=== PATIENT | male | born 1950 | race Caucasian/White ===

== ENCOUNTER 2017-09-24 17:31 | Emergency (ER) | payer OTHER, SELFPAY ==
[2017-09-24 17:36] VITALS: BP 108/68; PULSE 71; RESP 14; TEMP 36.7; O2SAT 93; BMI 30.1
--- NOTE | 2017-09-24 18:24 | PC.NURSE ---
Patient is being treated for multiple myeloma and had stem cell transplants done. He is c/o of headache since September 07. He has stiffness/pain in the neck that comes up the side of the head and around his left eye. There is redness, swelling, and drooping of the left eye.
[2017-09-24 18:30] VITALS: BP 106/68; PULSE 65; RESP 17; O2SAT 92
--- NOTE | 2017-09-24 19:04 | ED_ITS ---
HPI - Neuro Symptoms/Deficit General Chief Complaint: Neuro Symptoms/Deficit Stated Complaint: HEADACHE SINCE THE /DROOPY EYE Time Seen by Provider: 09/24/17 17:51 Source: patient, RN notes reviewed and old records reviewed Limitations: no limitations History of Present Illness HPI Narrative: Patient is a 67-year-old male with history of multiple myeloma presenting with ongoing left-sided headache and neck pain since 09/07/2017. He has been taking Tylenol and his pain medications of morphine and fentanyl patch without any relief. He has noticed his left eyelid is droopy but he has no vision problems. No worsening balance no numbness or tingling. He has not had any fever. He is also having bilateral rib pain he had x-ray somewhere thought to have new lesions. He denies any cough or shortness of breath. He had blood work as outpatient earlier today he is pancytopenic. Onset (ago): week(s) Relieving factors: none On Anticoagulants: Yes (aspirin 81 mg) Associated symptoms: denies other symptoms Related Data Home Medications Medication Instructions Recorded Confirmed aspirin 81 mg PO QDAY #0 10/18/16 09/24/17 sulfamethoxazole-trimethoprim 1 tab PO BID #0 08/03/17 09/24/17 cholecalciferol (vitamin D3) 400 unit PO DAILY 09/24/17 09/24/17 fludrocortisone 0 mg PO SEE INSTRUCTIONS 09/24/17 09/24/17 sennosides [senna] 0 mg PO HS 09/24/17 09/24/17 Previous Rx's Medication Instructions Recorded acyclovir 800 mg PO BID #180 tab 03/19/17 docusate sodium 200 mg PO BID #60 tab 03/19/17 potassium chloride [Klor-Con M20] 10 meq PO BID #60 tab 03/19/17 omeprazole 20 mg PO HS #90 cap 04/07/17 venlafaxine 150 mg PO QDAY #90 cap 04/07/17 hydrocortisone 5 mg PO Q DAY #90 tab 08/14/17 hydrocortisone [Cortef] 15 mg PO AMCC #90 tab 08/14/17 morphine 60 mg PO Q8H #90 tab 08/14/17 atorvastatin [Lipitor] 10 mg PO HS #90 tab 08/24/17 fentanyl 1 patch TOPICAL Q72H #10 patch 04/09/18 gabapentin [Neurontin] 800 mg PO TID #180 cap 08/31/17 Allergies Allergy/AdvReac Type Severity Reaction Status Date / Time aripiprazole [ARIPIPRAZOLE] Allergy Severe BLACKED Verified 09/24/17 19:03 OUT, FLAT, COULDN'T THINK paroxetine [PAROXETINE] Allergy Severe SUICIDE Verified 09/24/17 19:03 THOUGHTS, REVED UP buspirone [BUSPIRONE] Allergy Mild NO Verified 09/24/17 19:03 FEELINGS, BONE carbamazepine [CARBAMAZEPINE] Allergy Mild RASH Verified 09/24/17 19:03 Monoamine Oxidase Inhibitors Allergy Mild DEPRESSION Verified 09/24/17 19:03 [MONOAMINE OXIDASE INHIBITORS] acetaminophen [From TYLENOL] AdvReac Severe liver Verified 09/24/17 19:03 issues lorazepam [From ATIVAN] AdvReac Severe SHAKING, Verified 09/24/17 19:03 AGITATION, CONFUSED pregabalin [From LYRICA] AdvReac Unknown CONFUSION Verified 09/24/17 19:03 Review of Systems Constitutional Denies chills, Denies excessive sweating (sweats on the left side. hasn't noticed issues), Reports fatigue, Denies fever(s), Denies frequent falls, Reports headache(s), Denies lethargy and Denies weakness Eyes Reports as per HPI, Denies blurry vision, Denies exophthalmos, Denies change in vision, Denies diplopia, Denies dry eyes and Denies eye pain ENT Ears, Nose, Mouth, and Throat: Denies vertigo, Denies dizziness, Reports headache(s) and Reports neck pain Cardiovascular Denies chest pain, Denies irregular heart rhythm, Denies lightheadedness, Denies palpitations, Denies dyspnea, Denies dyspnea on exertion and Denies orthopnea Respiratory Denies cough, Denies dyspnea, Denies dyspnea on exertion and Denies wheezing Gastrointestinal Gastrointestinal: Denies abdominal pain, Denies change in bowel habits, Denies diarrhea, Denies nausea and Denies vomiting Genitourinary Denies hematuria, Denies flank pain, Denies urinary incontinence and Denies urinary urgency Musculoskeletal Denies joint swelling, Reports neck pain and Denies numbness Neurologic Denies confusion, Denies vertigo, Denies dizziness, Denies frequent falls, Reports headache(s), Denies memory loss, Denies numbness and Denies weakness Psychiatric Denies confusion and Denies memory loss Endocrine Denies excessive sweating (sweats on the left side. hasn't noticed issues), Reports fatigue and Denies palpitations Allergic/Immunologic Denies wheezing [facility] Social History Smoking Status: Never smoker Exam Const General: cooperative and ill appearing (Chronically ill) Nutritional Appearance: average body habitus Orientation: alert, awake and oriented x3 [facility] Head: normal to inspection, normocephalic and atraumatic Eyes Eyelids: eyelid abnormality left upper eyelid (Slight drooping) erythema (Very mild) and ptosis; without lacerations, without swelling, nontender and without xanthelasmas Conjunctivae: conjunctivae normal Pupils: PERRL (bilaterally. Red reflex present bilaterally) EOM: EOM intact bilaterally Neck Neck: normal visual inspection, full ROM, trachea midline, supple, No midline deformity, tender (Left side laterally no vertebral tenderness no step-offs) and No submandibular swelling Resp Effort & Inspection: normal respiratory effort, able to speak in complete sentences, no respiratory distress and no use of accessory muscles Auscultation: clear to auscultation bilaterally, no rales, no rhonchi and no wheezes Cardio Rate: regular rate Rhythm: regular rhythm Heart Sounds: no click, no gallops, no murmurs and no rubs Pulses: normal peripheral pulses GI Inspection: non-distended Palpation: soft, no hepatosplenomegaly, No guarding, No pulsatile mass and No tender Auscultation: normal bowel sounds Skin General: no rashes or lesions noted, No jaundice and No petechiae Neuro General: alert, oriented x3, gait normal and no focal motor deficits Cranial Nerves: CN's II-XI intact bilaterally Speech: speech normal Motor: strength 5/5 throughout Sensory Exam: no sensory deficits noted MDM - Neuro Symptoms/Deficit MDM Narrative Medical decision making narrative: Patient does have isolated the ptosis no myosis or anhidrosis He is having neck pain. Initial noncontrast head CT and neck are negative. However still having some all left-sided pain. CT angio to rule out any kind of dissection or mass. CT angio negative. Pain is much better. Patient's blood work from earlier today is reviewed he is pancytopenic but at baseline no fever no sign or symptoms of acute infection. This is been ongoing head and neck pain for a couple of weeks. They have an appointment with his oncologist in 5 days. NIH STROKE SCALE: Score=[0] 1a. LOC=0 1b. LOC questions= 0 -->What month is it? How old are you? 1c. LOC commands=0 -->Open and close your eyes. Squeezer Operator and release your hand 2. Best gaze=0 3. Visual Mccarthy=0 4. Facial Palsy=0 5. Motor Arm --Right=0 --Left=0 6. Motor Leg --Right=0 --Left=0 7. Limb Ataxia=0 8.Sensory=0 9. Best language=0 10. Dysarthria=0 11.Extinction and Inattention=0 Differential: Blepharitis, isolated ptosis, Eileen's, medication reaction, meningitis Lab Data Attestation: I reviewed the patient's lab results. Lab Results 09/24/17 09/24/17 Range/Units 19:18 19:18 Lactate 0.8 (0.7-2.1) mmol/L Procalcitonin < 0.05 (<0.5) ng/mL Imaging Data CT scan - head: Radiologist's impression: PROCEDURE: CT HEAD/BRAIN WO CON INDICATIONS: Persistent headache left eyelid droop TECHNIQUE: Noncontrast 4.5 mm thick angled axial sections acquired from the foramen magnum to the vertex, with coronal and sagittal reformats. For radiation dose reduction, the following was used: automated exposure control, adjustment of mA and/or kV according to patient size. COMPARISON: [facility], CT, HEAD WITHOUT CONTRAST, 02/08/2017, 13:50. FINDINGS: Image quality: Excellent. CSF spaces: Basal cisterns are patent. No extra-axial fluid collections. The ventricles are symmetric in size and shape. Brain: No intracranial bleeds or masses. There is cerebral volume loss for age , with resultant ventricular and sulcal prominence. There are periventricular and deep white matter chronic small vessel ischemic changes. There is intracranial internal carotid artery atherosclerosis. Skull and face: Calvarium and visualized facial bones appear intact, without suspicious lesions. Sinuses: Visualized sinuses and mastoids are clear. IMPRESSION: No acute intracranial disease process. CT spine: Radiologist's impression: PROCEDURE: CT CERVICAL SPINE WO CON INDICATIONS: Left-sided neck pain TECHNIQUE: Noncontrast 3 mm thick sections acquired from the skull base to the T4 level. Sagittal and coronal reformats were then constructed. For radiation dose reduction, the following was used: automated exposure control, adjustment of mA and/or kV according to patient size. COMPARISON: None. FINDINGS: Image quality: Excellent. Bones: No fractures or dislocations. Visualized superior ribs are intact. Spine degenerative disease and facet arthropathy noted. Soft tissues: Prevertebral soft tissues are normal in thickness. No paravertebral hematomas. No apical pneumothoraces. IMPRESSION: No fracture. No acute osseous lesion. If there are persistent symptoms or continued clinical suspicion for pathology, then MRI should be considered for further evaluation. Angio head and neck: Radiologist's impression: application services manager report: CT angio brain no acute findings, CT angio neck no acute findings Course Hospital Course: Patient's pain improved some after Toradol but still having. Given a dose of Dilaudid. Patient's pain improved more. Orders Ordered: ED Orders 09/24/17 19:18 Lactate (Lactic Acid) Urgent Procalcitonin Stat 09/24/17 19:19 XR chest 2V Stat 09/24/17 19:20 CT cervical spine wo con Stat CT head/brain wo con Stat 09/24/17 21:25 CT angio head and neck Stat Discontinued Medications Hydromorphone HCl (Dilaudid) 1 mg IV NOW ONE Stop: 09/24/17 20:25 Last Admin: 09/24/17 21:16 Dose: Hydromorphone HCl (Dilaudid) 1 mg IV NOW ONE Stop: 09/24/17 21:19 Last Admin: 09/24/17 21:20 Dose: 1 mg Sodium Chloride (Normal Saline 0.9%) 1,000 mls @ 1,000 mls/hr IV BOLUS ONE Stop: 09/24/17 20:17 Last Infusion: 09/24/17 21:42 Dose: 0 mls/hr Admin: 09/24/17 20:10 Dose: 1,000 mls/hr Ketorolac Tromethamine (Toradol) 30 mg IV NOW ONE Stop: 09/24/17 19:19 Last Admin: 09/24/17 20:10 Dose: 30 mg Last Vital Signs Temp 98.1 F 09/24/17 17:36 Pulse 67 09/24/17 22:36 Resp 12 09/24/17 22:36 BP 114/73 09/24/17 22:36 Pulse Ox 92 09/24/17 22:36 Discharge Plan Departure Patient Disposition: Home, Self-Care Clinical Impression: Ptosis of eyelid, left, Headache Discharge Date/Time: 09/24/17 23:10 Interventions: ED Discharge Assessment Last Done: 09/24/17 23:07 Instructions: DI for Headache Activity Restrictions/Additional Instructions: *You have been diagnosed with headache and left eyelid drooping *What to do: At this time eyelid does not look infected all CT scans were negative today. No other sign of infection at this time. *Take medications as directed *Follow up with your primary care provider in 2-3 days, follow up with Oncology as previously scheduled *Return to ER if you should have fever, weakness, increased pain, vision changes or any new, worsening or concerning symptoms Prescriptions: No Action aspirin 81 MG tablet,delayed release (DR/EC) 81 mg PO QDAY Qty: 0 RF: 0 potassium chloride [Klor-Con M20] 20 MEQ tablet,ER particles/crystals 10 meq PO BID Qty: 60 RF: 5 acyclovir 800 MG tablet 800 mg PO BID Qty: 180 RF: 3 docusate sodium 100 MG capsule 200 mg PO BID Qty: 60 RF: 11 venlafaxine 150 MG capsule,extended release 24hr 150 mg PO QDAY Qty: 90 RF: 3 omeprazole 20 MG capsule,delayed release(DR/EC) 20 mg PO HS Qty: 90 RF: 3 sulfamethoxazole-trimethoprim 800 MG/160 MG tablet 1 tab PO BID Qty: 0 RF: 0 hydrocortisone 5 MG tablet 5 mg PO Q DAY Qty: 90 RF: 0 hydrocortisone [Cortef] 10 MG tablet 15 mg PO AMCC Qty: 90 RF: 0 morphine 60 MG tablet extended release 60 mg PO Q8H Qty: 90 RF: 0 atorvastatin [Lipitor] 10 MG tablet 10 mg PO HS Qty: 90 RF: 3 fentanyl 50 MCG/HR patch 72 hour 1 patch Topical Q72H Qty: 10 RF: 0 gabapentin [Neurontin] 400 MG capsule 800 mg PO TID Qty: 180 RF: 3 sennosides [senna] 8.6 MG tablet PO HS RF: 0 fludrocortisone 0.1 MG tablet PO SEE INSTRUCTIONS RF: 0 cholecalciferol (vitamin D3) 400 unit Tablet 400 unit PO DAILY RF: 0 Referrals: Tulio Daigle MD [Primary Care Provider] -
--- NOTE | 2017-09-24 19:19 | DI.RAD.S_ITS ---
PROCEDURE: XR CHEST 2V INDICATIONS: bilateral rib pain hx of multiple myeloma and Pneumocystis TECHNIQUE: 2 views of the chest were acquired. COMPARISON: [facility], , CHEST 2 VIEW, 07/13/2017, 16:09. FINDINGS: Surgical changes and devices: Right chest wall Port-A-Cath is stable.. Lungs and pleura: No pleural effusions or pneumothorax. Lungs are clear. Mediastinum: Mediastinal contours are normal. Heart size is normal. Bones and chest wall: Multiple bilateral rib fractures are stable. Chronic T12 compression fracture is stable. No suspicious bony abnormalities. Soft tissues appear unremarkable. IMPRESSION: No acute cardiopulmonary disease process. Dictated by: Lida Simpson MD, PhD on 09/24/2017 at 19:55 Approved by: Lida Simpson MD, PhD on 09/24/2017 at 19:56
--- NOTE | 2017-09-24 19:20 | DI.CT.S_ITS ---
PROCEDURE: CT CERVICAL SPINE WO CON INDICATIONS: Left-sided neck pain TECHNIQUE: Noncontrast 3 mm thick sections acquired from the skull base to the T4 level. Sagittal and coronal reformats were then constructed. For radiation dose reduction, the following was used: automated exposure control, adjustment of mA and/or kV according to patient size. COMPARISON: None. FINDINGS: Image quality: Excellent. Bones: No fractures or dislocations. Visualized superior ribs are intact. Spine degenerative disease and facet arthropathy noted. Soft tissues: Prevertebral soft tissues are normal in thickness. No paravertebral hematomas. No apical pneumothoraces. IMPRESSION: No fracture. No acute osseous lesion. If there are persistent symptoms or continued clinical suspicion for pathology, then MRI should be considered for further evaluation. Dictated by: Lida Simpson MD, PhD on 09/24/2017 at 19:56 Approved by: Lida Simpson MD, PhD on 09/24/2017 at 20:00
--- NOTE | 2017-09-24 19:20 | DI.CT.S_ITS ---
PROCEDURE: CT HEAD/BRAIN WO CON INDICATIONS: Persistent headache left eyelid droop TECHNIQUE: Noncontrast 4.5 mm thick angled axial sections acquired from the foramen magnum to the vertex, with coronal and sagittal reformats. For radiation dose reduction, the following was used: automated exposure control, adjustment of mA and/or kV according to patient size. COMPARISON: [facility], CT, HEAD WITHOUT CONTRAST, 02/08/2017, 13:50. FINDINGS: Image quality: Excellent. CSF spaces: Basal cisterns are patent. No extra-axial fluid collections. The ventricles are symmetric in size and shape. Brain: No intracranial bleeds or masses. There is cerebral volume loss for age, with resultant ventricular and sulcal prominence. There are periventricular and deep white matter chronic small vessel ischemic changes. There is intracranial internal carotid artery atherosclerosis. Skull and face: Calvarium and visualized facial bones appear intact, without suspicious lesions. Sinuses: Visualized sinuses and mastoids are clear. IMPRESSION: No acute intracranial disease process. Dictated by: Lida Simpsno MD, PhD on 09/24/2017 at 20:00 Approved by: Lida Simpson MD, PhD on 09/24/2017 at 20:02
[2017-09-24 19:58] VITALS: BP 122/72; PULSE 68; RESP 15; O2SAT 93
[2017-09-24] MEDS: SODIUM CHLORIDE 0.9% 1,000 ML 1000 ML IV (20:10)
[2017-09-24] MEDS: KETOROLAC 60 MG/2 ML VIAL 30 MG IV (20:10)
[2017-09-24 20:18] LABS: Lactate (Lactic Acid) 0.8 mmol/L (0.7-2.1)
[2017-09-24 20:34] LABS: Procalcitonin < 0.05 ng/mL (<0.5)
[2017-09-24 21:05] VITALS: BP 118/66; PULSE 72; RESP 15; O2SAT 94
[2017-09-24] MEDS: HYDROMORPHONE 2 MG INJ 1 MG IV (21:20)
--- NOTE | 2017-09-24 21:25 | DI.CT.S_ITS ---
PROCEDURE: CT ANGIO HEAD AND NECK INDICATIONS: left ptosis with neck pain TECHNIQUE: Pre-contrast 4.5 mm thick sections acquired from the foramen magnum to the vertex. After the administration of intravenous contrast, 1 mm thick sections acquired from the aortic arch through the [place] of [place]. Post-contrast 4.5 mm thick sections then re-acquired from the foramen magnum to the vertex. 3-dimensional spbrwve-zdcgqjmvh-fzayszkuvy (MIP) and/or volume rendering reformats were acquired of the central intracranial vasculature and neck separately. COMPARISON: [facility], CT, SOFT TISSUE NECK W CONTRAST, 02/08/2017, 13:50. [facility], CR, XR CHEST 2V, 09/24/2017, 19:04. FINDINGS: Image quality: Excellent. BRAIN: CSF spaces: Ventricles are normal in size and shape. Basal cisterns are patent. No extra-axial fluid collections. Brain: No midline shift. No intracranial bleeds or masses. Osman-white matter interface appears intact. Skull and face: Calvarium and facial bones appear intact, without suspicious lesions. Orbits appear normal. Sinuses: Sinuses and mastoids are clear. HEAD CT ANGIOGRAPHY: Anterior circulation: Intracranial internal carotid arteries are normal in size and flow. The flow within the paired anterior cerebral arteries is normal and symmetric. The flow within the middle cerebral arteries is normal and symmetric. The anterior communicating artery is seen. No aneurysms are seen. Posterior circulation: Visualized portions of the vertebral arteries demonstrate normal caliber, and join to form a normal appearing basilar artery. Flow within the posterior cerebral arteries is normal and symmetric. No aneurysms are seen. NECK CT ANGIOGRAPHY: Carotid system: The great vessels demonstrate a bovine anatomy as they arise from the aortic arch. The origins of the common carotid arteries appear patent. The common carotid arteries demonstrate normal caliber and courses. The bifurcation regions are both widely patent. The internal carotid arteries demonstrate normal calibers and courses. Posterior circulation: The origins of the vertebral arteries both appear widely patent. The more superior extracranial portions of both vertebral arteries also demonstrate normal courses and calibers. They join to form a normal appearing basilar artery. Soft tissues: Visualized neck soft tissues demonstrate no suspicious abnormalities. Nonspecific scattered scarring/atelectasis in the lung apices Bones: No suspicious bony lesions. Straightening of the normal cervical lordosis and multilevel discogenic changes. Visualized cervical spine appears normally aligned. Chronic left rib fracture with callus formation. IMPRESSION: Normal CTA head. No evidence of focal stenosis or occlusion. Dominant left vertebral artery, and hypoplastic right vertebral artery. No ICA stenosis. Any quantitative measurements of stenosis were performed using NASCET criteria. Dictated by: Jaren Miranda M.D. on 09/25/2017 at 7:40 Approved by: Jaren Miranda M.D. on 09/25/2017 at 7:50
[2017-09-24 21:40] VITALS: BP 117/71; PULSE 68; O2SAT 94
[2017-09-24 22:36] VITALS: BP 114/73; PULSE 67; RESP 12; O2SAT 92
== END 2017-09-24 23:10 | disposition home or self-care (01) ==
PROVIDERS: Emergency Provider Emergency Medicine; Family Provider Internal Medicine; PCP Internal Medicine
DX: H02.402 Unspecified ptosis of left eyelid (principal); R51 Headache
CPT/HCPCS: 36415; 36591; 70450; 70496; 70498; 71046; 72125; 80053; 82784; 83605; 83883; 84145; 84155; 84165; 85025; 96374; 96375; 99283; 99284; 99291; J1170; J1885; Q9967

== ENCOUNTER → 2017-10-08 11:27 | Outpatient (CLI) | payer OTHER, SELFPAY ==
[2017-10-08 12:02] LABS: Add Manual Diff / Slide Review NO; Basophils Percent Auto 0.6 % (0-2); Hematocrit 31.1 % (41-53); Hemoglobin 10.6 g/dL (13.5-17.5); Lymphocytes Percent Auto 17.1 % (25-40); Mean Corpuscular HGB Conc 34.1 % (30-36); Mean Corpuscular Hemoglobin 31.8 PG (26-34); Mean Corpuscular Volume 93.2 fL (80-100); Monocytes Percent Auto 16.5 % (3-14); Neutrophils Absolute Auto 2100 /uL (3000-5900); Neutrophils Percent Auto 64.8 % (50-75); Platelet Count 37 X10^3/uL (150-400); Red Blood Cell Count 3.34 X10^6/uL (4.5-5.9); Red Cell Distribution Width 20.4 % (11.6-14.8); White Blood Cell Count 3.2 X10^3/uL (4.5-11.0)
[2017-10-08 12:17] LABS: Alanine Aminotransferase 64 IU/L (21-72); Albumin 4.3 g/dL (3.5-5.0); Albumin Globulin Ratio 1.8 (1.0-2.8); Alkaline Phosphatase 111 U/L (38-126); Aspartate Aminotransferase 61 IU/L (17-59); BUN Creatinine Ratio 22.7 (6-22); Bilirubin Total 0.4 mg/dL (0.2-1.3); Calcium 9.7 mg/dL (8.4-10.2); Estimated Glomerular Filt Rate > 60.0 mL/min (>60); Globulin 2.4 g/dL (1.7-4.1); Glucose 145 mg/dL (80-110); HEMOLYSIS < 15 (0-50); Potassium 4.4 mmol/L (3.4-5.1); Sodium 145 mmol/L (137-145); Total Protein 6.7 g/dL (6.3-8.2)
[2017-10-08 12:28] LABS: RBC Morphology Normal Morphology
--- NOTE | 2017-10-15 09:05 | ONC.NAV ---
Description: [facility] Appeal Activity: Faxed appeal to [facility] re: pt's ability to continue to receive care and treatment from Dr. Lancaster at . Sent pt copies of the appeal and letter for medical necessity.
== END ==
PROVIDERS: PCP Internal Medicine; Visit Provider Internal Medicine
DX: C90.00 Multiple myeloma not having achieved remission (principal)
CPT/HCPCS: 36415; 80053; 85025

== ENCOUNTER → 2017-10-23 15:20 | Outpatient (CLI) | payer OTHER, SELFPAY ==
[2017-10-23 16:09] LABS: Hematocrit 25.9 % (41-53); Hemoglobin 8.8 g/dL (13.5-17.5); Mean Corpuscular HGB Conc 33.8 % (30-36); Mean Corpuscular Hemoglobin 32.3 PG (26-34); Mean Corpuscular Volume 95.6 fL (80-100); Red Blood Cell Count 2.71 X10^6/uL (4.5-5.9); Red Cell Distribution Width 20.9 % (11.6-14.8)
[2017-10-23 16:13] LABS: Add Manual Diff / Slide Review YES; Alanine Aminotransferase 59 IU/L (21-72); Albumin 3.5 g/dL (3.5-5.0); Albumin Globulin Ratio 1.7 (1.0-2.8); Alkaline Phosphatase 116 U/L (38-126); Aspartate Aminotransferase 25 IU/L (17-59); BUN Creatinine Ratio 32.9 (6-22); Bilirubin Total 0.7 mg/dL (0.2-1.3); Blood Urea Nitrogen 23 mg/dL (9-20); Calcium 8.7 mg/dL (8.4-10.2); Carbon Dioxide 32 mmol/L (22-32); Chloride 100 mmol/L (98-107); Estimated Glomerular Filt Rate > 60.0 mL/min (>60); Globulin 2.1 g/dL (1.7-4.1); Glucose 103 mg/dL (80-110); HEMOLYSIS < 15 (0-50); Potassium 4.3 mmol/L (3.4-5.1); Sodium 139 mmol/L (137-145); Total Protein 5.6 g/dL (6.3-8.2)
[2017-10-23 16:57] LABS: Platelet Count 15 X10^3/uL (150-400); White Blood Cell Count 0.6 X10^3/uL (4.5-11.0)
[2017-10-23 16:58] LABS: Nucleated Red Blood Cells 6 #/Diff
[2017-10-23 16:59] LABS: Anisocytosis 3+; Macrocytosis 1+; Platelet Estimate Decreased on smear; Polychromasia 1+; Tear Drop Cells 1+
[2017-10-23 17:00] LABS: Rouleaux 1+
[2017-10-23 17:06] LABS: Neutrophils Absolute Manual 240 /uL (3000-5900); Total Cells Counted 100
== END ==
PROVIDERS: Family Provider Internal Medicine; PCP Internal Medicine; Referring Provider Internal Medicine Hematology & Oncology; Visit Provider Internal Medicine
DX: C90.02 Multiple myeloma in relapse (principal)
CPT/HCPCS: 36415; 80053; 85025

== ENCOUNTER → 2017-11-05 16:55 | Outpatient (CLI) | payer OTHER, SELFPAY ==
[2017-11-05 17:47] LABS: Hematocrit 22.4 % (41-53); Hemoglobin 7.6 g/dL (13.5-17.5); Mean Corpuscular HGB Conc 34.1 % (30-36); Mean Corpuscular Hemoglobin 33.1 PG (26-34)
[2017-11-05 17:56] LABS: Add Manual Diff / Slide Review YES; White Blood Cell Count 1.8 X10^3/uL (4.5-11.0)
[2017-11-05 18:04] LABS: Alanine Aminotransferase 40 IU/L (21-72); Albumin 3.4 g/dL (3.5-5.0); Albumin Globulin Ratio 1.8 (1.0-2.8); Alkaline Phosphatase 119 U/L (38-126); Aspartate Aminotransferase 23 IU/L (17-59); Bilirubin Total 0.5 mg/dL (0.2-1.3); Blood Urea Nitrogen 28 mg/dL (9-20); Calcium 8.5 mg/dL (8.4-10.2); Carbon Dioxide 30 mmol/L (22-32); Chloride 103 mmol/L (98-107); Estimated Glomerular Filt Rate > 60.0 mL/min (>60); Globulin 1.9 g/dL (1.7-4.1); Glucose 99 mg/dL (80-110); HEMOLYSIS < 15 (0-50); Potassium 4.1 mmol/L (3.4-5.1); Sodium 141 mmol/L (137-145); Total Protein 5.3 g/dL (6.3-8.2)
[2017-11-05 18:14] LABS: Anisocytosis 2+; Macrocytosis 2+; Neutrophils Absolute Manual 1134 /uL (3000-5900); Nucleated Red Blood Cells 5 #/Diff; Total Cells Counted 100
[2017-11-05 18:15] LABS: Platelet Estimate Decreased on smear
[2017-11-09 06:32] LABS: Platelet Count 32 X10^3/uL (150-400)
== END ==
PROVIDERS: Family Provider Internal Medicine; PCP Internal Medicine; Visit Provider Internal Medicine
DX: C90.02 Multiple myeloma in relapse (principal)
CPT/HCPCS: 36415; 80053; 85025

== ENCOUNTER 2017-11-20 20:21 | Observation (INO) | payer OTHER, SELFPAY ==
[2017-11-20 20:26] VITALS: BP 131/75; PULSE 85; RESP 24; TEMP 37.5; O2SAT 91; BMI 28.7
--- NOTE | 2017-11-20 21:10 | DI.RAD.S_ITS ---
PROCEDURE: XR CHEST 1V INDICATIONS: dizziness TECHNIQUE: One view of the chest was acquired. COMPARISON: [facility], CT, PE STUDY (CTA CHEST), 12/29/2016, 13:39. [facility], CR, CHEST 1 VIEW, 12/29/2016, 11:24. [facility], CR, CHEST 2 VIEW, 08/13/2016, 12:42. [facility], CR, XR CHEST 2V, 09/24/2017, 19:04. FINDINGS: Surgical changes and devices: Right chest port with the tip projecting in the upper SVC.. Lungs and pleura: No pleural effusions or pneumothorax. Lungs are clear. Right midlung nodular density projects over the right rib which is unchanged and presumably rib callus Mediastinum: Mediastinal contours appear normal. Heart size is normal. Bones and chest wall: No suspicious bony lesions. Bilateral chronic rib fractures with callus formation. Overlying soft tissues appear unremarkable. IMPRESSION: No acute disease. Dictated by: Jaren Miranda M.D. on 11/20/2017 at 21:42 Approved by: Jaren Miranda M.D. on 11/20/2017 at 21:46
--- NOTE | 2017-11-20 21:19 | PC.NURSE ---
pt states he feels dizzy sudden onset, no pain at this time. denies CP. Pt appears in no acute distress at this time.
[2017-11-20 21:22] LABS: Hematocrit 25.4 % (41-53); Hemoglobin 8.6 g/dL (13.5-17.5); Mean Corpuscular HGB Conc 33.8 % (30-36); Mean Corpuscular Hemoglobin 33.8 PG (26-34); Mean Corpuscular Volume 99.8 fL (80-100); Red Blood Cell Count 2.54 X10^6/uL (4.5-5.9)
[2017-11-20 21:24] LABS: Add Manual Diff / Slide Review YES
[2017-11-20 21:26] LABS: Lactate (Lactic Acid) 1.6 mmol/L (0.7-2.1); Platelet Count 36 X10^3/uL (150-400); White Blood Cell Count 1.4 X10^3/uL (4.5-11.0)
--- NOTE | 2017-11-20 21:39 | ED.FEVER ---
HPI - Fever General Chief Complaint: Fever Stated Complaint: FEVER CANCER PATIENT SOB Time Seen by Provider: 11/20/17 21:04 Source: patient Limitations: no limitations History of Present Illness HPI Narrative: The patient has multiple myeloma. He felt a stem-cell transplant March 2017. He is currently on chemotherapy. He was having a good day, he was outside doing [employer] work. This evening about 8:00 p.m. he came in, he was not feeling well. He lay down for a nap, then awoke with a fever of 102.7. He has no sinus pressure or sore throat. He denies headache or neck pain. He has no cough or chest pain. He denies abdominal pain, nausea or vomiting. He has no urinary complaints. He has no rash. He has been previously instructed by his oncology team to follow-up as soon as possible if he develops a fever. Related Data Home Medications Medication Instructions Recorded Confirmed sulfamethoxazole-trimethoprim 1 tab PO BID #0 08/03/17 11/21/17 cholecalciferol (vitamin D3) 400 unit PO DAILY 09/24/17 11/21/17 sennosides [senna] 0 mg PO HS 09/24/17 11/21/17 pomalidomide 4 mg PO DAILY 10/20/17 11/21/17 fluconazole 200 mg PO DAILY 11/06/17 11/21/17 levofloxacin [Levaquin] 750 mg PO Q24H 11/06/17 11/21/17 aspirin 325 mg tablet,delayed 325 mg PO DAILY 11/12/17 11/21/17 release calcium citrate 500 mg PO BID 11/12/17 11/21/17 daratumumab 20 mg/mL intravenous IV ml 11/12/17 11/12/17 solution dexamethasone 4 mg tablet 4 mg PO WEEKLY 11/12/17 11/21/17 docusate sodium 100 mg capsule 100 mg PO BID tab 11/12/17 11/21/17 fludrocortisone 0.1 mg tablet 0.3 mg PO ONCE tab 11/12/17 11/21/17 hydrocortisone 10 mg tablet 15 mg PO [facility] tab 11/12/17 11/21/17 magnesium L-lactate ER 84 mg 84 mg PO BID tab 11/12/17 11/21/17 tablet,extended release Previous Rx's Medication Instructions Recorded acyclovir 800 mg PO BID #180 tab 03/19/17 potassium chloride [Klor-Con M20] 10 meq PO BID #60 tab 03/19/17 omeprazole 20 mg PO HS #90 cap 04/07/17 venlafaxine 150 mg PO QDAY #90 cap 04/07/17 atorvastatin [Lipitor] 10 mg PO HS #90 tab 08/24/17 gabapentin [Neurontin] 800 mg PO TID #180 cap 08/31/17 fentanyl 1 patch TOPICAL Q72H #10 patch 11/06/17 morphine 60 mg PO Q8H #90 tab 11/06/17 Allergies Allergy/AdvReac Type Severity Reaction Status Date / Time aripiprazole [ARIPIPRAZOLE] Allergy Severe BLACKED Verified 11/12/17 15:16 OUT, FLAT, COULDN'T THINK paroxetine [PAROXETINE] Allergy Severe SUICIDE Verified 11/12/17 15:16 THOUGHTS, REVED UP buspirone [BUSPIRONE] Allergy Mild NO Verified 11/12/17 15:16 FEELINGS, BONE carbamazepine [CARBAMAZEPINE] Allergy Mild RASH Verified 11/12/17 15:16 Monoamine Oxidase Inhibitors Allergy Mild DEPRESSION Verified 11/12/17 15:16 [MONOAMINE OXIDASE INHIBITORS] lorazepam [From ATIVAN] AdvReac Severe SHAKING, Verified 11/12/17 15:16 AGITATION, CONFUSED pregabalin [From LYRICA] AdvReac Unknown CONFUSION Verified 11/12/17 15:16 Review of Systems Review of Systems All systems reviewed & are unremarkable except as noted in HPI and below Constitutional Reports chills, Reports fever(s), Denies headache(s), Reports lethargy and Reports weakness Eyes Denies change in vision, Denies eye discharge and Denies irritation ENT Ears, Nose, Mouth, and Throat: Denies change in voice, Denies dizziness, Denies facial pain, Denies headache(s), Denies nasal congestion, Denies neck pain and Denies sore throat Cardiovascular Denies chest pain, Denies irregular heart rhythm, Denies lightheadedness, Denies palpitations, Denies dyspnea, Denies dyspnea on exertion and Denies orthopnea Respiratory Denies cough, Denies dyspnea, Denies dyspnea on exertion and Denies wheezing Gastrointestinal Gastrointestinal: Denies abdominal pain, Denies change in bowel habits, Denies diarrhea, Denies nausea and Denies vomiting Musculoskeletal Reports back pain, Reports myalgias, Denies neck pain and Denies numbness Integumentary/Breasts Denies erythema, Denies rash and Denies wounds Neurologic Denies dizziness, Denies headache(s), Denies numbness and Reports weakness Endocrine Denies palpitations Allergic/Immunologic Denies wheezing [facility] Medical History IgG multiple myeloma (Chronic) Postherpetic neuralgia at T3-T5 level (Chronic 06/18/15) Adrenal insufficiency (Chronic) Chronic pain syndrome (Chronic 06/18/15) Anxiety (Chronic ~2005) Depression (Chronic) Multiple myeloma not having achieved remission (Chronic 11/10/16) 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) Other and unspecified hyperlipidemia (Chronic) Lumbar back pain with radiculopathy affecting right lower extremity (Chronic) Malignant neoplasm of lumbar vertebra (Inactive) GERD (gastroesophageal reflux disease) (Chronic 12/23/10) 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) Sleep apnea, unspecified (Chronic 12/23/10) Obesity with body mass index (BMI) of 30.0 to 39.9 (Chronic 06/18/15) Uncomplicated opioid dependence (Chronic 06/18/15) Herpes (Resolved ~09/2010) Measles (Resolved ~1954) Mumps (Resolved ~1954) Surgical History Status post spinal surgery (Inactive ~04/2015) S/P excision of lipoma (Inactive ~2001) Anesthesia (Resolved) Family History Father Heart disease Mother Cancer Social History household members: spouse Smoking Status: Never smoker alcohol intake: never Exam Initial Vital Signs Initial Vital Signs: Vital Signs Temperature 99.5 F 11/20/17 20:26 Pulse Rate 85 11/20/17 20:26 Respiratory Rate 24 11/20/17 20:26 Blood Pressure 131/75 H 11/20/17 20:26 Pulse Oximetry 91 11/20/17 20:26 Const General: cooperative, well developed, well groomed, ill appearing and well hydrated Nutritional Appearance: well nourished HENNH Head: normal to inspection, normocephalic and atraumatic Ears: external ears normal and TM's normal bilaterally Nose: external nose normal and No nasal discharge Face and sinus: sinuses nontender, face symmetric, no sinus tenderness and No dry mucous membranes Mouth: oral mucosae normal and moist mucous membranes Teeth and gingiva: dentition normal Throat: tonsils normal and uvula midline Eyes Conjunctivae: conjunctivae normal Cornea: corneas normal Pupils: PERRL EOM: EOM intact bilaterally Neck Neck: normal visual inspection, No lymphadenopathy, No positive Brudzinski's sign, No positive Kernig's sign and No JVD Chest Chest: normal inspection of the chest and normal palpation of entire chest wall Resp Effort & Inspection: normal respiratory effort, able to speak in complete sentences, no respiratory distress and no use of accessory muscles Auscultation: clear to auscultation bilaterally, no rales, no rhonchi and no wheezes Cardio Rate: regular rate Rhythm: regular rhythm Heart Sounds: no click, no gallops, no murmurs and no rubs Pulses: normal peripheral pulses GI Inspection: non-distended Palpation: soft, no hepatosplenomegaly, No guarding, No pulsatile mass and No tender Auscultation: normal bowel sounds Back/Spine/Pelvis Back: No CVA tenderness Cervical Spine: cervical ROM normal and No pain with cervical ROM Thoracic/Lumbar Spine: thoracic and lumbar spine normal to inspection Skin General: no rashes or lesions noted and No petechiae Neuro General: alert, oriented x3, gait normal and no focal motor deficits Speech: speech normal Extrem General: full ROM, no clubbing, cyanosis or edema, no pedal edema and no calf tenderness Psych Mental Status: mental status grossly normal Speech and Movement: speech and movement normal Affect: normal affect Attitude: cooperative Thought Process: normal Course Orders Ordered: ED Orders 11/20/17 20:52 Basic Metabolic Panel Stat Bilirubin Total Stat Complete Blood Count AUTO DIFF Stat Hepatic (Liver) Panel Stat Lactate (Lactic Acid) Stat Partial Thromboplastin Time Stat Procalcitonin Stat Prothrombin Time INR Stat 11/20/17 21:10 XR chest 1V Stat 11/20/17 21:11 EKG-12 Lead Stat 11/20/17 21:38 Blood Culture Stat Acetaminophen (Tylenol) 650 mg PO Q4HR PRN PRN Reason: As Needed for Fever/Mild Pain Last Admin: 11/20/17 21:44 Dose: 650 mg Sodium Chloride (Normal Saline 0.9%) 1,000 mls @ 150 mls/hr IV CONT LESLEE Last Infusion: 11/21/17 00:31 Dose: 0 mls/hr Admin: 11/20/17 22:56 Dose: 150 mls/hr Discontinued Medications Sodium Chloride (Normal Saline 0.9%) 1,000 mls @ 250 mls/hr IV CONT LESLEE Sodium Chloride (Normal Saline 0.9%) 1,000 mls @ 1,000 mls/hr IV BOLUS ONE Stop: 11/20/17 22:37 Last Infusion: 11/20/17 22:53 Dose: 0 mls/hr Admin: 11/20/17 21:45 Dose: 1,000 mls/hr Piperacillin/Tazobactam/Dextrose (Zosyn) 3.375 gm in 50 mls @ 100 mls/hr IV NOW ONE Stop: 11/20/17 23:23 Last Infusion: 11/21/17 00:01 Dose: 0 mls/hr Admin: 11/20/17 23:32 Dose: 100 mls/hr Oxymetazoline HCl (Afrin) 2 sprays NASAL NOW ONE Stop: 11/21/17 00:08 Last Admin: 11/21/17 00:13 Dose: 2 sprays Vital Signs - 8 hr 11/20/17 20:26 11/20/17 22:31 11/20/17 22:33 Temperature 99.5 F 102.9 F H 102.9 F H Pulse Rate 85 86 Respiratory Rate 24 22 Blood Pressure 131/75 H Blood Pressure [Left Arm] 148/72 H Pulse Oximetry 91 99 11/20/17 23:30 11/21/17 00:25 Temperature Pulse Rate 86 87 Respiratory Rate 22 22 Blood Pressure Blood Pressure [Left Arm] 140/72 H 142/76 H Pulse Oximetry 92 89 L MDM - Fever Lab Data Result diagrams: 11/20/17 20:52 11/20/17 20:52 Lab Results 11/20/17 11/20/17 11/20/17 Range/Units 20:52 20:52 20:52 WBC 1.4 L* (4.5-11.0) X10^3/uL RBC 2.54 L (4.5-5.9) X10^6/uL Hgb 8.6 L (13.5-17.5) g/dL Hct 25.4 L (41-53) % MCV 99.8 (80-100) fL MCH 33.8 (26-34) PG MCHC 33.8 (30-36) % RDW 26.0 H (11.6-14.8) % Plt Count 36 L* (150-400) X10^3/uL Neut % (Auto) Not Reportable Lymph % (Auto) Not Reportable [place] % (Auto) Not Reportable Eos % (Auto) Not Reportable Baso % (Auto) Not Reportable Total Counted 100 Seg Neutrophils % 57.0 (38-70) % Lymphocytes % (Manual) 16.0 L (25-45) % Monocytes % (Manual) 26.0 H (2-11) % Eosinophils % (Manual) 1.0 L (2-4) % Neutrophils # (Manual) 798 L (5027-9086) /uL RBC Morphology Not Reportable Anisocytosis 2+ H PT (10.1-12.7) SECONDS INR (0.9-1.3) APTT (26.4-36.2) SECONDS Sodium 136 L (137-145) mmol/L Potassium 4.0 (3.4-5.1) mmol/L Chloride 98 (98-107) mmol/L Carbon Dioxide 29 (22-32) mmol/L BUN 23 H (9-20) mg/dL Creatinine 0.80 (0.66-1.25) mg/dL Estimated GFR > 60.0 (>60) mL/min BUN/Creatinine Ratio 28.8 H (6-22) Glucose 104 (80-110) mg/dL Lactate (0.7-2.1) mmol/L Calcium 8.7 (8.4-10.2) mg/dL Total Bilirubin 0.5 (0.2-1.3) mg/dL Conjugated Bilirubin (0.0-0.3) md/dL Unconjugated Bilirubin (0.0-1.1) mg/dL AST (17-59) IU/L ALT (21-72) IU/L Alkaline Phosphatase (38-126) U/L Total Protein (6.3-8.2) g/dL Albumin (3.5-5.0) g/dL Globulin (1.7-4.1) g/dL Albumin/Globulin Ratio (1.0-2.8) Procalcitonin 0.05 (<0.5) ng/mL 11/20/17 11/20/17 11/20/17 Range/Units 20:52 20:52 20:52 WBC (4.5-11.0) X10^3/uL RBC (4.5-5.9) X10^6/uL Hgb (13.5-17.5) g/dL Hct (41-53) % MCV (80-100) fL MCH (26-34) PG MCHC (30-36) % RDW (11.6-14.8) % Plt Count (150-400) X10^3/uL Neut % (Auto) Lymph % (Auto) [place] % (Auto) Eos % (Auto) Baso % (Auto) Total Counted Seg Neutrophils % (38-70) % Lymphocytes % (Manual) (25-45) % Monocytes % (Manual) (2-11) % Eosinophils % (Manual) (2-4) % Neutrophils # (Manual) (3117-5246) /uL RBC Morphology Anisocytosis PT 11.5 (10.1-12.7) SECONDS INR 1.1 (0.9-1.3) APTT 27 (26.4-36.2) SECONDS Sodium (137-145) mmol/L Potassium (3.4-5.1) mmol/L Chloride (98-107) mmol/L Carbon Dioxide (22-32) mmol/L BUN (9-20) mg/dL Creatinine (0.66-1.25) mg/dL Estimated GFR (>60) mL/min BUN/Creatinine Ratio (6-22) Glucose (80-110) mg/dL Lactate 1.6 (0.7-2.1) mmol/L Calcium (8.4-10.2) mg/dL Total Bilirubin 0.5 (0.2-1.3) mg/dL Conjugated Bilirubin 0.0 (0.0-0.3) md/dL Unconjugated Bilirubin 0.3 (0.0-1.1) mg/dL AST 24 (17-59) IU/L ALT 35 (21-72) IU/L Alkaline Phosphatase 122 (38-126) U/L Total Protein 5.3 L (6.3-8.2) g/dL Albumin 3.4 L (3.5-5.0) g/dL Globulin 1.9 (1.7-4.1) g/dL Albumin/Globulin Ratio 1.8 (1.0-2.8) Procalcitonin (<0.5) ng/mL Imaging Data Chest x-ray: Radiologist's impression: No acute findings MDM Narrative Medical decision making narrative: I discussed the case with Dr.Kris Dickson with the patient's oncology group. He concurred with admission and following of the blood cultures. He concurred with initial doses of antibiotics until blood culture data is available. Dr. Daigle is his clinic doctor but also attractions associate. He has agreed to admission. Discharge Plan Departure Patient Disposition: Admitted as Observation Clinical Impression: Fever, Neutropenia, Multiple myeloma Discharge Date/Time: 11/21/17 01:03 Interventions: ED Discharge Assessment Last Done: 11/21/17 00:31 Admit Date/Time: 11/20/17 23:58 Admit Provider: Tulio Daigle
[2017-11-20 21:44] LABS: BUN Creatinine Ratio 28.8 (6-22); Bilirubin Total 0.5 mg/dL (0.2-1.3); Blood Urea Nitrogen 23 mg/dL (9-20); Calcium 8.7 mg/dL (8.4-10.2); Carbon Dioxide 29 mmol/L (22-32); Chloride 98 mmol/L (98-107); Estimated Glomerular Filt Rate > 60.0 mL/min (>60); Glucose 104 mg/dL (80-110); HEMOLYSIS < 15 (0-50); Sodium 136 mmol/L (137-145)
[2017-11-20] MEDS: ACETAMINOPHEN 325 MG TABLET 650 MG PO (21:44)
[2017-11-20] MEDS: SODIUM CHLORIDE 0.9% 1,000 ML 1000 ML IV (21:45)
[2017-11-20 21:47] LABS: INR 1.1 (0.9-1.3); Prothrombin Time 11.5 SECONDS (10.1-12.7)
[2017-11-20 21:49] LABS: PTT Partial Thromboplastin Tim 27 SECONDS (26.4-36.2)
[2017-11-20 21:53] LABS: Alanine Aminotransferase 35 IU/L (21-72); Albumin 3.4 g/dL (3.5-5.0); Albumin Globulin Ratio 1.8 (1.0-2.8); Alkaline Phosphatase 122 U/L (38-126); Aspartate Aminotransferase 24 IU/L (17-59); Bilirubin Total 0.5 mg/dL (0.2-1.3); Bilirubin Unconjugated 0.3 mg/dL (0.0-1.1); Globulin 1.9 g/dL (1.7-4.1); HEMOLYSIS < 15 (0-50); Total Protein 5.3 g/dL (6.3-8.2)
[2017-11-20 21:58] LABS: Procalcitonin 0.05 ng/mL (<0.5)
[2017-11-20 22:02] LABS: Neutrophils Absolute Manual 798 /uL (3000-5900); Total Cells Counted 100
[2017-11-20 22:05] LABS: Anisocytosis 2+
[2017-11-20 22:31] VITALS: BP 148/72; PULSE 86; RESP 22; TEMP 39.4; O2SAT 99
[2017-11-20 22:33] VITALS: TEMP 39.4
[2017-11-20] MEDS: SODIUM CHLORIDE 0.9% 1,000 ML 150 ML IV (22:56)
[2017-11-20 23:30] VITALS: BP 140/72; PULSE 86; RESP 22; O2SAT 92
[2017-11-20] MEDS: PIPERACILLIN-TAZO 3.375 GM/50 ML FROZ.PIGGY IV (23:32)
[2017-11-21] VITALS (10 sets, daily range): BP systolic 127–147; BP diastolic 70–82; PULSE 65–87; RESP 18–22; TEMP 36.2–38.7; O2SAT 89–99; BMI 28.7
[2017-11-21] MEDS: OXYMETAZOLINE NASAL SPRAY 15 ML 2 SPRAYS NASAL (00:13)
--- NOTE | 2017-11-21 00:14 | PC.NURSE ---
per dr kelley, pt can take all night medications prior to admission. primary RN Felisha Stokes made aware
--- NOTE | 2017-11-21 00:26 | PC.NURSE ---
Attempted to call report, receiving RN unable to take report at this time.
[2017-11-21] MEDS: ACETAMINOPHEN 325 MG TABLET 650 MG PO ×5 (06:25→22:14)
[2017-11-21] MEDS: PIPERACILLIN-TAZO 3.375 GM/50 ML FROZ.PIGGY IV ×3 (06:26→22:15)
[2017-11-21] MEDS: SODIUM CHLORIDE 0.9% 1,000 ML 100 ML IV ×3 (06:28→17:55)
[2017-11-21] MEDS: POTASSIUM CHLORIDE 10 MEQ TAB PO ×2 (08:12→17:53)
[2017-11-21] MEDS: HYDROCORTISONE 10 MG TABLET 15 MG PO (08:12)
[2017-11-21] MEDS: FLUCONAZOLE 100 MG TABLET 200 MG PO (08:22)
[2017-11-21] MEDS: VENLAFAXINE ER 75 MG CAP 150 MG PO (08:22)
[2017-11-21] MEDS: GABAPENTIN 400 MG CAPSULE 800 MG PO ×3 (08:23→20:22)
[2017-11-21] MEDS: DOCUSATE 100 MG CAPSULE PO ×2 (08:23→20:22)
[2017-11-21] MEDS: ASPIRIN EC 325 MG TABLET PO (08:23)
[2017-11-21] MEDS: FLUDROCORTISONE 0.1 MG TABLET 0.3 MG PO (08:24)
[2017-11-21] MEDS: ACYCLOVIR 400 MG TABLET 800 MG PO ×2 (09:08→20:21)
--- NOTE | 2017-11-21 09:38 | PM.HP.1 ---
History of Present Illness Date Patient Seen: 11/21/17 Time Patient Seen: 09:40 Chief complaint: FEVER CANCER PATIENT SOB Narrative: Patient presented to the [place] hospital ED last evening after having fever of 102+ at home. Patient has multiple myeloma and is on 3rd or 4th tear treatment which has resulted in some significant neutropenia and has been instructed by Oncology to come to the hospital with fever like that. He is complaining of a bit of a pre frontal headache. No other specific symptoms however. Feels kind of weak and puny. Was doing just fine before that outside doing some yd work in the very nice weather etc. ED physician spoke with the covering physician for patient's oncologist (who is at [facility] in [place]) who recommended patient be admitted for IV antibiotics until blood cultures and/or other cultures can be fully evaluated. 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) Other and unspecified hyperlipidemia (Chronic) Lumbar back pain with radiculopathy affecting right lower extremity (Chronic) Malignant neoplasm of lumbar vertebra (Inactive) GERD (gastroesophageal reflux disease) (Chronic 12/23/10) 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) Sleep apnea, unspecified (Chronic 12/23/10) Obesity with body mass index (BMI) of 30.0 to 39.9 (Chronic 06/18/15) Uncomplicated opioid dependence (Chronic 06/18/15) Herpes (Resolved ~09/2010) Measles (Resolved ~1954) Mumps (Resolved ~1954) Surgical History Status post spinal surgery (Inactive ~04/2015) S/P excision of lipoma (Inactive ~2001) Anesthesia (Resolved) Family & Social History Family History: Reviewed 11/21/17 by Tulio Daigle MD Social History: household members spouse Prior Living Arrangements House Safety & Behavioral: Feels Safe in Current Yes Environment Been Physically Hurt or No Threatened By a Person Suicidal Ideation Description None Suicide Plan Description No Plan Tobacco & Substance use: Smoking Status Never smoker alcohol intake never alcohol intake frequency other Substance Use Type does not use Meds Home Medications Medication Instructions Recorded Confirmed Type acyclovir 800 mg PO BID #180 tab 03/19/17 11/21/17 Rx potassium chloride [Klor-Con M20] 10 meq PO BID #60 tab 03/19/17 11/21/17 Rx omeprazole 20 mg PO HS #90 cap 04/07/17 11/21/17 Rx venlafaxine 150 mg PO QDAY #90 cap 04/07/17 11/21/17 Rx sulfamethoxazole-trimethoprim 1 tab PO BID #0 08/03/17 11/21/17 History atorvastatin [Lipitor] 10 mg PO HS #90 tab 08/24/17 11/21/17 Rx gabapentin [Neurontin] 800 mg PO TID #180 cap 08/31/17 11/21/17 Rx cholecalciferol (vitamin D3) 400 unit PO DAILY 09/24/17 11/21/17 History sennosides [senna] 0 mg PO HS 09/24/17 11/21/17 History pomalidomide 4 mg PO DAILY 10/20/17 11/21/17 History fentanyl 1 patch TOPICAL Q72H #10 patch 11/06/17 11/21/17 Rx fluconazole 200 mg PO DAILY 11/06/17 11/21/17 History levofloxacin [Levaquin] 750 mg PO Q24H 11/06/17 11/21/17 History morphine 60 mg PO Q8H #90 tab 11/06/17 11/21/17 Rx aspirin 325 mg tablet,delayed 325 mg PO DAILY 11/12/17 11/21/17 History release calcium citrate 500 mg PO BID 11/12/17 11/21/17 History daratumumab 20 mg/mL intravenous IV ml 11/12/17 11/12/17 History solution dexamethasone 4 mg tablet 4 mg PO WEEKLY 11/12/17 11/21/17 History docusate sodium 100 mg capsule 100 mg PO BID tab 11/12/17 11/21/17 History fludrocortisone 0.1 mg tablet 0.3 mg PO ONCE tab 11/12/17 11/21/17 History hydrocortisone 10 mg tablet 15 mg PO [facility] tab 11/12/17 11/21/17 History magnesium L-lactate ER 84 mg 84 mg PO BID tab 11/12/17 11/21/17 History tablet,extended release Allergies Allergy/AdvReac Type Severity Reaction Status Date / Time aripiprazole [ARIPIPRAZOLE] Allergy Severe BLACKED Verified 11/12/17 15:16 OUT, FLAT, COULDN'T THINK paroxetine [PAROXETINE] Allergy Severe SUICIDE Verified 11/12/17 15:16 THOUGHTS, REVED UP buspirone [BUSPIRONE] Allergy Mild NO Verified 11/12/17 15:16 FEELINGS, BONE carbamazepine [CARBAMAZEPINE] Allergy Mild RASH Verified 11/12/17 15:16 Monoamine Oxidase Inhibitors Allergy Mild DEPRESSION Verified 11/12/17 15:16 [MONOAMINE OXIDASE INHIBITORS] lorazepam [From ATIVAN] AdvReac Severe SHAKING, Verified 11/12/17 15:16 AGITATION, CONFUSED pregabalin [From LYRICA] AdvReac Unknown CONFUSION Verified 11/12/17 15:16 Review of Systems Constitutional Constitutional: Reports as per HPI, Denies excessive sweating, Reports fever(s), Reports headache(s), Reports lack of energy, Reports malaise, Reports weakness, Denies weight gain and Denies weight loss Eyes Eyes: Denies change in vision, Denies itchy eyes, Denies loss of vision and Denies other visual disturbances ENT Ears, Nose, Mouth, and Throat: No difficulty swallowing, Yes headache(s) and No neck pain Cardiovascular Cardiovascular: Denies chest pain, Denies fainting, Denies fast heart rate, Denies irregular heart rhythm, Denies rapid, pounding, or irregular heartbeat, Denies shortness of breath, Denies shortness of breath with activity and Denies slow heart rate Respiratory Respiratory: Denies dyspnea and Denies dyspnea on exertion Gastrointestinal Gastrointestinal: Denies abdominal pain, Denies bloating, Denies change in bowel habits, Denies change in stool character, Denies dysphagia, Denies nausea, Denies vomiting and Denies hematemesis Genitourinary Genitourinary: Denies hematuria, Denies difficulty urinating and Denies urinary frequency Musculoskeletal Musculoskeletal: Denies abnormal gait, Denies myalgias, Denies arthralgias, Denies limited range of motion and Denies neck pain Integumentary/Breasts Skin/Breast: Denies bleeding lesions, Denies change in pigmentation, Denies changing lesions, Denies new lesions, Denies rash, Denies skin swelling, Denies sores and Denies jaundice Neurologic Neurologic: Denies abnormal gait, Denies behavioral changes, Denies confusion, Denies syncope, Reports headache(s), Denies loss of vision, Denies memory loss and Reports weakness Psychiatric Psychiatric: Denies behavioral changes, Denies change in appetite, Denies confusion, Denies difficulty concentrating, Denies auditory hallucinations, Denies memory loss, Denies mood swings and Denies suicidal ideation Endocrine Endocrine: Denies excessive sweating and Denies palpitations Hematologic/Lymphatic Hematologic/Lymphatic: Denies easy bleeding, Denies easy bruising and Denies lymphadenopathy Allergic/Immunologic Allergic/Immunologic: Denies itchy eyes Exam Vital Signs (past 8 hours): - 11/21/17 04:44 11/21/17 08:00 11/21/17 08:18 Temperature 98.3 F 98.1 F 98.1 F Pulse Rate 71 66 Respiratory Rate 20 18 Blood Pressure 130/74 H 129/73 H Pulse Oximetry 99 98 Oxygen Delivery Method Nasal Cannula Oxygen Flow Rate 3 Narrative Exam Narrative: HEENT-unremarkable, normocephalic atraumatic Neck-no lymphadenopathy no bruits Lungs-clear anteriorly and posteriorly no wheezes no crackles good breath sounds Heart-regular rate and rhythm no murmur rub or gallop normal S1-S2 Abdomen-positive bowel tones soft nontender nondistended no hepatosplenomegaly no masses palpable Neuro-normal to screening exam, gait not tested Extremities-no cyanosis clubbing or edema Objective Labs Result Diagrams: 11/20/17 20:52 11/20/17 20:52 Labs: Laboratory Results - last 24 hr 11/20/17 11/20/17 11/20/17 20:52 20:52 20:52 WBC 1.4 L* RBC 2.54 L Hgb 8.6 L Hct 25.4 L MCV 99.8 MCH 33.8 MCHC 33.8 RDW 26.0 H Plt Count 36 L* Neut % (Auto) Not Reportable Lymph % (Auto) Not Reportable [place] % (Auto) Not Reportable Eos % (Auto) Not Reportable Baso % (Auto) Not Reportable Total Counted 100 Seg Neutrophils % 57.0 Lymphocytes % (Manual) 16.0 L Monocytes % (Manual) 26.0 H Eosinophils % (Manual) 1.0 L Neutrophils # (Manual) 798 L RBC Morphology Not Reportable Anisocytosis 2+ H PT INR APTT Sodium 136 L Potassium 4.0 Chloride 98 Carbon Dioxide 29 BUN 23 H Creatinine 0.80 Estimated GFR > 60.0 BUN/Creatinine Ratio 28.8 H Glucose 104 Lactate Calcium 8.7 Total Bilirubin 0.5 Conjugated Bilirubin Unconjugated Bilirubin AST ALT Alkaline Phosphatase Total Protein Albumin Globulin Albumin/Globulin Ratio Procalcitonin 0.05 11/20/17 11/20/17 11/20/17 20:52 20:52 20:52 WBC RBC Hgb Hct MCV MCH MCHC RDW Plt Count Neut % (Auto) Lymph % (Auto) [place] % (Auto) Eos % (Auto) Baso % (Auto) Total Counted Seg Neutrophils % Lymphocytes % (Manual) Monocytes % (Manual) Eosinophils % (Manual) Neutrophils # (Manual) RBC Morphology Anisocytosis PT 11.5 INR 1.1 APTT 27 Sodium Potassium Chloride Carbon Dioxide BUN Creatinine Estimated GFR BUN/Creatinine Ratio Glucose Lactate 1.6 Calcium Total Bilirubin 0.5 Conjugated Bilirubin 0.0 Unconjugated Bilirubin 0.3 AST 24 ALT 35 Alkaline Phosphatase 122 Total Protein 5.3 L Albumin 3.4 L Globulin 1.9 Albumin/Globulin Ratio 1.8 Procalcitonin Assessment & Plan Plan: Assessment/Plan Narrative: 1. Fever to 102 in a patient with a neutrophil count of about 800. His white blood cell count is actually stable compared to labs done here recently. This point there is no obvious source of infection given lack of findings with chest x-ray or on exam. Urine has yet to be obtained. Blood cultures have been obtained. Patient was given a dose of Zosyn in the ER we will continue that for now. 2. Thrombocytopenia anemia-patient's numbers are stable and consistent with prior numbers. No need for intervention for either low count at this point 3. Chronic pain-patient with multiple etiologies for chronic pain most prominent being his severe post herpetic neuralgia and severe back pain after bony destruction due to his plasmacytoma/multiple myeloma-is and has been stable on a combination of topical fentanyl and oral morphine. Will also off patient have supplemental oxycodone as necessary. In addition patient is on gabapentin and thus far reports pain control is adequate 4. Adrenal insufficiency-unclear as to the etiology of this weather related to medication or some other issue but patient is chronically on both mineral corticoid as well as corticosteroid. Continue usual doses for now. Patient does not appear to be overly ill and do not think he require stress dose steroids at this point. 5. VTE prophylaxis-patient with thrombocytopenia I do not believe he needs additional prophylaxis against clot at this point. Overall patient is admitted under observation and will likely be able to go home in the next 24 hr plus-minus depending on outcomes. If he does indeed show evidence of actual infection he probably should be admitted as an inpatient and more fully treated. Patient's code status is also verified is full code at this point which is entirely appropriate. Quality VTE Deep Vein Thrombosis/Pulmonary Embolism Present on Admission: No
[2017-11-21] MEDS: MORPHINE ER 30 MG TABLET 60 MG PO ×2 (10:40→17:55)
[2017-11-21] MEDS: POLYETHYLENE GLYCOL 3350 17 GM POWD.PACK PO (11:31)
--- NOTE | 2017-11-21 13:33 | CM.IDA ---
DCP Assessment Note: Pt is a 67 yo male, resident of [place]. Pt under obs for fever over 102, pt w/multiple myeloma. Pt's PCP is Dr Daigle; Insurance is [facility]. Met w/pt and spouse, Lauren, explained SW role. Pt familiar to this BOOT LINER MAKER from prior admission. 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 Pt lives w/his and is active and indp at baseline; although he has had to spend a lot of time in medical facilities d/t medical complications and treatment for his multiple myeloma. This [employer] LIN[employer] MAKER reviewed some of pt's recent history w/he and Lauren. Both Very pleasant, they explained they have been through a lot in the past few years, especially since losing providers Dr Carmichael and Dr Bashir as primary providers. Pt now feels well cared for by Dr Lancaster at [facility]. He has had many stays at [facility] and Lauren often stays in [place] while he is being treated. Both deny needs at this time and pt is eager to return home. Pt/spouse have supportive sons and family/friends to assist if needed. XAVI Bains Discharge Planning/Care Management CM Discharge Assessment Start: 11/21/17 13:26 Freq: Status: Active Protocol: Document 11/21/17 13:26 KRIS (Rec: 11/21/17 13:33 KRIS [id number]) Discharge Planning Assessment Assigned Packing And Wrapping Supervisor KRIS History Provided By Patient Significant Other Has Patient been admitted in last 30 No days? Is this patient on Medicare? Yes Prior Living Arrangements House Household Members spouse Type of transporation used prior to Drives own vehicle admit Independent with ADL's Yes Is patient alert and oriented? Yes Caregiver for Another No Referrals Initiated None needed Discharge Plan Home Transportation Arrangement Spouse Review Status In Process Next Review Type Discharge Review
[2017-11-21] MEDS: HYDROCORTISONE 10 MG TABLET PO (13:39)
[2017-11-21] MEDS: ATORVASTATIN 10 MG TABLET PO (20:22)
[2017-11-21] MEDS: PANTOPRAZOLE 20 MG TABLET PO (20:23)
[2017-11-22 00:10] VITALS: BP 118/74; PULSE 82; RESP 18; TEMP 36.9; O2SAT 94
[2017-11-22 00:30] VITALS: O2SAT 94
[2017-11-22] MEDS: ACETAMINOPHEN 325 MG TABLET 650 MG PO ×2 (02:04→06:30)
[2017-11-22] MEDS: MORPHINE ER 30 MG TABLET 60 MG PO ×2 (02:05→10:37)
[2017-11-22] MEDS: SODIUM CHLORIDE 0.9% 1,000 ML 100 ML IV (04:10)
[2017-11-22 04:31] VITALS: BP 123/79; PULSE 68; RESP 16; TEMP 36.6; O2SAT 94
[2017-11-22] MEDS: PIPERACILLIN-TAZO 3.375 GM/50 ML FROZ.PIGGY IV (06:31)
[2017-11-22 07:00] VITALS: O2SAT 99
[2017-11-22 07:46] VITALS: BP 135/70; PULSE 58; RESP 16; TEMP 36.9; O2SAT 96
[2017-11-22] MEDS: ACYCLOVIR 400 MG TABLET 800 MG PO (08:41)
[2017-11-22] MEDS: HYDROCORTISONE 10 MG TABLET PO (08:41)
[2017-11-22] MEDS: FLUDROCORTISONE 0.1 MG TABLET 0.3 MG PO (08:41)
[2017-11-22] MEDS: GABAPENTIN 400 MG CAPSULE 800 MG PO (08:41)
[2017-11-22] MEDS: POTASSIUM CHLORIDE 10 MEQ TAB PO (08:42)
[2017-11-22] MEDS: VENLAFAXINE ER 75 MG CAP 150 MG PO (08:42)
[2017-11-22] MEDS: DOCUSATE 100 MG CAPSULE PO (08:42)
[2017-11-22] MEDS: FLUCONAZOLE 100 MG TABLET 200 MG PO (08:42)
[2017-11-22] MEDS: ASPIRIN EC 325 MG TABLET PO (08:42)
--- NOTE | 2017-11-22 10:07 | PM.DS.1 ---
History of Present Illness Date Patient Seen: 11/22/17 Time Patient Seen: 10:08 Chief complaint: FEVER CANCER PATIENT SOB Narrative: [place] ED last evening (November 20) after having fever of 102+ at home. Patient has multiple myeloma and is on 3rd or 4th tear treatment which has resulted in some significant neutropenia and has been instructed by Oncology to come to the hospital with fever like that. He is complaining of a bit of a pre frontal headache. No other specific symptoms however. Feels kind of weak and puny. Was doing just fine before that outside doing some yd work in the very nice weather etc. ED physician spoke with the covering physician for patient's oncologist (who is at [facility] in [place]) who recommended patient be admitted for IV antibiotics until blood cultures and/or other cultures can be fully evaluated. Patient has had issues with neutropenic fever in the past but has, as per notes from [place], not shown evidence of actual infection leading to the question of whether not his myeloma is causing his persistent intermittent fever spikes Discharge Providers Date of admission: 11/20/17 23:58 Primary care physician: Tulio Daigle MD Discharge provider: Tulio Daigle MD Discharge Date: 11/22/17 Summary Discharge Diagnosis: 1. Neutropenia 2. Neutropenia with fever 3. Multiple myeloma 4. Chronic pain syndrome 5. Chronic constipation 6. Chronic back pain 7. Chronic post herpetic neuralgia right upper extremity Hospital Course: Patient was admitted from the ED to the hospital floor. He had no further fever after his admission by the ED. He did have temperature in the emergency department of 102+ but that was his last temperature. He was given a dose of Zosyn in the ED which was continued for the duration of his hospitalization Cultures were all negative. Patient did produce some sinus E/upper respiratory symptoms that were fairly minimal however Patient said he felt much better. He was therefore felt to be stable for discharge given his lack of fever and lack of particular findings objectively. He will continue all his usual medications including his Bactrim and fluconazole and valacyclovir as an outpatient. I will add amoxicillin/clavulanic acid for potential sinus infection and he will follow up with his oncologist with whom he has an appointment on the 23 November Status at Discharge Cognitive/behavioral status at discharge: Baseline Functional status at discharge: independent ambulation Overall status at discharge: patient is back to baseline Exam Vital Signs (past 8 hours): - 11/22/17 04:31 11/22/17 07:00 11/22/17 07:46 Temperature 97.9 F 98.4 F Pulse Rate 68 58 L Respiratory Rate 16 16 Blood Pressure 123/79 H 135/70 H Pulse Oximetry 94 99 96 Oxygen Delivery Method Room Air Oxygen Flow Rate 0 Narrative Exam Narrative: HEENT-unremarkable, normocephalic atraumatic Neck-no lymphadenopathy no bruits Lungs-clear anteriorly and posteriorly no wheezes no crackles good breath sounds Heart-regular rate and rhythm no murmur rub or gallop normal S1-S2 Abdomen-positive bowel tones soft nontender nondistended no hepatosplenomegaly no masses palpable Neuro-normal to screening exam, gait not tested Extremities-no cyanosis clubbing or edema Objective Labs Result Diagrams: 11/20/17 20:52 11/20/17 20:52 Labs: Laboratory Last Values WBC 1.4 X10^3/uL (4.5-11.0) L* 11/20/17 20:52 RBC 2.54 X10^6/uL (4.5-5.9) L 11/20/17 20:52 Hgb 8.6 g/dL (13.5-17.5) L 11/20/17 20:52 Hct 25.4 % (41-53) L 11/20/17 20:52 MCV 99.8 fL (80-100) 11/20/17 20:52 MCH 33.8 PG (26-34) 11/20/17 20:52 MCHC 33.8 % (30-36) 11/20/17 20:52 RDW 26.0 % (11.6-14.8) H 11/20/17 20:52 Plt Count 36 X10^3/uL (150-400) L* 11/20/17 20:52 Neut % (Auto) Not Reportable 11/20/17 20:52 Lymph % (Auto) Not Reportable 11/20/17 20:52 [place] % (Auto) Not Reportable 11/20/17 20:52 Eos % (Auto) Not Reportable 11/20/17 20:52 Baso % (Auto) Not Reportable 11/20/17 20:52 Total Counted 100 11/20/17 20:52 Seg Neutrophils % 57.0 % (38-70) 11/20/17 20:52 Lymphocytes % (Manual) 16.0 % (25-45) L 11/20/17 20:52 Monocytes % (Manual) 26.0 % (2-11) H 11/20/17 20:52 Eosinophils % (Manual) 1.0 % (2-4) L 11/20/17 20:52 Neutrophils # (Manual) 798 /uL (5518-8768) L 11/20/17 20:52 RBC Morphology Not Reportable 11/20/17 20:52 Anisocytosis 2+ H 11/20/17 20:52 PT 11.5 SECONDS (10.1-12.7) 11/20/17 20:52 INR 1.1 (0.9-1.3) 11/20/17 20:52 APTT 27 SECONDS (26.4-36.2) 11/20/17 20:52 Sodium 136 mmol/L (137-145) L 11/20/17 20:52 Potassium 4.0 mmol/L (3.4-5.1) 11/20/17 20:52 Chloride 98 mmol/L (98-107) 11/20/17 20:52 Carbon Dioxide 29 mmol/L (22-32) 11/20/17 20:52 BUN 23 mg/dL (9-20) H 11/20/17 20:52 Creatinine 0.80 mg/dL (0.66-1.25) 11/20/17 20:52 Estimated GFR > 60.0 mL/min (>60) 11/20/17 20:52 BUN/Creatinine Ratio 28.8 (6-22) H 11/20/17 20:52 Glucose 104 mg/dL (80-110) 11/20/17 20:52 Lactate 1.6 mmol/L (0.7-2.1) 11/20/17 20:52 Calcium 8.7 mg/dL (8.4-10.2) 11/20/17 20:52 Total Bilirubin 0.5 mg/dL (0.2-1.3) 11/20/17 20:52 Conjugated Bilirubin 0.0 md/dL (0.0-0.3) 11/20/17 20:52 Unconjugated Bilirubin 0.3 mg/dL (0.0-1.1) 11/20/17 20:52 AST 24 IU/L (17-59) 11/20/17 20:52 ALT 35 IU/L (21-72) 11/20/17 20:52 Alkaline Phosphatase 122 U/L (38-126) 11/20/17 20:52 Total Protein 5.3 g/dL (6.3-8.2) L 11/20/17 20:52 Albumin 3.4 g/dL (3.5-5.0) L 11/20/17 20:52 Globulin 1.9 g/dL (1.7-4.1) 11/20/17 20:52 Albumin/Globulin Ratio 1.8 (1.0-2.8) 11/20/17 20:52 Procalcitonin 0.05 ng/mL (<0.5) 11/20/17 20:52 Discharge Plan Discharge Plan Patient Disposition: Home, Self-Care Provider Discharge Instructions Diet: Diet as Tolerated Discharge Data Primary Care Provider: Tulio Daigle Attending Provider: Tulio Daigle Admit Date/Time: 11/20/17 23:58 Quality VTE Deep Vein Thrombosis/Pulmonary Embolism Present on Admission: No
--- NOTE | 2017-11-22 11:37 | CM.DPNOTE ---
Discharge Planning/Care Management CM Discharge Assessment Start: 11/21/17 13:26 Freq: Status: Discharge Document 11/22/17 11:36 (Rec: 11/22/17 11:36 [id number]) Discharge Planning Assessment History Provided By Patient Significant Other Has Patient been admitted in last 30 No days? Is this patient on Medicare? Yes Prior Living Arrangements House Household Members spouse Type of transporation used prior to Drives own vehicle admit Independent with ADL's Yes Is patient alert and oriented? Yes Caregiver for Another No Referrals Initiated None needed Discharge Plan Home Transportation Arrangement Spouse Review Status Complete Next Review Type Discharge Review Per MD patient to discharge home today with supportive . Met with patient and spouse: both agreeable to discharge and spouse will provide transportation.
== END 2017-11-22 11:05 | disposition home or self-care (01) ==
LOC: ED 23:14 → AC 23:59
PROVIDERS: Admitting Provider Internal Medicine; Emergency Provider Emergency Medicine; Family Provider Internal Medicine; PCP Internal Medicine; Visit Provider Internal Medicine
DX: D70.2 Other drug-induced agranulocytosis (principal); R50.81 Fever presenting with conditions classified elsewhere; C90.00 Multiple myeloma not having achieved remission; G89.4 Chronic pain syndrome; K59.09 Other constipation; G58.8 Other specified mononeuropathies; E27.40 Unspecified adrenocortical insufficiency; F41.9 Anxiety disorder, unspecified; G47.33 Obstructive sleep apnea (adult) (pediatric); F32.9 Major depressive disorder, single episode, unspecified; E78.5 Hyperlipidemia, unspecified
CPT/HCPCS: 36591; 71045; 80048; 80076; 81003; 82247; 83605; 84145; 85025; 85610; 85730; 87040; 93005; 96361; 96365; 99217; 99219; 99284; 99285; G0378; J2543

== ENCOUNTER → 2017-12-17 09:42 | Outpatient (CLI) | payer OTHER, SELFPAY ==
[2017-11-21 01:15] VITALS: BMI 28.7
--- NOTE | 2017-12-17 | DI.MRI.S_ITS ---
PROCEDURE: MR HIP RT WO CON INDICATIONS: RIGHT HIP PAIN TECHNIQUE: Noncontrast coronal T1 spin echo and STIR through the bony pelvis. Coronal and axial T2 fast spin echo with fat saturation, sagittal T1 spin echo, and oblique axial T2 fast spin echo with fat saturation through the hip. COMPARISON: [facility], MR, MR HIP RT WO CON, 04/15/2016, 10:45. FINDINGS: Image quality: Excellent. Bones and joints: There is widespread osseous metastatic disease involving the visualized lumbar spine, entire bony pelvis and proximal femurs. 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 No definite articular surface collapse is seen. No pathologic hip joint effusion identified. Severe L5 compression fracture is unchanged. No definite acute fracture seen however limited evaluation given the extensive marrow signal change from metastatic disease. Tendons and ligaments: The gluteus medius and minimus tendons appear intact, without associated muscle atrophy. The nearby proximal iliotibial band also appears intact. The iliopsoas tendon appears intact, without adjacent bursal fluid collections or evidence for impingement syndrome. The origin of the hamstring tendon is intact at the ischial tuberosity, as well as the associated sacrotuberous ligament. The straight and reflected heads of the rectus femoris muscle origin appear intact, as well as the conjoint tendon. The ligamentum teres appears intact where visualized. Labrum and cartilage: The acetabular labrum appears intact in the absence of intra-articular contrast. There is mild degeneration. The alpha angle of the femur is within normal limits at less than 55 degrees. Soft tissues: Visualized muscles demonstrate normal bulk and internal signal. Quadratus femoris muscle demonstrates no internal edema to suggest ischiofemoral impingement. The proximal sciatic neurovascular bundle appears normal adjacent to the hamstring tendons. No free pelvic fluid. Bladder wall thickness is normal. Genitourinary structures and bowel loops appear normal where visualized. 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 No articular surface collapse seen. Widespread osseous metastatic disease, also progressed since the prior study as detailed above. Severe L5 compression fracture, unchanged. Dictated by: Jaren Miranda M.D. on 12/17/2017 at 9:40 Approved by: Jaren Miranda M.D. on 12/17/2017 at 10:10
== END ==
PROVIDERS: Family Provider Nurse Practitioner Gerontology; PCP Internal Medicine; Visit Provider Internal Medicine
DX: M87.852 Other osteonecrosis, left femur (principal); M87.851 Other osteonecrosis, right femur; C80.1 Malignant (primary) neoplasm, unspecified; C79.51 Secondary malignant neoplasm of bone; M48.56XG Collapsed vertebra, not elsewhere classified, lumbar region, subsequent encounter for fracture with delayed healing; M25.551 Pain in right hip
CPT/HCPCS: 73721

== ENCOUNTER → 2017-12-21 13:12 | Outpatient (CLI) | payer OTHER, SELFPAY ==
[2017-11-21 01:15] VITALS: BMI 28.7
[2017-12-21 13:46] LABS: Hematocrit 27.8 % (41-53); Hemoglobin 9.4 g/dL (13.5-17.5); Mean Corpuscular HGB Conc 33.7 % (30-36); Mean Corpuscular Hemoglobin 35.4 PG (26-34); Mean Corpuscular Volume 104.8 fL (80-100); Platelet Count 39 X10^3/uL (150-400); Red Blood Cell Count 2.65 X10^6/uL (4.5-5.9); Red Cell Distribution Width 23.8 % (11.6-14.8); White Blood Cell Count 2.1 X10^3/uL (4.5-11.0)
[2017-12-21 13:50] LABS: Alanine Aminotransferase 38 IU/L (21-72); Albumin 3.9 g/dL (3.5-5.0); Albumin Globulin Ratio 2.1 (1.0-2.8); Alkaline Phosphatase 170 U/L (38-126); Aspartate Aminotransferase 22 IU/L (17-59); BUN Creatinine Ratio 28.9 (6-22); Bilirubin Total 0.5 mg/dL (0.2-1.3); Blood Urea Nitrogen 26 mg/dL (9-20); Calcium 9.8 mg/dL (8.4-10.2); Carbon Dioxide 33 mmol/L (22-32); Chloride 95 mmol/L (98-107); Estimated Glomerular Filt Rate > 60.0 mL/min (>60); Globulin 1.9 g/dL (1.7-4.1); Glucose 106 mg/dL (80-110); HEMOLYSIS < 15 (0-50); Potassium 4.1 mmol/L (3.4-5.1); Sodium 137 mmol/L (137-145); Total Protein 5.8 g/dL (6.3-8.2)
[2017-12-21 13:53] LABS: Add Manual Diff / Slide Review YES
[2017-12-21 14:16] LABS: Anisocytosis 2+; Neutrophils Absolute Manual 1092 /uL (3000-5900); Poikilocytosis 1+; Total Cells Counted 50
[2017-12-23 12:31] LABS: Free Kappa Light Chain 5.5 mg/L (3.3-19.4); Free Kappa/ Lambda Ratio 0.02 (0.26-1.65); Free Lambda 352.7 mg/L (5.7-26.3)
[2017-12-23 13:00] LABS: Immunoglobulin A 5 mg/dL (81-463); Immunoglobulin G, Quantitative 302 mg/dL (694-1618); Immunoglobulin M, Quantitative < 5 mg/dL (48-271)
[2017-12-24 13:52] LABS: Albumin 34 %; Protein/ Creatinine Ratio 155 mg/g creat (22-128); Total Urine Protein 14 mg/dL (5-25); Urine Creatinine, Random 90 mg/dL (20-370)
== END ==
PROVIDERS: Family Provider Nurse Practitioner Gerontology; PCP Internal Medicine; Visit Provider Internal Medicine
DX: C90.00 Multiple myeloma not having achieved remission (principal)
CPT/HCPCS: 36592; 80053; 82784; 83883; 84156; 84166; 85025

== ENCOUNTER 2018-02-07 14:56 | Emergency (ER) | payer OTHER, SELFPAY ==
[2017-11-21 01:15] VITALS: BMI 28.7
[2018-02-07 15:01] VITALS: BP 122/79; PULSE 87; RESP 19; TEMP 37.7; O2SAT 95; BMI 30.1
--- NOTE | 2018-02-07 15:19 | DI.RAD.S_ITS ---
PROCEDURE: XR CHEST 2V INDICATIONS: shortness of breath TECHNIQUE: 2 views of the chest were acquired. COMPARISON: [facility], , XR CHEST 1V, 11/20/2017, 21:14. FINDINGS: Surgical changes and devices: Right chest wall Port-A-Cath is stable. Lungs and pleura: No pleural effusions or pneumothorax. Nodular density is noted in the periphery of the lungs bilaterally concerning for metastatic lesions possibly involving the ribs. Mediastinum: Mediastinal contours are normal. Heart size is normal. Bones and chest wall: No suspicious bony abnormalities. Soft tissues appear unremarkable. IMPRESSION: No acute cardiopulmonary disease process. Bilateral nodular densities in the lung periphery increased in size compared to concerning for metastatic lesions possibly involving the ribs. Dictated by: Lida Simpson MD, PhD on 02/07/2018 at 15:31 Approved by: Lida Simpson MD, PhD on 02/07/2018 at 15:33
--- NOTE | 2018-02-07 15:46 | ED.URI ---
HPI - URI/Sore Throat General Chief Complaint: Upper Respiratory Symptoms Stated Complaint: FEVER,PAIN LEFT ARM,RT WRIST,COUGHING Time Seen by Provider: 02/07/18 15:38 Source: patient Limitations: no limitations History of Present Illness HPI Narrative: This is a 67-year-old male who comes with greater than 1 week of upper respiratory infection and not feeling well. Patient has had fevers up to 101 F according to his . He has had some upper respiratory congestion which clears with Neti pot. Patient has had a cough but it has been nonproductive. He feels like there is a little bit of an itch or tingle in the back of his throat. He is not really having any chest pain or shortness of breath. He does not feel like the infection is in his chest. He has had some pain from his neck down his arm but that has been there before and his physicians have suspected that may be related to his chemo treatment. Patient has had some nausea no vomiting. His most recent treatments do not typically cause nausea. No diarrhea or constipation. No new rashes. No swelling in the lower extremities. Patient was seen Um at his last oncology visit last Thursday 6 days ago. They did do a flu swab and a chest x-ray at that time which were both negative. His states he also took a sputum culture which she has not heard anything about results. She has not really been improving so she brought him in today. Related Data Home Medications Medication Instructions Recorded Confirmed sulfamethoxazole-trimethoprim 1 tab PO DAILY #0 08/03/17 01/04/18 cholecalciferol (vitamin D3) 400 unit PO DAILY 09/24/17 01/04/18 sennosides [senna] 0 mg PO HS 09/24/17 01/04/18 pomalidomide 2 mg PO DAILY 10/20/17 01/04/18 fluconazole 200 mg PO DAILY 11/06/17 01/04/18 levofloxacin [Levaquin] 750 mg PO Q24H 11/06/17 01/04/18 aspirin 325 mg tablet,delayed 325 mg PO DAILY 11/12/17 01/04/18 release calcium citrate 500 mg PO BID 11/12/17 01/04/18 dexamethasone 4 mg tablet 20 mg PO WEEKLY 11/12/17 01/04/18 docusate sodium 100 mg capsule 100 mg PO BID tab 11/12/17 01/04/18 fludrocortisone 0.1 mg tablet 0.3 mg PO ONCE tab 11/12/17 01/04/18 hydrocortisone 10 mg tablet 15 mg PO [facility] tab 11/12/17 01/04/18 magnesium L-lactate ER 84 mg 84 mg PO BID tab 11/12/17 01/04/18 tablet,extended release Cytoxan 13 tab PO DIRECTED 01/04/18 carfilzomib CONTINUOUS IV INFUSION 2XW 01/04/18 Previous Rx's Medication Instructions Recorded acyclovir 800 mg PO BID #180 tab 03/19/17 potassium chloride [Klor-Con M20] 10 meq PO BID #60 tab 03/19/17 omeprazole 20 mg PO HS #90 cap 04/07/17 venlafaxine 150 mg PO QDAY #90 cap 04/07/17 atorvastatin [Lipitor] 10 mg PO HS #90 tab 08/24/17 fentanyl 1 patch TOPICAL Q72H #10 patch 01/04/18 gabapentin 400 mg capsule 800 mg PO TID #180 cap 01/04/18 morphine 60 mg PO Q8H #90 tab 01/04/18 Allergies Allergy/AdvReac Type Severity Reaction Status Date / Time aripiprazole [ARIPIPRAZOLE] Allergy Severe BLACKED Verified 11/12/17 15:16 OUT, FLAT, COULDN'T THINK paroxetine [PAROXETINE] Allergy Severe SUICIDE Verified 11/12/17 15:16 THOUGHTS, REVED UP buspirone [BUSPIRONE] Allergy Mild NO Verified 11/12/17 15:16 FEELINGS, BONE carbamazepine [CARBAMAZEPINE] Allergy Mild RASH Verified 11/12/17 15:16 Monoamine Oxidase Inhibitors Allergy Mild DEPRESSION Verified 11/12/17 15:16 [MONOAMINE OXIDASE INHIBITORS] lorazepam [From ATIVAN] AdvReac Severe SHAKING, Verified 11/12/17 15:16 AGITATION, CONFUSED pregabalin [From LYRICA] AdvReac Unknown CONFUSION Verified 11/12/17 15:16 Review of Systems Review of Systems All systems reviewed & are unremarkable except as noted in HPI and below Constitutional Reports fever(s) ENT Ears, Nose, Mouth, and Throat: Denies dizziness, Reports nasal congestion and Reports nasal discharge Cardiovascular Denies chest pain, Denies irregular heart rhythm, Denies lightheadedness, Reports radiating jaw, neck or arm pain, Denies palpitations, Denies dyspnea, Denies dyspnea on exertion and Denies orthopnea Respiratory Denies cough, Denies dyspnea, Denies dyspnea on exertion and Denies wheezing Gastrointestinal Gastrointestinal: Denies abdominal pain, Denies change in bowel habits, Denies diarrhea, Reports nausea and Denies vomiting Genitourinary Denies hematuria, Denies flank pain, Denies urinary incontinence and Denies urinary urgency Musculoskeletal Denies numbness and Denies other (edema in legs) Integumentary/Breasts Denies rash Neurologic Denies confusion, Denies dizziness and Denies numbness Psychiatric Denies confusion Endocrine Denies palpitations Allergic/Immunologic Denies wheezing [facility] Medical History IgG multiple myeloma (Chronic) Postherpetic neuralgia at T3-T5 level (Chronic 06/18/15) Adrenal insufficiency (Chronic) Chronic pain syndrome (Chronic 06/18/15) Anxiety (Chronic ~2005) Depression (Chronic) Multiple myeloma not having achieved remission (Chronic 11/10/16) 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) Other and unspecified hyperlipidemia (Chronic) Lumbar back pain with radiculopathy affecting right lower extremity (Chronic) Malignant neoplasm of lumbar vertebra (Inactive) GERD (gastroesophageal reflux disease) (Chronic 12/23/10) 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) Sleep apnea, unspecified (Chronic 12/23/10) Obesity with body mass index (BMI) of 30.0 to 39.9 (Chronic 06/18/15) Uncomplicated opioid dependence (Chronic 06/18/15) Herpes (Resolved ~09/2010) Measles (Resolved ~1954) Mumps (Resolved ~1954) Surgical History Status post spinal surgery (Inactive ~04/2015) S/P excision of lipoma (Inactive ~2001) Anesthesia (Resolved) Social History household members: spouse Smoking Status: Never smoker alcohol intake: never Exam Narrative Exam Narrative: GEN: Pale, well-nourished male in mild distress, alert and oriented x 3 HEENT: Atraumatic, pupils are equal round reactive to light, extraocular movements are intact, nares are clear, TMs are clear with no fluid, there is no conjunctival pallor. Throat is clear without any exudates, erythema, tonsillar enlargement or uvular deviation HEART: Regular rate and rhythm without murmur, clicks, rubs. Pulses are equal in upper and lower extremities LUNGS:Lungs clear to auscultation, no wheezes, rales, crackles, chest moves symmetrically, no tachypnea or accessory muscle use. ABD:bowel sounds normal, soft, non-tender, no guarding, rebound, rigidity, no masses noted, no hepatosplenomegaly :No CVA tenderness MSCL: Non-tender, no muscle atrophy, full range of motion NEURO:CN 2-12 intact, sensation normal SKIN: No rashes, no petechiae. Patient does have some ecchymosis on his abdomen various sizes. Initial Vital Signs Initial Vital Signs: Vital Signs Temperature 99.9 F H 02/07/18 15:01 Pulse Rate 87 02/07/18 15:01 Respiratory Rate 19 02/07/18 15:01 Blood Pressure 122/79 02/07/18 15:01 Pulse Oximetry 95 02/07/18 15:01 Course Orders Ordered: ED Orders 02/07/18 15:19 Consult to Respiratory Therapy Evaluate & Treat XR chest 2V Stat 02/07/18 15:45 BNP [B Type Natriuretic Peptide] Stat Blood Culture Stat Complete Blood Count AUTO DIFF Stat Comprehensive Metabolic Panel Stat Lactate (Lactic Acid) Stat Procalcitonin Stat Prothrombin Time INR Stat Troponin & CK Cardiac Panel Stat 02/07/18 15:54 EKG-12 Lead Stat Vital Signs - 8 hr 02/07/18 15:01 02/07/18 16:02 02/07/18 17:00 Temperature 99.9 F H Pulse Rate 87 73 72 Respiratory Rate 19 16 19 Blood Pressure 122/79 Blood Pressure [Right Arm] 129/74 128/78 Pulse Oximetry 95 94 95 02/07/18 18:30 02/07/18 19:26 Temperature Pulse Rate 68 69 Respiratory Rate 11 L 19 Blood Pressure 112/65 Blood Pressure [Right Arm] 133/76 Pulse Oximetry 93 96 MDM - URI/Sore Throat Lab Data Result diagrams: 02/07/18 15:45 02/07/18 15:45 Lab Results 09/23/18 09/23/18 09/23/18 Range/Units 15:45 15:45 15:45 WBC 4.4 L (4.5-11.0) X10^3/uL RBC 2.76 L (4.5-5.9) X10^6/uL Hgb 9.9 L (13.5-17.5) g/dL Hct 29.3 L (41-53) % MCV 105.9 H (80-100) fL MCH 35.6 H (26-34) PG MCHC 33.6 (30-36) % RDW 19.0 H (11.6-14.8) % Plt Count 36 L* (150-400) X10^3/uL Neut % (Auto) 83.7 H (50-75) % Lymph % (Auto) 3.1 L (25-40) % [place] % (Auto) 12.7 (3-14) % Eos % (Auto) 0.3 L (2-4) % Baso % (Auto) 0.2 (0-2) % Neut # (Auto) 3700 (8506-4568) /uL RBC Morphology Not Reportable Hypochromasia 1+ H Poikilocytosis 1+ H Anisocytosis 2+ H PT (10.1-12.7) SECONDS INR (0.9-1.3) Sodium 141 (137-145) mmol/L Potassium 4.1 (3.4-5.1) mmol/L Chloride 101 (98-107) mmol/L Carbon Dioxide 35 H (22-32) mmol/L BUN 19 (9-20) mg/dL Creatinine 0.70 (0.66-1.25) mg/dL Estimated GFR > 60.0 (>60) mL/min BUN/Creatinine Ratio 27.1 H (6-22) Glucose 126 H (80-110) mg/dL Lactate 1.2 (0.7-2.1) mmol/L Calcium 9.0 (8.4-10.2) mg/dL Total Bilirubin 0.4 (0.2-1.3) mg/dL AST 27 (17-59) IU/L ALT 52 (21-72) IU/L Alkaline Phosphatase 124 (38-126) U/L Total Creatine Kinase (55-170) U/L Troponin I (0.01-0.034) ng/mL B-Natriuretic Peptide (<100) Total Protein 5.8 L (6.3-8.2) g/dL Albumin 3.6 (3.5-5.0) g/dL Globulin 2.2 (1.7-4.1) g/dL Albumin/Globulin Ratio 1.6 (1.0-2.8) Procalcitonin (<0.5) ng/mL 02/07/18 02/07/18 02/07/18 Range/Units 15:45 15:45 15:45 WBC (4.5-11.0) X10^3/uL RBC (4.5-5.9) X10^6/uL Hgb (13.5-17.5) g/dL Hct (41-53) % MCV (80-100) fL MCH (26-34) PG MCHC (30-36) % RDW (11.6-14.8) % Plt Count (150-400) X10^3/uL Neut % (Auto) (50-75) % Lymph % (Auto) (25-40) % [place] % (Auto) (3-14) % Eos % (Auto) (2-4) % Baso % (Auto) (0-2) % Neut # (Auto) (1359-7175) /uL RBC Morphology Hypochromasia Poikilocytosis Anisocytosis PT 11.7 (10.1-12.7) SECONDS INR 1.1 (0.9-1.3) Sodium (137-145) mmol/L Potassium (3.4-5.1) mmol/L Chloride (98-107) mmol/L Carbon Dioxide (22-32) mmol/L BUN (9-20) mg/dL Creatinine (0.66-1.25) mg/dL Estimated GFR (>60) mL/min BUN/Creatinine Ratio (6-22) Glucose (80-110) mg/dL Lactate Cancelled (0.7-2.1) mmol/L Calcium (8.4-10.2) mg/dL Total Bilirubin (0.2-1.3) mg/dL AST (17-59) IU/L ALT (21-72) IU/L Alkaline Phosphatase (38-126) U/L Total Creatine Kinase < 20 L (55-170) U/L Troponin I < 0.012 (0.01-0.034) ng/mL B-Natriuretic Peptide (<100) Total Protein (6.3-8.2) g/dL Albumin (3.5-5.0) g/dL Globulin (1.7-4.1) g/dL Albumin/Globulin Ratio (1.0-2.8) Procalcitonin (<0.5) ng/mL 02/07/18 02/07/18 Range/Units 15:45 15:45 WBC (4.5-11.0) X10^3/uL RBC (4.5-5.9) X10^6/uL Hgb (13.5-17.5) g/dL Hct (41-53) % MCV (80-100) fL MCH (26-34) PG MCHC (30-36) % RDW (11.6-14.8) % Plt Count (150-400) X10^3/uL Neut % (Auto) (50-75) % Lymph % (Auto) (25-40) % [place] % (Auto) (3-14) % Eos % (Auto) (2-4) % Baso % (Auto) (0-2) % Neut # (Auto) (7904-0096) /uL RBC Morphology Hypochromasia Poikilocytosis Anisocytosis PT (10.1-12.7) SECONDS INR (0.9-1.3) Sodium (137-145) mmol/L Potassium (3.4-5.1) mmol/L Chloride (98-107) mmol/L Carbon Dioxide (22-32) mmol/L BUN (9-20) mg/dL Creatinine (0.66-1.25) mg/dL Estimated GFR (>60) mL/min BUN/Creatinine Ratio (6-22) Glucose (80-110) mg/dL Lactate (0.7-2.1) mmol/L Calcium (8.4-10.2) mg/dL Total Bilirubin (0.2-1.3) mg/dL AST (17-59) IU/L ALT (21-72) IU/L Alkaline Phosphatase (38-126) U/L Total Creatine Kinase (55-170) U/L Troponin I (0.01-0.034) ng/mL B-Natriuretic Peptide < 29.4 (<100) Total Protein (6.3-8.2) g/dL Albumin (3.5-5.0) g/dL Globulin (1.7-4.1) g/dL Albumin/Globulin Ratio (1.0-2.8) Procalcitonin 0.10 (<0.5) ng/mL Urine Dip Bedside Urine Glucose Negative Bedside Urine Bilirubin - Negative Bedside Urine Ketone - Negative Urine Specific [place] 1.020 Bedside Urine Occult Blood - Negative Bedside Urine pH 6.0 Bedside Urine Protein +/- 15 Bedside Urine Urobilinogen - Negative Bedside Urine Nitrite - Negative Bedside Urine Leukocytes - Negative Esterase Imaging Data Chest x-ray: Radiologist's impression: [address] [address] XRay Report Signed Patient: Umesh Martinez PMR#: [id number] : [id number]:[id number] Age/Sex: 67 / MDate of Service: 02/07/18 Loc: ED Accession Number: [id number] Procedure: XR chest 2V Ordering Provider: Jenn Bazan D.O. PROCEDURE: XR CHEST 2V INDICATIONS: shortness of breath TECHNIQUE: 2 views of the chest were acquired. COMPARISON: [facility], , XR CHEST 1V, 11/20/2017, 21:14. FINDINGS: Surgical changes and devices: Right chest wall Port-A-Cath is stable. Lungs and pleura: No pleural effusions or pneumothorax. Nodular density is noted in the periphery of the lungs bilaterally concerning for metastatic lesions possibly involving the ribs. Mediastinum: Mediastinal contours are normal. Heart size is normal. Bones and chest wall: No suspicious bony abnormalities. Soft tissues appear unremarkable. IMPRESSION: No acute cardiopulmonary disease process. Bilateral nodular densities in the lung periphery increased in size compared to concerning for metastatic lesions possibly involving the ribs. Dictated by: Lida Simpson MD, PhD on 02/07/2018 at 15:31 Approved by: Lida Simpson MD, PhD on 02/07/2018 at 15:33 ECG Data Attestation: I personally reviewed and interpreted this ECG as follows: Interpretation: sinus rhythm with a rate of 72, P are 191, QRS 0101 and QTC of 417. no ST elevation Um appreciated. Nonspecific T-wave abnormalities. Patient does have Q-waves in 1 and aVL inverted P-wave is 3. patient's EKG appears similar except for inverted P-wave from EKG from 11/20/2017. MDM Narrative Medical decision making narrative: This is a [age]-year-old male with known cancer who comes to the emergency department with upper respiratory infectious symptoms. Patient has had fevers at according to his . He was seen about a week ago at his oncology office they did a chest x-ray and a flu swab which were negative patient has continued to have symptoms. He has had some nasal congestion Um and a cough that is been nonproductive. Feels like he has got something kind of further down in his throat. He has not had any shortness of breath or chest pain he has had some left upper arm extremity pain that is somewhat consistent with chronic issues. Patient's lab work does not show any major changes his platelets are on the low end but everything else is improved he does have blood cultures pending but no clear source of infection is found at this time and he does not appear to have a neutropenic fever. Plan for patient to follow up at his appointment tomorrow for recheck. And watchful waiting for blood cultures as well as potential source of infection. Discharge Plan Departure Patient Disposition: Home Clinical Impression: Thrombocytopenia, Acute upper respiratory infection Discharge Date/Time: 02/07/18 19:26 Interventions: ED Discharge Assessment Last Done: 02/07/18 19:26 Activity Restrictions/Additional Instructions: Follow-up at your scheduled appointment tomorrow. Continue home medications as prescribed. Platelets are 36 today, hemoglobin is 9.9 and white blood cell count is 4.4. Blood cultures are pending but there is no clear source of infection today. Return to the emergency department for any new or concerning symptoms such as chest pain, shortness of breath, persistent vomiting, syncope or persistent fevers. Prescriptions: No Action potassium chloride [Klor-Con M20] 20 MEQ tablet,ER particles/crystals 10 meq PO BID Qty: 60 RF: 5 acyclovir 800 MG tablet 800 mg PO BID Qty: 180 RF: 3 venlafaxine 150 MG capsule,extended release 24hr 150 mg PO QDAY Qty: 90 RF: 3 omeprazole 20 MG capsule,delayed release(DR/EC) 20 mg PO HS Qty: 90 RF: 3 sulfamethoxazole-trimethoprim 800 MG/160 MG tablet 1 tab PO DAILY Qty: 0 RF: 0 atorvastatin [Lipitor] 10 MG tablet 10 mg PO HS Qty: 90 RF: 3 gabapentin [Neurontin] 400 mg capsule 800 mg PO TID Qty: 180 RF: 3 fludrocortisone 0.1 mg tablet 0.3 mg PO ONCE RF: 0 aspirin 325 mg tablet,delayed release (DR/EC) 325 mg PO DAILY RF: 0 calcium citrate 500 mg PO BID RF: 0 dexamethasone 4 mg tablet 20 mg PO WEEKLY RF: 0 docusate sodium 100 mg capsule 100 mg PO BID RF: 0 hydrocortisone [Cortef] 10 mg tablet 15 mg PO AMCC RF: 0 magnesium L-lactate 84 mg tablet extended release 84 mg PO BID RF: 0 pomalidomide 4 mg Capsule 2 mg PO DAILY RF: 0 fluconazole 200 mg Tablet 200 mg PO DAILY RF: 0 levofloxacin [Levaquin] 750 mg Tablet 750 mg PO Q24H RF: 0 fentanyl 50 MCG/HR patch 72 hour 1 patch Topical Q72H Qty: 10 RF: 0 morphine 60 MG tablet extended release 60 mg PO Q8H Qty: 90 RF: 0 Cytoxan 13 tab PO DIRECTED RF: 0 carfilzomib Continuous IV Infusion 2XW RF: 0 sennosides [senna] 8.6 MG tablet PO HS RF: 0 cholecalciferol (vitamin D3) 400 unit Tablet 400 unit PO DAILY RF: 0
--- NOTE | 2018-02-07 15:54 | PC.NURSE ---
cough/fever/chills/body aches x1 week, reports history of same r/t pneumonia, last chemo 2 weeks ago, denies cp/nausea/vomiting/diarrhea/injury/fall, appears soa with transfer to bed from , lung sounds diminished in bases, rt>lt, no edema present, appears pale, also c/o rt wrist pain, lt side neck pain, neck pain radiates to rt arm, lessens with reposition of head, reports similar pain r/t spinal lesions in past
[2018-02-07 16:02] VITALS: BP 129/74; PULSE 73; RESP 16; O2SAT 94
[2018-02-07 16:16] LABS: INR 1.1 (0.9-1.3); Prothrombin Time 11.7 SECONDS (10.1-12.7)
[2018-02-07 16:21] LABS: Lactate (Lactic Acid) 1.2 mmol/L (0.7-2.1)
[2018-02-07 16:23] LABS: Neutrophils Absolute Auto 3700 /uL (3000-5900); White Blood Cell Count 4.4 X10^3/uL (4.5-11.0)
[2018-02-07 16:27] LABS: B Type Natriuretic Peptide < 29.4 (<100)
[2018-02-07 16:28] LABS: Add Manual Diff / Slide Review NO; Alanine Aminotransferase 52 IU/L (21-72); Albumin 3.6 g/dL (3.5-5.0); Albumin Globulin Ratio 1.6 (1.0-2.8); Alkaline Phosphatase 124 U/L (38-126); Aspartate Aminotransferase 27 IU/L (17-59); BUN Creatinine Ratio 27.1 (6-22); Basophils Percent Auto 0.2 % (0-2); Bilirubin Total 0.4 mg/dL (0.2-1.3); Blood Urea Nitrogen 19 mg/dL (9-20); Carbon Dioxide 35 mmol/L (22-32); Chloride 101 mmol/L (98-107); Creatine Kinase < 20 U/L (55-170); Eosinophils Percent Auto 0.3 % (2-4); Estimated Glomerular Filt Rate > 60.0 mL/min (>60); Globulin 2.2 g/dL (1.7-4.1); Glucose 126 mg/dL (80-110); HEMOLYSIS < 15 (0-50); Hematocrit 29.3 % (41-53); Hemoglobin 9.9 g/dL (13.5-17.5); Lymphocytes Percent Auto 3.1 % (25-40); Mean Corpuscular HGB Conc 33.6 % (30-36); Mean Corpuscular Hemoglobin 35.6 PG (26-34); Mean Corpuscular Volume 105.9 fL (80-100); Monocytes Percent Auto 12.7 % (3-14); Neutrophils Percent Auto 83.7 % (50-75); Potassium 4.1 mmol/L (3.4-5.1); Red Blood Cell Count 2.76 X10^6/uL (4.5-5.9); Sodium 141 mmol/L (137-145); Total Protein 5.8 g/dL (6.3-8.2)
[2018-02-07 16:40] LABS: Troponin I < 0.012 ng/mL (0.01-0.034)
[2018-02-07 16:53] LABS: Anisocytosis 2+; Platelet Count 36 X10^3/uL (150-400); Poikilocytosis 1+
[2018-02-07 16:54] LABS: Hypochromasia 1+
[2018-02-07 17:00] VITALS: BP 128/78; PULSE 72; RESP 19; O2SAT 95
[2018-02-07 18:30] VITALS: BP 133/76; PULSE 68; RESP 11; O2SAT 93
[2018-02-07 19:26] VITALS: BP 112/65; PULSE 69; RESP 19; O2SAT 96
[2018-02-08 13:32] LABS: Acinetobacter baumannii Not Detected (Not Detect); Candida albicans Not Detected (Not Detect); Candida glabrata Not Detected (Not Detect); Candida krusei Not Detected (Not Detect); Candida parapsilosis Not Detected (Not Detect); Candida tropicalis Not Detected (Not Detect); E. coli Not Detected (Not Detect); Enterobacter cloacae complex Not Detected (Not Detect); Enterobacteriaceae species Not Detected (Not Detect); Enterococcus species Not Detected (Not Detect); Haemophilus influenzae Not Detected (Not Detect); KPC (carbapenem-resist gene) Not Detected (Not Detect); Listeria monocytogenes Not Detected (Not Detect); Neisseria meningitidis Not Detected (Not Detect); Proteus species Not Detected (Not Detect); Pseudomonas aeruginosa Not Detected (Not Detect); Serratia marcescens Not Detected (Not Detect); Streptococcus agalactiae (Gr B Not Detected (Not Detect); Streptococcus pneumonia Not Detected (Not Detect); Streptococcus pyogenes (Gr A) Not Detected (Not Detect); Streptococcus species Not Detected (Not Detect)
[2018-02-08 13:34] LABS: Methicillin-resistant gene Detected (Not Detect); Staphylococcus species Detected (Not Detect)
--- NOTE | 2018-02-08 13:45 | PC.NURSE ---
lab called with post first bottle blood cx, staph, not aurious, called dr. machado office/ pt has appt today. spoke with alvarado who will follow up with this
== END 2018-02-07 19:26 | disposition home or self-care (01) ==
PROVIDERS: Emergency Provider Emergency Medicine; Family Provider Internal Medicine; PCP Internal Medicine
DX: D69.6 Thrombocytopenia, unspecified (principal); J06.9 Acute upper respiratory infection, unspecified
CPT/HCPCS: 36415; 71046; 80053; 81003; 82550; 82553; 83605; 83880; 84145; 84484; 85025; 85610; 87040; 87150; 87205; 93005; 99283; 99285

== ENCOUNTER 2018-02-26 09:45 | Outpatient (RCR) | payer OTHER, SELFPAY ==
[2017-11-21 01:15] VITALS: BMI 28.7
--- NOTE | 2018-02-25 16:40 | PT.OPPOC ---
Current Diagnoses Radiculopathy, site unspecified (02/26/18) Other symptoms and signs involving the musculoskeletal system (02/26/18) Provider Visit Care Team Role Provider Type Tulio Daigle MD Attending Provider Physician Family Provider Primary Care Provider Specialty: Internal Medicine Address: [address] [place] [address], [id number] Email: [email or web address] Plan Of Care PT-OP-T Assessment and Plan Start: 02/25/18 17:27 Freq: Status: Active Protocol: Document 02/25/18 17:30 EA (Rec: 02/25/18 17:41 EA [id number]) Physical Therapy Assessment Rehab Potential Rehabilitation Potential Fair Evaluation Complexity Number of Personal Factors/Comorbidities 3 or More Number of Body Systems Impaired 4 or More Clinical Presentation at Evaluation Unstable Impairments Impairments Activity Tolerance Functional Activities Functional Mobility Gait Pain Posture ROM Soft Tissue Mobility Strength Other Concerns Fall Risk yes Barriers to Rehabilitation Ongoing cancer treatment and other comorbidities Goals Four Impairment Impaired shoulder strength Group Home Goal (LTG) Patient will increase shoulder flexors, abductors, rotators, and scapular retractors to improve posture. LTG Duration 4 wks. Three Impairment Impaired Cervical ROM in most planes of motion Commercial Airplane Pilot Goal (LTG) Patient will increase cervical ROM flexion/Ext, side flexion and rotation to normal/ functional range without increase in pain. LTG Duration 4 wks Two Impairment Impaired cervical/head and shoulder posture Group Home Goal (LTG) Patient will learned and improved posture to near normal range to prevent muscular imbalance and improve symtoms. LTG Duration 6 wks One Impairment Neck disability index score of 47/50 Commercial Airplane Pilot Goal (LTG) Neck disability index score of less 30/50 LTG Duration 4 wks Assessment Summary Assessment Male 67 y/o patient presented with cervical pain radiating to left arm with referring diagnosis of cervical radiculopathy. Today patient demonstrates poor cervical posture with acute distress due to moderate to severe left cervical pain that radiates from left shoulder down to arm with tingling sensation to thumb and index finger. Vertebral artery reveals negative and positive to traction test. Other neural tests not tested due to increased in pain. Patient current symptoms and shoulder dysfunction limits his ability to functional at his highest. Patient would benefit with skilled PT to address cervical ROM limitation, L shoulder and arm weakness, decreasing pain and tenderness to cervical and arm region, and educating patient with posture and other HEP. Physical Therapy Plan Frequency and Duration Frequency of Treatment 2x/Week Duration of Treatment 12 Plan of Care Start Date 02/25/18 Plan of Care End Date 05/20/18 Therapeutic Interventions Therapeutic Interventions Home Exercise Program Joint Mobilizations Manual Therapy Patient/Caregiver Education Self-Care/Home Management Soft Tissue Mobilization Taping Therapeutic Exercises Modalities Cold Pack/Ice Massage Electric Stimulation Hot Packs Paraffin Bath Traction- Mechanical Ultrasound Other Referrals/Consults Referrals/Consults Recommended Patient to see referring physician to r/o elvin. Next Visit Focus/Plan Next Note Type Treatment Note Plan of Care Dates Plan of Care Start Date 02/25/18 Plan of Care End Date 05/20/18 Please Sign and Return: I have reviewed this Plan of Care and certify that the skilled therapy services above are required to meet the patient?s needs. Physician Signature Date Printed Name and Credentials Clinical Instructor Signature Printed Name and Credentials
--- NOTE | 2018-02-25 17:35 | PT.OIE ---
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) Other and unspecified hyperlipidemia (Chronic) Lumbar back pain with radiculopathy affecting right lower extremity (Chronic) Malignant neoplasm of lumbar vertebra (Inactive) GERD (gastroesophageal reflux disease) (Chronic 12/23/10) 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) Sleep apnea, unspecified (Chronic 12/23/10) Obesity with body mass index (BMI) of 30.0 to 39.9 (Chronic 06/18/15) Uncomplicated opioid dependence (Chronic 06/18/15) Herpes (Resolved ~09/2010) Measles (Resolved ~1954) Mumps (Resolved ~1954) Past Surgical History (Last Reviewed 02/26/18 @ 19:30 by Yung Deras DO) Status post spinal surgery (Inactive ~04/2015) S/P excision of lipoma (Inactive ~2001) Anesthesia (Resolved) Provider Visit Care Team Role Provider Type Tulio Daigle MD Attending Provider Physician Family Provider Primary Care Provider Specialty: Internal Medicine Address: [address] [place] [address], [facility] Email: [email or web address] Physical Therapy Initial Evaluation PT-OP-A Visit Information Start: 02/25/18 17:27 Freq: Status: Active Protocol: Document 02/25/18 17:30 EA (Rec: 02/25/18 17:41 EA [id number]) Out-Patient Physical Therapy Visit Information Visit Information Visit Type Initial Evaluation Visit Start Time 15:15 Visit Stop Time 16:00 Total Visit Minutes 45 Visit Number 1 Evaluation Information Evaluation Date 02/25/18 PT-OP-B Current Condition Start: 02/25/18 17:27 Freq: Status: Active Protocol: Document 02/25/18 17:30 EA (Rec: 02/25/18 17:41 EA [id number]) Current Condition History of Current Condition Onset Date 04/16/18 Current Complaints Left cervical constant shooting/aching pain radiated down to arm History of Current Condition Patient reports present condition strated on 02/14/18 with no known recent injury or surgery; states pain was abrupt that brought him to E.R , states had MRI with cervical disc herniation result. Patient reports pain meds, heat, cold, and massage does not help. Patient reports due to pain and ongoing cancer treatment he is unable to function independently on his ADL's; states his helps him in most except bed to the BR transfers. Patient also reports he has been most of the time in bed due pain in the neck and shoulder. Prior Treatments and Tests Ongoing chemotherapy treatment . Future Testing and Treatments Planned Unable to undergo neck surgery due to low blood count. Treatment Goals Patient/Caregiver Goals Patient wants to decrease pain and so he could sleep and rest well. Prior Functional Status Baseline Function- Other Indepedent in all ADL's functional transfers and mobility prior to onset of cancer which was about 2 years ago. Current Functional Impairments (Reported) Functional Limitations- ADL's Dependent. With 's help Functional Limitations- Mobility/Gait Indep only from bed to BR Functional Limitations- Work/School Retired Functional Limitations- Recreation/ Unable due to lack of energy Hobbies and strength. Functional Limitations- Other Lives with his in a single level house with ADL's dependency with the help of his except mobility from bed to BR. Uses wheelchair with outside ambulation. PT-OP-C Subjective Start: 02/25/18 17:27 Freq: Status: Active Protocol: Document 02/25/18 17:30 EA (Rec: 02/25/18 17:41 EA [id number]) OP-PT Subjective Patient Comments Patient Comments Patient c/o constant shooting/ aching pain that radiates from left cervical to left arm rated 8/10 with numbness to thumb area. Pt reports pain limits his ADL's and as well resting. Patient refused to go to E.R as my recommendation as he feels long waiting would never tolerated. Patient Reported Progress Worse Patient Questionnaires Neck Disability Index NDI Score 47 Neck Disability Index Impairment 80 to 99% Impaired (Score 40- 49) OP-PT Pain Assessment Pain Assessment Grid Paper Pain Assessment Grid Completed Yes Location Left Lower Neck Pain Location Details left cervical, arm Intensity 8 Scale Used Numeric (1 - 10) Description Aching Shooting Frequency Constant Radiating Location left shoulder and arm Pain Aggravating Factors Changing Position Pain Alleviating Factors Changing Position Patient Stated Pain Goal enough to make him rest and sleep Home Pain Medication Use Pain Medications Used Yes Pain Behaviors Pain Behaviors Facial Grimacing Guarding Moaning PT-OP-J Posture/Palpation/Skin Start: 02/25/18 17:27 Freq: Status: Active Protocol: Document 02/25/18 17:30 EA (Rec: 03/01/18 07:41 EA [id number]) Posture Evaluation Position Sitting Evaluation View Laterla, Post Head/C-Spine Posture Side Bent Left Side Bent Right Forward Head Thorax Posture Neutral Shoulder Posture (L) Rounded (R) Rounded Scapula Posture (L) Protracted (R) Protracted Palpation Assessment Location One Palpation Location Left traps, scalenes, posterior cervical, left arm Palpation Findings Muscle Guarding Tenderness Palpation Details Left arm,shoulder very senstive to palpate with no signs of acute inflammation. Grade 2 tenderness over traps and posterior neck Skin Assessment Other Assessments Skin Assessment Comments No signs of acute inflammation noted PT-OP-K Range of Motion Start: 02/25/18 17:27 Freq: Status: Active Protocol: Document 02/25/18 17:30 EA (Rec: 03/01/18 07:41 EA [id number]) Cervical Spine Range of Motion Cervical Spine Active Degrees Testing Position Sitting Flexion 25 Extension 20 Rotation Left 15 Rotation Right 55 Lateral Flexion Left 15 Lateral Flexion Right 45 ROM Limitations Pain Comments All cervical planes movement increased pain except with right side bending Shoulder Goniometric Range of Motion Shoulder Measured in Degrees Right Shoulder ROM WFL Yes Shoulder ROM Limitations Comments Left shoulder not tested due to hypersensitivity, pain and weakness PT-OP-L Special Tests Start: 02/25/18 17:27 Freq: Status: Active Protocol: Document 02/25/18 17:30 EA (Rec: 03/01/18 07:41 EA [id number]) Special Tests Cervical Spine Special Tests Other- 1 Test Results Cervical traction Comments decreased symptoms Vertebral Artery Test Results negative Comments Pain increased Other Special Tests Special Tests Cervical facets and other neural tests not performed due to severe pain PT-OP-M Strength Start: 02/25/18 17:27 Freq: Status: Active Protocol: Document 02/25/18 17:30 EA (Rec: 03/01/18 07:41 EA [id number]) Cervical Spine Strength Cervical Spine Manual Muscle Testing Comments Not tested due to moderate to severe pain but with at least 3/5 with spontaneous postural movement. Shoulder Strength Shoulder Manual Muscle Testing Left Reason Not Measured Pain Comments Not tested properly due to increased in shoulder and arm pain but with at least 3/5 except with shoulder ABD, Flexion, elevation with at least 3-/5. Elbow/Forearm Strength Elbow and Forearm Manual Muscle Testing Left Reason Not Measured Pain Wrist Strength Wrist Manual Muscle Testing Left Flexion (C7) 3+ Fair+ Comments Pain increased with most of the major muscles tested PT-OP-Q Treatments Start: 02/25/18 17:27 Freq: Status: Active Protocol: Document 02/25/18 17:30 EA (Rec: 03/01/18 07:41 EA [id number]) Self-Care/Home Management Treatment Education Patient Education Pain Management Posture Other Education Discussed importance of the posture. PT-OP-T Assessment and Plan Start: 02/25/18 17:27 Freq: Status: Active Protocol: Document 02/25/18 17:30 EA (Rec: 02/25/18 17:41 EA [id number]) Physical Therapy Assessment Rehab Potential Rehabilitation Potential Fair Evaluation Complexity Number of Personal Factors/Comorbidities 3 or More Number of Body Systems Impaired 4 or More Clinical Presentation at Evaluation Unstable Impairments Impairments Activity Tolerance Functional Activities Functional Mobility Gait Pain Posture ROM Soft Tissue Mobility Strength Other Concerns Fall Risk yes Barriers to Rehabilitation Ongoing cancer treatment and other commorbidities Goals Four Impairment Impaired shoulder strength Field Crop Grower Goal (LTG) Patient will increase shoulder flexors, abductors, rotators, and scapular retractors to improve posture. LTG Duration 4 wks. Three Impairment Impaired Cervical ROM in most planes of motion Field Crop Grower Goal (LTG) Patient will increase cervical ROM flexion/Ext, side flexion and rotation to normal/ functional range without increase in pain. LTG Duration 4 wks Two Impairment Impaired cervical/head and shoulder posture Custodial Goal (LTG) Patient will learned and improved posture to near normal range to prevent muscular imbalance and improve symtoms. LTG Duration 6 wks One Impairment Neck disability index score of 47/50 Field Crop Grower Goal (LTG) Neck dysability index score of less 30/50 LTG Duration 4 wks Assessment Summary Assessment Male 67 y/o patient presented with cervical pain radiating to left arm with referring diagnosis of cervical radiculopathy. Today patient demonstrates poor cervical posture with acute distress due to moderate to severe left cervical pain that radiates from left shoulder down to arm with tingling sensation to thumb and index finger. Vertebral artery reveals negative and positive to traction test. Other neural tests not tested due to increased in pain. Patient current symptoms and shoulder dysfunction limits his ability to functiona at his highest. Patient would benefit with skilled PT to address cervical ROM limitation, L shoulder and arm weakness, decreasing pain and tenderness to cervical and arm region, and educating patient with posture and other HEP. Physical Therapy Plan Frequency and Duration Frequency of Treatment 2x/Week Duration of Treatment 12 Plan of Care Start Date 02/25/18 Plan of Care End Date 05/20/18 Therapeutic Interventions Therapeutic Interventions Home Exercise Program Joint Mobilizations Manual Therapy Patient/Caregiver Education Self-Care/Home Management Soft Tissue Mobilization Taping Therapeutic Exercises Modalities Cold Pack/Ice Massage Electric Stimulation Hot Packs Paraffin Bath Traction- Mechanical Ultrasound Other Referrals/Consults Referrals/Consults Recommended Patient to see referring physician to r/o shinnanda. Next Visit Focus/Plan Next Note Type Treatment Note
--- NOTE | 2018-02-26 10:30 | PT.OTN ---
Current Diagnoses Radiculopathy, site unspecified (02/26/18) Other symptoms and signs involving the musculoskeletal system (02/26/18) Physical Therapy Treatment Note PT-OP-A Visit Information Start: 02/25/18 17:27 Freq: Status: Active Protocol: Document 02/26/18 10:45 DCW (Rec: 03/01/18 18:01 DCW [id number]) Out-Patient Physical Therapy Visit Information Visit Information Visit Type Treatment Note Visit Start Time 10:45 Visit Stop Time 11:35 Total Visit Minutes 50 Visit Number 2 Number of [employer] PROFESSIONAL Visits 0 Evaluation Information Evaluation Date 02/25/18 PT-OP-B Current Condition Start: 02/25/18 17:27 Freq: Status: Active Protocol: Document 02/25/18 17:30 EA (Rec: 02/25/18 17:41 EA [id number]) Current Condition History of Current Condition Onset Date 04/16/18 Current Complaints Left cervical constant shooting/aching pain radiated down to arm History of Current Condition Patient reports present condition strated on 02/14/18 with no known recent injury or surgery; states pain was abrupt that brought him to E.R , states had MRI with cervical disc herniation result. Patient reports pain meds, heat, cold, and massage does not help. Patient reports due to pain and ongoing cancer treatment he is unable to function independently on his ADL's; states his helps him in most except bed to the BR transfers. Patient also reports he has been most of the time in bed due pain in the neck and shoulder. Prior Treatments and Tests Ongoing chemotherapy treatment . Future Testing and Treatments Planned Unable to undergo neck surgery due to low blood count. Treatment Goals Patient/Caregiver Goals Patient wants to decrease pain and so he could sleep and rest well. Prior Functional Status Baseline Function- Other Indepedent in all ADL's functional transfers and mobility prior to onset of cancer which was about 2 years ago. Current Functional Impairments (Reported) Functional Limitations- ADL's Dependent. With 's help Functional Limitations- Mobility/Gait Indep only from bed to BR Functional Limitations- Work/School Retired Functional Limitations- Recreation/ Unable due to lack of energy Hobbies and strength. Functional Limitations- Other Lives with his in a single level house with ADL's dependency with the help of his except mobility from bed to BR. Uses wheelchair with outside ambulation. PT-OP-C Subjective Start: 02/25/18 17:27 Freq: Status: Active Protocol: Document 02/26/18 10:45 DCW (Rec: 03/01/18 18:01 DCW [id number]) OP-PT Subjective Patient Comments Patient Comments I'm still recovering from my appointment yesterday. PT-OP-J Posture/Palpation/Skin Start: 02/25/18 17:27 Freq: Status: Active Protocol: Document 02/25/18 17:30 EA (Rec: 03/01/18 07:41 EA [id number]) Posture Evaluation Position Sitting Evaluation View Laterla, Post Head/C-Spine Posture Side Bent Left Side Bent Right Forward Head Thorax Posture Neutral Shoulder Posture (L) Rounded (R) Rounded Scapula Posture (L) Protracted (R) Protracted Palpation Assessment Location One Palpation Location Left traps, scalenes, posterior cervical, left arm Palpation Findings Muscle Guarding Tenderness Palpation Details Left arm,shoulder very senstive to palpate with no signs of acute inflammation. Grade 2 tenderness over traps and posterior neck Skin Assessment Other Assessments Skin Assessment Comments No signs of acute inflammation noted PT-OP-K Range of Motion Start: 02/25/18 17:27 Freq: Status: Active Protocol: Document 02/25/18 17:30 EA (Rec: 03/01/18 07:41 EA [id number]) Cervical Spine Range of Motion Cervical Spine Active Degrees Testing Position Sitting Flexion 25 Extension 20 Rotation Left 15 Rotation Right 55 Lateral Flexion Left 15 Lateral Flexion Right 45 ROM Limitations Pain Comments All cervical planes movement increased pain except with right side bending Shoulder Goniometric Range of Motion Shoulder Measured in Degrees Right Shoulder ROM WFL Yes Shoulder ROM Limitations Comments Left shoulder not tested due to hypersensitivity, pain and weakness PT-OP-L Special Tests Start: 02/25/18 17:27 Freq: Status: Active Protocol: Document 02/25/18 17:30 EA (Rec: 03/01/18 07:41 EA [id number]) Special Tests Cervical Spine Special Tests Other- 1 Test Results Cervical traction Comments decreased symptoms Vertebral Artery Test Results negative Comments Pain increased Other Special Tests Special Tests Cervical facets and other neural tests not performed due to severe pain PT-OP-M Strength Start: 02/25/18 17:27 Freq: Status: Active Protocol: Document 02/25/18 17:30 EA (Rec: 03/01/18 07:41 EA [id number]) Cervical Spine Strength Cervical Spine Manual Muscle Testing Comments Not tested due to moderate to severe pain but with at least 3/5 with spontaneous postural movement. Shoulder Strength Shoulder Manual Muscle Testing Left Reason Not Measured Pain Comments Not tested properly due to increased in shoulder and arm pain but with at least 3/5 except with shoulder ABD, Flexion, elevation with at least 3-/5. Elbow/Forearm Strength Elbow and Forearm Manual Muscle Testing Left Reason Not Measured Pain Wrist Strength Wrist Manual Muscle Testing Left Flexion (C7) 3+ Fair+ Comments Pain increased with most of the major muscles tested PT-OP-Q Treatments Start: 02/25/18 17:27 Freq: Status: Active Protocol: Document 02/26/18 10:45 DCW (Rec: 03/01/18 18:01 DCW [id number]) Manual Therapy Treatment Soft Tissue Mobilization Levator scap Body Location Left levator Mobilization Type Myofascial Release Sustained Pressure Trigger Point Release Intensity/Depth Moderate Body Position Sitting Upper Trap Body Location Left upper trap Mobilization Type Myofascial Release Sustained Pressure Trigger Point Release Intensity/Depth Moderate Body Position Sitting Manual Traction Cervical Details Manual cervical traction Body Position Supine/Sit Comments in neutral and with right lateral flexion PT-OP-R Modalities Start: 02/25/18 17:27 Freq: Status: Active Protocol: Document 02/26/18 10:45 DCW (Rec: 03/01/18 18:01 DCW [id number]) Electric Stimulation Electric Stimulation Interferential Current (IFC) Body Location Left upper trap Duration (Minutes) 10 Patient Position Hooklying Comments with Mechanical Traction Spinal Traction Traction Treatment Cervical Method Mechanical Static Patient Position Hooklying Force Applied (Pounds) 12 Duration of Treatment (Minutes) 10 Traction Treatment Comment with E-Stim PT-OP-T Assessment and Plan Start: 02/25/18 17:27 Freq: Status: Active Protocol: Document 02/26/18 10:45 DCW (Rec: 03/01/18 18:01 DCW [id number]) Physical Therapy Assessment Impairments Impairments Activity Tolerance Functional Activities Functional Mobility Gait Pain Posture ROM Soft Tissue Mobility Strength Goals Four Impairment Impaired shoulder strength Fpc Goal (LTG) Patient will increase shoulder flexors, abductors, rotators, and scapular retractors to improve posture. LTG Duration 4 wks. Three Impairment Impaired Cervical ROM in most planes of motion Chaplaincy Goal (LTG) Patient will increase cervical ROM flexion/Ext, side flexion and rotation to normal/ functional range without increase in pain. LTG Duration 4 wks Two Impairment Impaired cervical/head and shoulder posture Fpc Goal (LTG) Patient will learned and improved posture to near normal range to prevent muscular imbalance and improve symtoms. LTG Duration 6 wks One Impairment Neck disability index score of 47/50 Chaplaincy Goal (LTG) Neck dysability index score of less 30/50 LTG Duration 4 wks Assessment Summary Assessment Pt reported that his pain went from 9/10 pre-treatment to 8/ 10 with manual therapy and 7/ 10 following his e-stim and mechanical traction, noting he was feeling a bit better, but still sore enough that I think I'm going to go to the ER to see if they can do anything for the pain. Physical Therapy Plan Frequency and Duration Frequency of Treatment 2x/Week Duration of Treatment 12 Plan of Care Start Date 02/25/18 Plan of Care End Date 05/20/18 Therapeutic Interventions Therapeutic Interventions Home Exercise Program Joint Mobilizations Manual Therapy Patient/Caregiver Education Self-Care/Home Management Soft Tissue Mobilization Taping Therapeutic Exercises Modalities Cold Pack/Ice Massage Electric Stimulation Hot Packs Paraffin Bath Traction- Mechanical Ultrasound Next Visit Focus/Plan Next Note Type Treatment Note Next Visit Plan Manual therapy, mechanical traction
--- NOTE | 2018-03-01 15:29 | PT.OIE ---
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) Other and unspecified hyperlipidemia (Chronic) Lumbar back pain with radiculopathy affecting right lower extremity (Chronic) Malignant neoplasm of lumbar vertebra (Inactive) GERD (gastroesophageal reflux disease) (Chronic 12/23/10) 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) Sleep apnea, unspecified (Chronic 12/23/10) Obesity with body mass index (BMI) of 30.0 to 39.9 (Chronic 06/18/15) Uncomplicated opioid dependence (Chronic 06/18/15) Herpes (Resolved ~09/2010) Measles (Resolved ~1954) Mumps (Resolved ~1954) Past Surgical History (Last Reviewed 02/26/18 @ 19:30 by Yung Deras DO) Status post spinal surgery (Inactive ~04/2015) S/P excision of lipoma (Inactive ~2001) Anesthesia (Resolved) Provider Visit Care Team Role Provider Type Tulio Daigle MD Attending Provider Physician Family Provider Primary Care Provider Specialty: Internal Medicine Address: [address] [place] [address], [facility] Email: [email or web address] Physical Therapy Initial Evaluation PT-OP-A Visit Information Start: 02/25/18 17:27 Freq: Status: Active Protocol: Document 02/25/18 17:30 EA (Rec: 02/25/18 17:41 EA [id number]) Out-Patient Physical Therapy Visit Information Visit Information Visit Type Initial Evaluation Visit Start Time 15:15 Visit Stop Time 16:00 Total Visit Minutes 45 Visit Number 1 Evaluation Information Evaluation Date 02/25/18 PT-OP-B Current Condition Start: 02/25/18 17:27 Freq: Status: Active Protocol: Document 02/25/18 17:30 EA (Rec: 02/25/18 17:41 EA [id number]) Current Condition History of Current Condition Onset Date 04/16/18 Current Complaints Left cervical constant shooting/aching pain radiated down to arm History of Current Condition Patient reports present condition started on 02/14/18 with no known recent injury or surgery; states pain was abrupt that brought him to E.R , states had MRI with cervical disc herniation result. Patient reports pain meds, heat, cold, and massage does not help. Patient reports due to pain and ongoing cancer treatment he is unable to function independently on his ADL's; states his helps him in most except bed to the BR transfers. Patient also reports he has been most of the time in bed due pain in the neck and shoulder. Prior Treatments and Tests Ongoing chemotherapy treatment . Future Testing and Treatments Planned Unable to undergo neck surgery due to low blood count. Treatment Goals Patient/Caregiver Goals Patient wants to decrease pain and so he could sleep and rest well. Prior Functional Status Baseline Function- Other Independent in all ADL's functional transfers and mobility prior to onset of cancer which was about 2 years ago. Current Functional Impairments (Reported) Functional Limitations- ADL's Dependent. With 's help Functional Limitations- Mobility/Gait Indep only from bed to BR Functional Limitations- Work/School Retired Functional Limitations- Recreation/ Unable due to lack of energy Hobbies and strength. Functional Limitations- Other Lives with his in a single level house with ADL's dependency with the help of his except mobility from bed to BR. Uses wheelchair with outside ambulation. PT-OP-C Subjective Start: 02/25/18 17:27 Freq: Status: Active Protocol: Document 02/25/18 17:30 EA (Rec: 02/25/18 17:41 EA [id number]) OP-PT Subjective Patient Comments Patient Comments Patient c/o constant shooting/ aching pain that radiates from left cervical to left arm rated 8/10 with numbness to thumb area. Pt reports pain limits his ADL's and as well resting. Patient refused to go to E.R as my recommendation as he feels long waiting would never tolerated. Patient Reported Progress Worse Patient Questionnaires Neck Disability Index NDI Score 47 Neck Disability Index Impairment 80 to 99% Impaired (Score 40- 49) OP-PT Pain Assessment Pain Assessment Grid Paper Pain Assessment Grid Completed Yes Location Left Lower Neck Pain Location Details left cervical, arm Intensity 8 Scale Used Numeric (1 - 10) Description Aching Shooting Frequency Constant Radiating Location left shoulder and arm Pain Aggravating Factors Changing Position Pain Alleviating Factors Changing Position Patient Stated Pain Goal enough to make him rest and sleep Home Pain Medication Use Pain Medications Used Yes Pain Behaviors Pain Behaviors Facial Grimacing Guarding Moaning PT-OP-J Posture/Palpation/Skin Start: 02/25/18 17:27 Freq: Status: Active Protocol: Document 02/25/18 17:30 EA (Rec: 03/01/18 07:41 EA [id number]) Posture Evaluation Position Sitting Evaluation View [place], Post Head/C-Spine Posture Side Bent Left Side Bent Right Forward Head Thorax Posture Neutral Shoulder Posture (L) Rounded (R) Rounded Scapula Posture (L) Protracted (R) Protracted Palpation Assessment Location One Palpation Location Left traps, scalenes, posterior cervical, left arm Palpation Findings Muscle Guarding Tenderness Palpation Details Left arm,shoulder very senstive to palpate with no signs of acute inflammation. Grade 2 tenderness over traps and posterior neck Skin Assessment Other Assessments Skin Assessment Comments No signs of acute inflammation noted PT-OP-K Range of Motion Start: 02/25/18 17:27 Freq: Status: Active Protocol: Document 02/25/18 17:30 EA (Rec: 03/01/18 07:41 EA [id number]) Cervical Spine Range of Motion Cervical Spine Active Degrees Testing Position Sitting Flexion 25 Extension 20 Rotation Left 15 Rotation Right 55 Lateral Flexion Left 15 Lateral Flexion Right 45 ROM Limitations Pain Comments All cervical planes movement increased pain except with right side bending Shoulder Goniometric Range of Motion Shoulder Measured in Degrees Right Shoulder ROM WFL Yes Shoulder ROM Limitations Comments Left shoulder not tested due to hypersensitivity, pain and weakness PT-OP-L Special Tests Start: 02/25/18 17:27 Freq: Status: Active Protocol: Document 02/25/18 17:30 EA (Rec: 03/01/18 07:41 EA [id number]) Special Tests Cervical Spine Special Tests Other- 1 Test Results Cervical traction Comments decreased symptoms Vertebral Artery Test Results negative Comments Pain increased Other Special Tests Special Tests Cervical facets and other neural tests not performed due to severe pain PT-OP-M Strength Start: 02/25/18 17:27 Freq: Status: Active Protocol: Document 02/25/18 17:30 EA (Rec: 03/01/18 07:41 EA [id number]) Cervical Spine Strength Cervical Spine Manual Muscle Testing Comments Not tested due to moderate to severe pain but with at least 3/5 with spontaneous postural movement. Shoulder Strength Shoulder Manual Muscle Testing Left Reason Not Measured Pain Comments Not tested properly due to increased in shoulder and arm pain but with at least 3/5 except with shoulder ABD, Flexion, elevation with at least 3-/5. Elbow/Forearm Strength Elbow and Forearm Manual Muscle Testing Left Reason Not Measured Pain Wrist Strength Wrist Manual Muscle Testing Left Flexion (C7) 3+ Fair+ Comments Pain increased with most of the major muscles tested PT-OP-Q Treatments Start: 02/25/18 17:27 Freq: Status: Active Protocol: Document 02/25/18 17:30 EA (Rec: 03/01/18 07:41 EA [id number]) Self-Care/Home Management Treatment Education Patient Education Pain Management Posture Other Education Discussed importance of the posture. PT-OP-T Assessment and Plan Start: 02/25/18 17:27 Freq: Status: Active Protocol: Document 02/25/18 17:30 EA (Rec: 02/25/18 17:41 EA [id number]) Physical Therapy Assessment Rehab Potential Rehabilitation Potential Fair Evaluation Complexity Number of Personal Factors/Comorbidities 3 or More Number of Body Systems Impaired 4 or More Clinical Presentation at Evaluation Unstable Impairments Impairments Activity Tolerance Functional Activities Functional Mobility Gait Pain Posture ROM Soft Tissue Mobility Strength Other Concerns Fall Risk yes Barriers to Rehabilitation Ongoing cancer treatment and other commorbidities Goals Four Impairment Impaired shoulder strength [facility] Goal (LTG) Patient will increase shoulder flexors, abductors, rotators, and scapular retractors to improve posture. LTG Duration 4 wks. Three Impairment Impaired Cervical ROM in most planes of motion [facility] Goal (LTG) Patient will increase cervical ROM flexion/Ext, side flexion and rotation to normal/ functional range without increase in pain. LTG Duration 4 wks Two Impairment Impaired cervical/head and shoulder posture [facility] Goal (LTG) Patient will learned and improved posture to near normal range to prevent muscular imbalance and improve symtoms. LTG Duration 6 wks One Impairment Neck disability index score of 47/50 [facility] Goal (LTG) Neck dysability index score of less 30/50 LTG Duration 4 wks Assessment Summary Assessment Male 67 y/o patient presented with cervical pain radiating to left arm with referring diagnosis of cervical radiculopathy. Today patient demonstrates poor cervical posture with acute distress due to moderate to severe left cervical pain that radiates from left shoulder down to arm with tingling sensation to thumb and index finger. Vertebral artery reveals negative and positive to traction test. Other neural tests not tested due to increased in pain. Patient current symptoms and shoulder dysfunction limits his ability to functional at his highest. Patient would benefit with skilled PT to address cervical ROM limitation, L shoulder and arm weakness, decreasing pain and tenderness to cervical and arm region, and educating patient with posture and other HEP. Physical Therapy Plan Frequency and Duration Frequency of Treatment 2x/Week Duration of Treatment 12 Plan of Care Start Date 02/25/18 Plan of Care End Date 05/20/18 Therapeutic Interventions Therapeutic Interventions Home Exercise Program Joint Mobilizations Manual Therapy Patient/Caregiver Education Self-Care/Home Management Soft Tissue Mobilization Taping Therapeutic Exercises Modalities Cold Pack/Ice Massage Electric Stimulation Hot Packs Paraffin Bath Traction- Mechanical Ultrasound Other Referrals/Consults Referrals/Consults Recommended Patient to see referring physician to r/o elvin. Next Visit Focus/Plan Next Note Type Treatment Note
--- NOTE | 2018-07-01 13:19 | PT.OPDS ---
Current Diagnoses Radiculopathy, site unspecified (02/26/18) Other symptoms and signs involving the musculoskeletal system (02/26/18) Provider Visit Care Team Role Provider Type Tulio Daigle MD Attending Provider Physician Family Provider Primary Care Provider Specialty: Internal Medicine Address: [address] [place] [address], [id number] Email: [email or web address] Visit Number Visit Number 2 Discharge Summary PT-OP-B Current Condition Start: 02/25/18 17:27 Freq: Status: Active Protocol: Document 02/25/18 17:30 EA (Rec: 02/25/18 17:41 EA [id number]) Current Condition History of Current Condition Onset Date 04/16/18 Current Complaints Left cervical constant shooting/aching pain radiated down to arm History of Current Condition Patient reports present condition strated on 02/14/18 with no known recent injury or surgery; states pain was abrupt that brought him to E.R , states had MRI with cervical disc herniation result. Patient reports pain meds, heat, cold, and massage does not help. Patient reports due to pain and ongoing cancer treatment he is unable to function independently on his ADL's; states his helps him in most except bed to the BR transfers. Patient also reports he has been most of the time in bed due pain in the neck and shoulder. Prior Treatments and Tests Ongoing chemotherapy treatment . Future Testing and Treatments Planned Unable to undergo neck surgery due to low blood count. Treatment Goals Patient/Caregiver Goals Patient wants to decrease pain and so he could sleep and rest well. Prior Functional Status Baseline Function- Other Indepedent in all ADL's functional transfers and mobility prior to onset of cancer which was about 2 years ago. Current Functional Impairments (Reported) Functional Limitations- ADL's Dependent. With 's help Functional Limitations- Mobility/Gait Indep only from bed to BR Functional Limitations- Work/School Retired Functional Limitations- Recreation/ Unable due to lack of energy Hobbies and strength. Functional Limitations- Other Lives with his in a single level house with ADL's dependency with the help of his except mobility from bed to BR. Uses wheelchair with outside ambulation. PT-OP-C Subjective Start: 02/25/18 17:27 Freq: Status: Active Protocol: Document 02/14/19 13:17 EA (Rec: 07/01/18 13:19 EA [id number]) OP-PT Subjective Patient Comments Patient Comments Pt has not seen in the last 4 months and no call received for appointments scheduling. PT-OP-J Posture/Palpation/Skin Start: 02/25/18 17:27 Freq: Status: Active Protocol: Document 02/25/18 17:30 EA (Rec: 03/01/18 07:41 EA [id number]) Posture Evaluation Position Sitting Evaluation View Laterla, Post Head/C-Spine Posture Side Bent Left Side Bent Right Forward Head Thorax Posture Neutral Shoulder Posture (L) Rounded (R) Rounded Scapula Posture (L) Protracted (R) Protracted Palpation Assessment Location One Palpation Location Left traps, scalenes, posterior cervical, left arm Palpation Findings Muscle Guarding Tenderness Palpation Details Left arm,shoulder very senstive to palpate with no signs of acute inflammation. Grade 2 tenderness over traps and posterior neck Skin Assessment Other Assessments Skin Assessment Comments No signs of acute inflammation noted PT-OP-K Range of Motion Start: 02/25/18 17:27 Freq: Status: Active Protocol: Document 02/25/18 17:30 EA (Rec: 03/01/18 07:41 EA [id number]) Cervical Spine Range of Motion Cervical Spine Active Degrees Testing Position Sitting Flexion 25 Extension 20 Rotation Left 15 Rotation Right 55 Lateral Flexion Left 15 Lateral Flexion Right 45 ROM Limitations Pain Comments All cervical planes movement increased pain except with right side bending Shoulder Goniometric Range of Motion Shoulder Measured in Degrees Right Shoulder ROM WFL Yes Shoulder ROM Limitations Comments Left shoulder not tested due to hypersensitivity, pain and weakness PT-OP-L Special Tests Start: 02/25/18 17:27 Freq: Status: Active Protocol: Document 02/25/18 17:30 EA (Rec: 03/01/18 07:41 EA [id number]) Special Tests Cervical Spine Special Tests Other- 1 Test Results Cervical traction Comments decreased symptoms Vertebral Artery Test Results negative Comments Pain increased Other Special Tests Special Tests Cervical facets and other neural tests not performed due to severe pain PT-OP-M Strength Start: 02/25/18 17:27 Freq: Status: Active Protocol: Document 02/25/18 17:30 EA (Rec: 03/01/18 07:41 EA [id number]) Cervical Spine Strength Cervical Spine Manual Muscle Testing Comments Not tested due to moderate to severe pain but with at least 3/5 with spontaneous postural movement. Shoulder Strength Shoulder Manual Muscle Testing Left Reason Not Measured Pain Comments Not tested properly due to increased in shoulder and arm pain but with at least 3/5 except with shoulder ABD, Flexion, elevation with at least 3-/5. Elbow/Forearm Strength Elbow and Forearm Manual Muscle Testing Left Reason Not Measured Pain Wrist Strength Wrist Manual Muscle Testing Left Flexion (C7) 3+ Fair+ Comments Pain increased with most of the major muscles tested PT-OP-T Assessment and Plan Start: 02/25/18 17:27 Freq: Status: Active Protocol: Document 07/01/18 13:17 SLOAN (Rec: 07/01/18 13:19 EA [id number]) Physical Therapy Assessment Assessment Summary Assessment Patient is discharge due to non compliance with appointments schedule. Physical Therapy Plan Discharge Physical Therapy Discharge Reasons No Longer Attending PT
== END 2018-07-01 13:20 ==
LOC: PHYS 09:45
PROVIDERS: Family Provider Internal Medicine; PCP Internal Medicine; Visit Provider Internal Medicine
DX: R29.898 Other symptoms and signs involving the musculoskeletal system (principal); M54.10 Radiculopathy, site unspecified
CPT/HCPCS: 97014; 97140; 97163; 97535; G0283

== ENCOUNTER 2018-02-26 10:49 | Emergency (ER) | payer OTHER, SELFPAY ==
[2017-11-21 01:15] VITALS: BMI 28.7
[2018-02-26 10:52] VITALS: BP 141/92; PULSE 79; RESP 18; TEMP 36.7; O2SAT 98; BMI 29.4
[2018-02-26 11:00] VITALS: BP 147/100; PULSE 77; RESP 21; O2SAT 93
--- NOTE | 2018-02-26 11:06 | ED.NECK ---
HPI - Neck Pain/Injury General Chief Complaint: Neck Pain/Injury Stated Complaint: NECK PAIN Time Seen by Provider: 02/26/18 10:50 Source: patient and family Mode of arrival: ambulatory Limitations: no limitations History of Present Illness HPI Narrative: 67M with known history of multiple myeloma presents with severe left-sided neck pain that radiates into his left arm. He denies weakness but has some tingling in his lateral arm and severe sharp and stabbing pain. He was recently admitted to [facility] for similar symptoms and he had thorough evaluation including MRI of his entire spine which does not show any myeloma involvement. It did however show disc problems and some spinal stenosis, Neurosurgery was consulted but given his chronic pancytopenia they took little interest. He denies any new injury. Was discharged on fentanyl patches and Dilaudid Related Data Home Medications Medication Instructions Recorded Confirmed sennosides [senna] 2 tab PO HS 09/24/17 02/26/18 pomalidomide 2 mg PO DAILY 10/20/17 02/26/18 aspirin 325 mg tablet,delayed 325 mg PO DAILY 11/12/17 02/26/18 release dexamethasone 4 mg tablet See Label Instructions .ROUTE 11/12/17 02/26/18 .COMPLEX docusate sodium 100 mg capsule 100 mg PO BID tab 11/12/17 02/26/18 fludrocortisone 0.1 mg tablet 0.3 mg PO ONCE tab 11/12/17 02/26/18 hydrocortisone 10 mg tablet 10 mg PO QAM tab 11/12/17 02/26/18 magnesium L-lactate ER 84 mg 84 mg PO BID tab 11/12/17 02/26/18 tablet,extended release carfilzomib 1 dose CONTINUOUS IV INFUSION 2XW 01/04/18 02/26/18 acetaminophen 1 - 2 tab PO PRN PRN 02/26/18 02/26/18 calcium citrate-vitamin D3 2 tab PO BID 02/26/18 02/26/18 [Calcitrate-Vitamin D] cyclophosphamide See Label Instructions .ROUTE 02/26/18 02/26/18 .COMPLEX fentanyl 1 patch TRANSDERMAL Q72H 02/26/18 02/26/18 fentanyl 1 patch TRANSDERMAL Q72H 02/26/18 02/26/18 gabapentin [Neurontin] 1,200 mg PO TID 02/26/18 02/26/18 hydrocortisone 5 mg PO QNOON 02/26/18 02/26/18 hydromorphone 4 - 8 mg PO Q4H PRN MDD 24 mg 02/26/18 02/26/18 multivitamin 1 tab PO DAILY 02/26/18 02/26/18 naloxone 2 spray INTRANASAL PRN PRN 02/26/18 02/26/18 omeprazole 20 mg PO DAILY 02/26/18 02/26/18 ondansetron 8 mg PO Q8H PRN 02/26/18 02/26/18 potassium chloride [Klor-Con M20] 20 meq PO .ONCE 02/26/18 02/26/18 prochlorperazine maleate 10 mg PO Q8H PRN 02/26/18 02/26/18 valacyclovir 1,000 mg PO DAILY 02/26/18 02/26/18 Previous Rx's Medication Instructions Recorded venlafaxine 150 mg PO QDAY #90 cap 04/07/17 atorvastatin [Lipitor] 10 mg PO HS #90 tab 08/24/17 prednisone See Label Instructions .ROUTE 02/26/18 .COMPLEX #30 tab Allergies Allergy/AdvReac Type Severity Reaction Status Date / Time paroxetine [PAROXETINE] Allergy Severe SUICIDE Verified 11/12/17 15:16 THOUGHTS, REVED UP buspirone [BUSPIRONE] Allergy Mild NO Verified 11/12/17 15:16 FEELINGS, BONE carbamazepine [CARBAMAZEPINE] Allergy Mild RASH Verified 11/12/17 15:16 aripiprazole [ARIPIPRAZOLE] AdvReac Severe BLACKED Verified 02/26/18 12:18 OUT, FLAT, COULDN'T THINK lorazepam [From ATIVAN] AdvReac Severe SHAKING, Verified 11/12/17 15:16 AGITATION, CONFUSED Monoamine Oxidase Inhibitors AdvReac Severe Depression Verified 02/26/18 12:17 [MONOAMINE OXIDASE INHIBITORS] pregabalin [From LYRICA] AdvReac Unknown CONFUSION Verified 11/12/17 15:16 Review of Systems Review of Systems All systems reviewed & are unremarkable except as noted in HPI and below Constitutional Denies chills, Denies fever(s), Denies lethargy and Denies weakness Eyes Denies change in vision, Denies eye discharge, Denies irritation and Denies loss of vision ENT Ears, Nose, Mouth, and Throat: Denies change in voice, Reports neck pain and Denies sore throat Cardiovascular Denies chest pain, Denies irregular heart rhythm, Denies lightheadedness, Denies palpitations, Denies dyspnea, Denies dyspnea on exertion and Denies orthopnea Respiratory Denies cough, Denies dyspnea, Denies dyspnea on exertion and Denies wheezing Gastrointestinal Gastrointestinal: Denies abdominal pain, Denies change in bowel habits, Denies diarrhea, Denies nausea and Denies vomiting Genitourinary Denies hematuria, Denies flank pain, Denies urinary incontinence and Denies urinary urgency Musculoskeletal Reports neck pain and Reports radiating pain into limb Integumentary/Breasts Denies pruritus, Denies erythema, Denies rash and Denies wounds Neurologic Denies confusion, Denies loss of vision and Denies weakness Psychiatric Denies anxiety, Denies confusion, Denies depression, Denies homicidal ideation and Denies suicidal ideation Endocrine Denies palpitations Hematologic/Lymphatic Denies easy bruising Allergic/Immunologic Denies wheezing [facility] Medical History IgG multiple myeloma (Chronic) Postherpetic neuralgia at T3-T5 level (Chronic 06/18/15) Adrenal insufficiency (Chronic) Chronic pain syndrome (Chronic 06/18/15) Anxiety (Chronic ~2005) Depression (Chronic) Multiple myeloma not having achieved remission (Chronic 11/10/16) 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) Other and unspecified hyperlipidemia (Chronic) Lumbar back pain with radiculopathy affecting right lower extremity (Chronic) Malignant neoplasm of lumbar vertebra (Inactive) GERD (gastroesophageal reflux disease) (Chronic 12/23/10) 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) Sleep apnea, unspecified (Chronic 12/23/10) Obesity with body mass index (BMI) of 30.0 to 39.9 (Chronic 06/18/15) Uncomplicated opioid dependence (Chronic 06/18/15) Herpes (Resolved ~09/2010) Measles (Resolved ~1954) Mumps (Resolved ~1954) Surgical History Status post spinal surgery (Inactive ~04/2015) S/P excision of lipoma (Inactive ~2001) Anesthesia (Resolved) Family History Father Heart disease Mother Cancer Social History household members: spouse Smoking Status: Never smoker alcohol intake: never Exam Narrative Exam Narrative: 67M obviously in pain, clutching his neck Initial Vital Signs Initial Vital Signs: Vital Signs Temperature 98.1 F 02/26/18 10:52 Pulse Rate 79 02/26/18 10:52 Respiratory Rate 18 02/26/18 10:52 Blood Pressure 141/92 H 02/26/18 10:52 Pulse Oximetry 98 02/26/18 10:52 Const General: cooperative, well developed and acute distress Nutritional Appearance: well nourished Orientation: alert, awake, oriented x3 and not confused HENWV Head: normocephalic and atraumatic Ears: external ears normal and TM's normal bilaterally Nose: external nose normal and No nasal discharge Face and sinus: sinuses nontender, face symmetric, no sinus tenderness and No dry mucous membranes Mouth: oral mucosae normal and moist mucous membranes Teeth and gingiva: dentition normal Throat: tonsils normal and uvula midline Eyes General: appearance normal, both eyes and all related structures Eyelids: eyelids normal Conjunctivae: conjunctivae normal Sclera: sclerae normal Pupils: PERRL EOM: EOM intact bilaterally Neck Neck: normal visual inspection, No full ROM, no meningeal signs, trachea midline, No lymphadenopathy, No midline deformity and No JVD Lymphatic: No lymphedema Chest Chest: normal inspection of the chest Resp Effort & Inspection: normal respiratory effort, able to speak in complete sentences, no respiratory distress and no use of accessory muscles Auscultation: clear to auscultation bilaterally, no rales, no rhonchi and no wheezes Cardio Rate: regular rate Rhythm: regular rhythm Heart Sounds: no click, no gallops, no murmurs and no rubs Pulses: normal peripheral pulses GI Inspection: non-distended Palpation: soft, no hepatosplenomegaly, No guarding, No pulsatile mass and No tender Auscultation: normal bowel sounds Back/Spine/Pelvis Back: No CVA tenderness Cervical Spine: cervical ROM normal and No pain with cervical ROM Thoracic/Lumbar Spine: thoracic and lumbar spine normal to inspection Skin General: no rashes or lesions noted, No jaundice and No petechiae Neuro General: alert, oriented x3, gait normal and no focal motor deficits Speech: speech normal Other: GALLO has full ROM and strength, some numbness of thumb Extrem General: full ROM, no clubbing, cyanosis or edema, no pedal edema and no calf tenderness Psych Appearance: well kempt Mental Status: mental status grossly normal Attitude: cooperative Thought Content: normal and suicidality Judgment: judgment good Course Orders Ordered: ED Orders 02/26/18 11:40 Basic Metabolic Panel Stat Complete Blood Count AUTO DIFF Stat Discontinued Medications Dexamethasone (Decadron) 10 mg IV NOW ONE Stop: 02/26/18 13:27 Last Admin: 02/26/18 13:35 Dose: 10 mg Heparin Sodium (Porcine) (Heparin [place]) 500 unit IV PRN PRN PRN Reason: Flush Last Admin: 02/26/18 13:51 Dose: 500 unit Hydromorphone HCl (Dilaudid) 1 mg IV NOW ONE Stop: 02/26/18 11:10 Last Admin: 02/26/18 11:45 Dose: 1 mg Hydromorphone HCl (Dilaudid) 1 mg IV NOW ONE Stop: 02/26/18 13:30 Last Admin: 02/26/18 13:35 Dose: 1 mg Reevaluation(s) Reevaluation #1: patient feeling much better after some dilaudid Consultations Consultation #1: call to oncologist at [facility] whom states steroids are fine and safe in combo with his chemo. Consultation #2: Call to [facility] to get patient set up with neurosurgical consult which will happen next week Vital Signs - 8 hr 02/26/18 12:00 02/26/18 13:00 02/26/18 13:59 Pulse Rate 69 75 71 Respiratory Rate 14 16 Blood Pressure Blood Pressure [Right Arm] 152/98 H 155/98 H 156/99 H Pulse Oximetry 92 91 95 02/26/18 14:07 Pulse Rate 73 Respiratory Rate 18 Blood Pressure 153/99 H Blood Pressure [Right Arm] Pulse Oximetry 99 MDM - Neck Pain/Injury Lab Data Result diagrams: 02/26/18 11:40 02/26/18 11:40 Lab Results 02/26/18 02/26/18 Range/Units 11:40 11:40 WBC 4.6 (4.5-11.0) X10^3/uL RBC 3.36 L (4.5-5.9) X10^6/uL Hgb 11.3 L (13.5-17.5) g/dL Hct 33.6 L (41-53) % MCV 100.2 H (80-100) fL MCH 33.5 (26-34) PG MCHC 33.5 (30-36) % RDW 20.7 H (11.6-14.8) % Plt Count 19 L* (150-400) X10^3/uL Neut % (Auto) 65.9 (50-75) % Lymph % (Auto) 9.2 L (25-40) % [place] % (Auto) 23.5 H (3-14) % Eos % (Auto) 1.0 L (2-4) % Baso % (Auto) 0.4 (0-2) % Neut # (Auto) 3100 (1706-4378) /uL Platelet Estimate Decreased on smear RBC Morphology See below Anisocytosis 1+ H Sodium 139 (137-145) mmol/L Potassium 3.8 (3.4-5.1) mmol/L Chloride 99 (98-107) mmol/L Carbon Dioxide 34 H (22-32) mmol/L BUN 16 (9-20) mg/dL Creatinine 0.60 L (0.66-1.25) mg/dL Estimated GFR > 60.0 (>60) mL/min BUN/Creatinine Ratio 26.7 H (6-22) Glucose 123 H (80-110) mg/dL Calcium 8.8 (8.4-10.2) mg/dL Discharge Plan Departure Patient Disposition: Home Clinical Impression: Cervical radiculopathy Discharge Date/Time: 02/26/18 14:13 Interventions: ED Discharge Assessment Last Done: 02/26/18 14:07 Instructions: DI for Cervical Radiculopathy Activity Restrictions/Additional Instructions: *You have been diagnosed with [ acute cervical radiculopathy ] *What to do: *Take medications as directed *Gomez has put in an urgent referral to Neurosurgery for evaluation of your cervical radiculopathy [facility] Neurosurgery [address] [place] [address] *Follow up with your primary care provider in 2-3 days, call for an appointment. Let them know you were seen in the Emergency Department and that we ask that you be seen in follow up *Return to ER if you should have any new, worsening or concerning symptoms Prescriptions: New prednisone 10 mg tablet See Label Instructions .ROUTE .COMPLEX Qty: 30 RF: 0 No Action venlafaxine 150 MG capsule,extended release 24hr 150 mg PO QDAY Qty: 90 RF: 3 atorvastatin [Lipitor] 10 MG tablet 10 mg PO HS Qty: 90 RF: 3 fludrocortisone 0.1 mg tablet 0.3 mg PO ONCE RF: 0 aspirin 325 mg tablet,delayed release (DR/EC) 325 mg PO DAILY RF: 0 dexamethasone 4 mg tablet See Label Instructions .ROUTE .COMPLEX RF: 0 docusate sodium 100 mg capsule 100 mg PO BID RF: 0 hydrocortisone [Cortef] 10 mg tablet 10 mg PO QAM RF: 0 magnesium L-lactate 84 mg tablet extended release 84 mg PO BID RF: 0 pomalidomide 4 mg Capsule 2 mg PO DAILY RF: 0 carfilzomib 1 dose Continuous IV Infusion 2XW RF: 0 sennosides [senna] 8.6 MG tablet 2 tab PO HS RF: 0 multivitamin Tablet 1 tab PO DAILY RF: 0 hydrocortisone 5 mg Tablet 5 mg PO QNOON RF: 0 acetaminophen 325 mg Tablet 1 - 2 tab PO PRN PRN (Reason: pain) RF: 0 valacyclovir 1 gram Tablet 1,000 mg PO DAILY RF: 0 prochlorperazine maleate 10 mg Tablet 10 mg PO Q8H PRN (Reason: Nausea And Vomiting) RF: 0 ondansetron 8 mg Tablet,Disintegrating 8 mg PO Q8H PRN (Reason: Nausea And Vomiting) RF: 0 fentanyl 100 mcg/hr Patch 72 Hour 1 patch TRANSDERMAL Q72H RF: 0 hydromorphone 4 mg Tablet 4 - 8 mg PO Q4H MDD 24 mg PRN (Reason: Breakthrough Pain) RF: 0 fentanyl 12 mcg/hr Patch 72 Hour 1 patch TRANSDERMAL Q72H RF: 0 calcium citrate-vitamin D3 [Calcitrate-Vitamin D] 315-250 mg-unit Tablet 2 tab PO BID RF: 0 cyclophosphamide 50 mg Capsule See Label Instructions .ROUTE .COMPLEX RF: 0 naloxone 4 mg/actuation [place],Non-Aerosol 2 spray INTRANASAL PRN PRN (Reason: oversedation) RF: 0 gabapentin [Neurontin] 400 mg capsule 1,200 mg PO TID RF: 0 potassium chloride [Klor-Con M20] 20 MEQ tablet,ER particles/crystals 20 meq PO .ONCE RF: 0 omeprazole 20 MG capsule,delayed release(DR/EC) 20 mg PO DAILY RF: 0 Referrals: Tulio Daigle MD [Primary Care Provider] -
[2018-02-26] MEDS: HYDROMORPHONE 1 MG INJ IV ×2 (11:45→13:35)
[2018-02-26 11:48] LABS: Basophils Percent Auto 0.4 % (0-2); Hematocrit 33.6 % (41-53); Hemoglobin 11.3 g/dL (13.5-17.5); Lymphocytes Percent Auto 9.2 % (25-40); Mean Corpuscular HGB Conc 33.5 % (30-36); Mean Corpuscular Hemoglobin 33.5 PG (26-34); Mean Corpuscular Volume 100.2 fL (80-100); Monocytes Percent Auto 23.5 % (3-14); Neutrophils Absolute Auto 3100 /uL (3000-5900); Neutrophils Percent Auto 65.9 % (50-75); Red Blood Cell Count 3.36 X10^6/uL (4.5-5.9); Red Cell Distribution Width 20.7 % (11.6-14.8); White Blood Cell Count 4.6 X10^3/uL (4.5-11.0)
[2018-02-26 11:57] LABS: Add Manual Diff / Slide Review SLIDE REVIEW
[2018-02-26 11:58] LABS: Platelet Count 19 X10^3/uL (150-400)
[2018-02-26 12:00] VITALS: BP 152/98; PULSE 69; RESP 14; O2SAT 92
[2018-02-26 12:22] LABS: Anisocytosis 1+
[2018-02-26 12:23] LABS: Platelet Estimate Decreased on smear
[2018-02-26 13:00] VITALS: BP 155/98; PULSE 75; O2SAT 91
[2018-02-26 13:03] LABS: BUN Creatinine Ratio 26.7 (6-22); Blood Urea Nitrogen 16 mg/dL (9-20); Calcium 8.8 mg/dL (8.4-10.2); Carbon Dioxide 34 mmol/L (22-32); Chloride 99 mmol/L (98-107); Estimated Glomerular Filt Rate > 60.0 mL/min (>60); Glucose 123 mg/dL (80-110); HEMOLYSIS < 15 (0-50); Potassium 3.8 mmol/L (3.4-5.1); Sodium 139 mmol/L (137-145)
[2018-02-26] MEDS: DEXAMETHASONE 10 MG/ML VIAL IV (13:35)
[2018-02-26 13:59] VITALS: BP 156/99; PULSE 71; RESP 16; O2SAT 95
[2018-02-26 14:07] VITALS: BP 153/99; PULSE 73; RESP 18; O2SAT 99
--- NOTE | 2018-02-26 18:21 | ED_ITS ---
HPI - Neck Pain/Injury General Chief Complaint: Neck Pain/Injury Stated Complaint: NECK PAIN Time Seen by Provider: 02/26/18 10:50 Source: patient and family Mode of arrival: ambulatory Limitations: no limitations History of Present Illness HPI Narrative: 67M with known history of multiple myeloma presents with severe left-sided neck pain that radiates into his left arm. He denies weakness but has some tingling in his lateral arm and severe sharp and stabbing pain. He was recently admitted to [facility] for similar symptoms and he had thorough evaluation including MRI of his entire spine which does not show any myeloma involvement. It did however show disc problems and some spinal stenosis, Neurosurgery was consulted but given his chronic pancytopenia they took little interest. He denies any new injury. Was discharged on fentanyl patches and Dilaudid Related Data Home Medications Medication Instructions Recorded Confirmed sennosides [senna] 2 tab PO HS 09/24/17 02/26/18 pomalidomide 2 mg PO DAILY 10/20/17 02/26/18 aspirin 325 mg tablet,delayed 325 mg PO DAILY 11/12/17 02/26/18 release dexamethasone 4 mg tablet See Label Instructions .ROUTE 11/12/17 02/26/18 .COMPLEX docusate sodium 100 mg capsule 100 mg PO BID tab 11/12/17 02/26/18 fludrocortisone 0.1 mg tablet 0.3 mg PO ONCE tab 11/12/17 02/26/18 hydrocortisone 10 mg tablet 10 mg PO QAM tab 11/12/17 02/26/18 magnesium L-lactate ER 84 mg 84 mg PO BID tab 11/12/17 02/26/18 tablet,extended release carfilzomib 1 dose CONTINUOUS IV INFUSION 2XW 01/04/18 02/26/18 acetaminophen 1 - 2 tab PO PRN PRN 02/26/18 02/26/18 calcium citrate-vitamin D3 2 tab PO BID 02/26/18 02/26/18 [Calcitrate-Vitamin D] cyclophosphamide See Label Instructions .ROUTE 02/26/18 02/26/18 .COMPLEX fentanyl 1 patch TRANSDERMAL Q72H 02/26/18 02/26/18 fentanyl 1 patch TRANSDERMAL Q72H 02/26/18 02/26/18 gabapentin [Neurontin] 1,200 mg PO TID 02/26/18 02/26/18 hydrocortisone 5 mg PO QNOON 02/26/18 02/26/18 hydromorphone 4 - 8 mg PO Q4H PRN MDD 24 mg 02/26/18 02/26/18 multivitamin 1 tab PO DAILY 02/26/18 02/26/18 naloxone 2 spray INTRANASAL PRN PRN 02/26/18 02/26/18 omeprazole 20 mg PO DAILY 02/26/18 02/26/18 ondansetron 8 mg PO Q8H PRN 02/26/18 02/26/18 potassium chloride [Klor-Con M20] 20 meq PO .ONCE 02/26/18 02/26/18 prochlorperazine maleate 10 mg PO Q8H PRN 02/26/18 02/26/18 valacyclovir 1,000 mg PO DAILY 02/26/18 02/26/18 Previous Rx's Medication Instructions Recorded venlafaxine 150 mg PO QDAY #90 cap 04/07/17 atorvastatin [Lipitor] 10 mg PO HS #90 tab 08/24/17 prednisone See Label Instructions .ROUTE 02/26/18 .COMPLEX #30 tab Allergies Allergy/AdvReac Type Severity Reaction Status Date / Time paroxetine [PAROXETINE] Allergy Severe SUICIDE Verified 11/12/17 15:16 THOUGHTS, REVED UP buspirone [BUSPIRONE] Allergy Mild NO Verified 11/12/17 15:16 FEELINGS, BONE carbamazepine [CARBAMAZEPINE] Allergy Mild RASH Verified 11/12/17 15:16 aripiprazole [ARIPIPRAZOLE] AdvReac Severe BLACKED Verified 02/26/18 12:18 OUT, FLAT, COULDN'T THINK lorazepam [From ATIVAN] AdvReac Severe SHAKING, Verified 11/12/17 15:16 AGITATION, CONFUSED Monoamine Oxidase Inhibitors AdvReac Severe Depression Verified 02/26/18 12:17 [MONOAMINE OXIDASE INHIBITORS] pregabalin [From LYRICA] AdvReac Unknown CONFUSION Verified 11/12/17 15:16 Review of Systems Review of Systems All systems reviewed & are unremarkable except as noted in HPI and below Constitutional Denies chills, Denies fever(s), Denies lethargy and Denies weakness Eyes Denies change in vision, Denies eye discharge, Denies irritation and Denies loss of vision ENT Ears, Nose, Mouth, and Throat: Denies change in voice, Reports neck pain and Denies sore throat Cardiovascular Denies chest pain, Denies irregular heart rhythm, Denies lightheadedness, Denies palpitations, Denies dyspnea, Denies dyspnea on exertion and Denies orthopnea Respiratory Denies cough, Denies dyspnea, Denies dyspnea on exertion and Denies wheezing Gastrointestinal Gastrointestinal: Denies abdominal pain, Denies change in bowel habits, Denies diarrhea, Denies nausea and Denies vomiting Genitourinary Denies hematuria, Denies flank pain, Denies urinary incontinence and Denies urinary urgency Musculoskeletal Reports neck pain and Reports radiating pain into limb Integumentary/Breasts Denies pruritus, Denies erythema, Denies rash and Denies wounds Neurologic Denies confusion, Denies loss of vision and Denies weakness Psychiatric Denies anxiety, Denies confusion, Denies depression, Denies homicidal ideation and Denies suicidal ideation Endocrine Denies palpitations Hematologic/Lymphatic Denies easy bruising Allergic/Immunologic Denies wheezing [facility] Medical History IgG multiple myeloma (Chronic) Postherpetic neuralgia at T3-T5 level (Chronic 06/18/15) Adrenal insufficiency (Chronic) Chronic pain syndrome (Chronic 06/18/15) Anxiety (Chronic ~2005) Depression (Chronic) Multiple myeloma not having achieved remission (Chronic 11/10/16) 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) Other and unspecified hyperlipidemia (Chronic) Lumbar back pain with radiculopathy affecting right lower extremity (Chronic) Malignant neoplasm of lumbar vertebra (Inactive) GERD (gastroesophageal reflux disease) (Chronic 12/23/10) 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 ) Sleep apnea, unspecified (Chronic 12/23/10) Obesity with body mass index (BMI) of 30.0 to 39.9 (Chronic 06/18/15) Uncomplicated opioid dependence (Chronic 06/18/15) Herpes (Resolved ~09/2010) Measles (Resolved ~1954) Mumps (Resolved ~1954) Surgical History Status post spinal surgery (Inactive ~04/2015) S/P excision of lipoma (Inactive ~2001) Anesthesia (Resolved) Family History Father Heart disease Mother Cancer Social History household members: spouse Smoking Status: Never smoker alcohol intake: never Exam Narrative Exam Narrative: 67M obviously in pain, clutching his neck Initial Vital Signs Initial Vital Signs: Vital Signs Temperature 98.1 F 02/26/18 10:52 Pulse Rate 79 02/26/18 10:52 Respiratory Rate 18 02/26/18 10:52 Blood Pressure 141/92 H 02/26/18 10:52 Pulse Oximetry 98 02/26/18 10:52 Const General: cooperative, well developed and acute distress Nutritional Appearance: well nourished Orientation: alert, awake, oriented x3 and not confused HENMO Head: normocephalic and atraumatic Ears: external ears normal and TM's normal bilaterally Nose: external nose normal and No nasal discharge Face and sinus: sinuses nontender, face symmetric, no sinus tenderness and No dry mucous membranes Mouth: oral mucosae normal and moist mucous membranes Teeth and gingiva: dentition normal Throat: tonsils normal and uvula midline Eyes General: appearance normal, both eyes and all related structures Eyelids: eyelids normal Conjunctivae: conjunctivae normal Sclera: sclerae normal Pupils: PERRL EOM: EOM intact bilaterally Neck Neck: normal visual inspection, No full ROM, no meningeal signs, trachea midline , No lymphadenopathy, No midline deformity and No JVD Lymphatic: No lymphedema Chest Chest: normal inspection of the chest Resp Effort & Inspection: normal respiratory effort, able to speak in complete sentences, no respiratory distress and no use of accessory muscles Auscultation: clear to auscultation bilaterally, no rales, no rhonchi and no wheezes Cardio Rate: regular rate Rhythm: regular rhythm Heart Sounds: no click, no gallops, no murmurs and no rubs Pulses: normal peripheral pulses GI Inspection: non-distended Palpation: soft, no hepatosplenomegaly, No guarding, No pulsatile mass and No tender Auscultation: normal bowel sounds Back/Spine/Pelvis Back: No CVA tenderness Cervical Spine: cervical ROM normal and No pain with cervical ROM Thoracic/Lumbar Spine: thoracic and lumbar spine normal to inspection Skin General: no rashes or lesions noted, No jaundice and No petechiae Neuro General: alert, oriented x3, gait normal and no focal motor deficits Speech: speech normal Other: GALLO has full ROM and strength, some numbness of thumb Extrem General: full ROM, no clubbing, cyanosis or edema, no pedal edema and no calf tenderness Psych Appearance: well kempt Mental Status: mental status grossly normal Attitude: cooperative Thought Content: normal and suicidality Judgment: judgment good Course Orders Ordered: ED Orders 02/26/18 11:40 Basic Metabolic Panel Stat Complete Blood Count AUTO DIFF Stat Discontinued Medications Dexamethasone (Decadron) 10 mg IV NOW ONE Stop: 02/26/18 13:27 Last Admin: 02/26/18 13:35 Dose: 10 mg Heparin Sodium (Porcine) (Heparin [place]) 500 unit IV PRN PRN PRN Reason: Flush Last Admin: 02/26/18 13:51 Dose: 500 unit Hydromorphone HCl (Dilaudid) 1 mg IV NOW ONE Stop: 02/26/18 11:10 Last Admin: 02/26/18 11:45 Dose: 1 mg Hydromorphone HCl (Dilaudid) 1 mg IV NOW ONE Stop: 02/26/18 13:30 Last Admin: 02/26/18 13:35 Dose: 1 mg Reevaluation(s) Reevaluation #1: patient feeling much better after some dilaudid Consultations Consultation #1: call to oncologist at [facility] whom states steroids are fine and safe in combo with his chemo. Consultation #2: Call to [facility] to get patient set up with neurosurgical consult which will happen next week Vital Signs - 8 hr 02/26/18 12:00 02/26/18 13:00 02/26/18 13:59 Pulse Rate 69 75 71 Respiratory Rate 14 16 Blood Pressure Blood Pressure [Right Arm] 152/98 H 155/98 H 156/99 H Pulse Oximetry 92 91 95 02/26/18 14:07 Pulse Rate 73 Respiratory Rate 18 Blood Pressure 153/99 H Blood Pressure [Right Arm] Pulse Oximetry 99 MDM - Neck Pain/Injury Lab Data Result diagrams: 02/26/18 11:40 02/26/18 11:40 Lab Results 02/26/18 02/26/18 Range/Units 11:40 11:40 WBC 4.6 (4.5-11.0) X10^3/uL RBC 3.36 L (4.5-5.9) X10^6/uL Hgb 11.3 L (13.5-17.5) g/dL Hct 33.6 L (41-53) % MCV 100.2 H (80-100) fL MCH 33.5 (26-34) PG MCHC 33.5 (30-36) % RDW 20.7 H (11.6-14.8) % Plt Count 19 L* (150-400) X10^3/uL Neut % (Auto) 65.9 (50-75) % Lymph % (Auto) 9.2 L (25-40) % [place] % (Auto) 23.5 H (3-14) % Eos % (Auto) 1.0 L (2-4) % Baso % (Auto) 0.4 (0-2) % Neut # (Auto) 3100 (7441-4560) /uL Platelet Estimate Decreased on smear RBC Morphology See below Anisocytosis 1+ H Sodium 139 (137-145) mmol/L Potassium 3.8 (3.4-5.1) mmol/L Chloride 99 (98-107) mmol/L Carbon Dioxide 34 H (22-32) mmol/L BUN 16 (9-20) mg/dL Creatinine 0.60 L (0.66-1.25) mg/dL Estimated GFR > 60.0 (>60) mL/min BUN/Creatinine Ratio 26.7 H (6-22) Glucose 123 H (80-110) mg/dL Calcium 8.8 (8.4-10.2) mg/dL Discharge Plan Departure Patient Disposition: Home Clinical Impression: Cervical radiculopathy Discharge Date/Time: 02/26/18 14:13 Interventions: ED Discharge Assessment Last Done: 02/26/18 14:07 Instructions: DI for Cervical Radiculopathy Activity Restrictions/Additional Instructions: *You have been diagnosed with [ acute cervical radiculopathy ] *What to do: *Take medications as directed *Gomez has put in an urgent referral to Neurosurgery for evaluation of your cervical radiculopathy [facility] [address] [place] [address] *Follow up with your primary care provider in 2-3 days, call for an appointment. Let them know you were seen in the Emergency Department and that we ask that you be seen in follow up *Return to ER if you should have any new, worsening or concerning symptoms Prescriptions: New prednisone 10 mg tablet See Label Instructions .ROUTE .COMPLEX Qty: 30 RF: 0 No Action venlafaxine 150 MG capsule,extended release 24hr 150 mg PO QDAY Qty: 90 RF: 3 atorvastatin [Lipitor] 10 MG tablet 10 mg PO HS Qty: 90 RF: 3 fludrocortisone 0.1 mg tablet 0.3 mg PO ONCE RF: 0 aspirin 325 mg tablet,delayed release (DR/EC) 325 mg PO DAILY RF: 0 dexamethasone 4 mg tablet See Label Instructions .ROUTE .COMPLEX RF: 0 docusate sodium 100 mg capsule 100 mg PO BID RF: 0 hydrocortisone [Cortef] 10 mg tablet 10 mg PO QAM RF: 0 magnesium L-lactate 84 mg tablet extended release 84 mg PO BID RF: 0 pomalidomide 4 mg Capsule 2 mg PO DAILY RF: 0 carfilzomib 1 dose Continuous IV Infusion 2XW RF: 0 sennosides [senna] 8.6 MG tablet 2 tab PO HS RF: 0 multivitamin Tablet 1 tab PO DAILY RF: 0 hydrocortisone 5 mg Tablet 5 mg PO QNOON RF: 0 acetaminophen 325 mg Tablet 1 - 2 tab PO PRN PRN (Reason: pain) RF: 0 valacyclovir 1 gram Tablet 1,000 mg PO DAILY RF: 0 prochlorperazine maleate 10 mg Tablet 10 mg PO Q8H PRN (Reason: Nausea And Vomiting) RF: 0 ondansetron 8 mg Tablet,Disintegrating 8 mg PO Q8H PRN (Reason: Nausea And Vomiting) RF: 0 fentanyl 100 mcg/hr Patch 72 Hour 1 patch TRANSDERMAL Q72H RF: 0 hydromorphone 4 mg Tablet 4 - 8 mg PO Q4H MDD 24 mg PRN (Reason: Breakthrough Pain) RF: 0 fentanyl 12 mcg/hr Patch 72 Hour 1 patch TRANSDERMAL Q72H RF: 0 calcium citrate-vitamin D3 [Calcitrate-Vitamin D] 315-250 mg-unit Tablet 2 tab PO BID RF: 0 cyclophosphamide 50 mg Capsule See Label Instructions .ROUTE .COMPLEX RF: 0 naloxone 4 mg/actuation [place],Non-Aerosol 2 spray INTRANASAL PRN PRN (Reason: oversedation) RF: 0 gabapentin [Neurontin] 400 mg capsule 1,200 mg PO TID RF: 0 potassium chloride [Klor-Con M20] 20 MEQ tablet,ER particles/crystals 20 meq PO .ONCE RF: 0 omeprazole 20 MG capsule,delayed release(DR/EC) 20 mg PO DAILY RF: 0 Referrals: Tulio Daigle MD [Primary Care Provider] -
== END 2018-02-26 14:13 | disposition home or self-care (01) ==
PROVIDERS: Emergency Provider Emergency Medicine; Family Provider Internal Medicine; PCP Internal Medicine
DX: M54.12 Radiculopathy, cervical region (principal)
CPT/HCPCS: 36591; 80048; 85025; 96374; 96375; 96376; 99283; 99284; J1100; J1170; J1642

== ENCOUNTER 2018-02-28 21:31 | Emergency (ER) | payer OTHER, SELFPAY ==
[2017-11-21 01:15] VITALS: BMI 28.7
[2018-02-28 21:50] VITALS: BP 192/126; PULSE 91; RESP 18; TEMP 36.6; O2SAT 95
--- NOTE | 2018-02-28 22:14 | ED_ITS ---
HPI - Back Pain/Injury General Chief Complaint: Back Pain/Injury Stated Complaint: states he has a buldging disk and it hurts Time Seen by Provider: 02/28/18 21:42 Source: patient, family and old records reviewed Mode of arrival: ambulatory History of Present Illness HPI Narrative: Patient is a 67-year-old male presenting with neck and back pain. He has a history of multiple myeloma, herpetic neuralgia and spinal stenosis. He was admitted at [facility] last week for the same. His fentanyl patch was increased and he was given Dilaudid. He was seen and evaluated here on the for increased pain given Dilaudid and dexamethasone. He says he continues to have pain it was getting better but today the pain is out of control he has had 40 mg of Dilaudid today his typical doses 24 mg. He cannot get comfortable. He has not had any fever or chills. It is mostly on his left arm radiating down his thumb and index finger. He has a appointment was neuro surgery next week however due to his thrombocytopenia is not a great surgical candidate. MD Complaint: back pain Related Data Home Medications Medication Instructions Recorded Confirmed sennosides [senna] 2 tab PO HS 09/24/17 02/26/18 pomalidomide 2 mg PO DAILY 10/20/17 02/26/18 aspirin 325 mg tablet,delayed 325 mg PO DAILY 11/12/17 02/26/18 release dexamethasone 4 mg tablet See Label Instructions .ROUTE 11/12/17 02/26/18 .COMPLEX docusate sodium 100 mg capsule 100 mg PO BID tab 11/12/17 02/26/18 fludrocortisone 0.1 mg tablet 0.3 mg PO ONCE tab 11/12/17 02/26/18 hydrocortisone 10 mg tablet 10 mg PO QAM tab 11/12/17 02/26/18 magnesium L-lactate ER 84 mg 84 mg PO BID tab 11/12/17 02/26/18 tablet,extended release carfilzomib 1 dose CONTINUOUS IV INFUSION 2XW 01/04/18 02/26/18 acetaminophen 1 - 2 tab PO PRN PRN 02/26/18 02/26/18 calcium citrate-vitamin D3 2 tab PO BID 02/26/18 02/26/18 [Calcitrate-Vitamin D] cyclophosphamide See Label Instructions .ROUTE 02/26/18 02/26/18 .COMPLEX fentanyl 1 patch TRANSDERMAL Q72H 02/26/18 02/26/18 fentanyl 1 patch TRANSDERMAL Q72H 02/26/18 02/26/18 gabapentin [Neurontin] 1,200 mg PO TID 02/26/18 02/26/18 hydrocortisone 5 mg PO QNOON 02/26/18 02/26/18 hydromorphone 4 - 8 mg PO Q4H PRN MDD 24 mg 02/26/18 02/26/18 multivitamin 1 tab PO DAILY 02/26/18 02/26/18 naloxone 2 spray INTRANASAL PRN PRN 02/26/18 02/26/18 omeprazole 20 mg PO DAILY 02/26/18 02/26/18 ondansetron 8 mg PO Q8H PRN 02/26/18 02/26/18 potassium chloride [Klor-Con M20] 20 meq PO .ONCE 02/26/18 02/26/18 prochlorperazine maleate 10 mg PO Q8H PRN 02/26/18 02/26/18 valacyclovir 1,000 mg PO DAILY 02/26/18 02/26/18 Previous Rx's Medication Instructions Recorded venlafaxine 150 mg PO QDAY #90 cap 04/07/17 atorvastatin [Lipitor] 10 mg PO HS #90 tab 08/24/17 prednisone See Label Instructions .ROUTE 02/26/18 .COMPLEX #30 tab Allergies Allergy/AdvReac Type Severity Reaction Status Date / Time paroxetine [PAROXETINE] Allergy Severe SUICIDE Verified 11/12/17 15:16 THOUGHTS, REVED UP buspirone [BUSPIRONE] Allergy Mild NO Verified 11/12/17 15:16 FEELINGS, BONE carbamazepine [CARBAMAZEPINE] Allergy Mild RASH Verified 11/12/17 15:16 aripiprazole [ARIPIPRAZOLE] AdvReac Severe BLACKED Verified 02/26/18 12:18 OUT, FLAT, COULDN'T THINK lorazepam [From ATIVAN] AdvReac Severe SHAKING, Verified 11/12/17 15:16 AGITATION, CONFUSED Monoamine Oxidase Inhibitors AdvReac Severe Depression Verified 02/26/18 12:17 [MONOAMINE OXIDASE INHIBITORS] pregabalin [From LYRICA] AdvReac Unknown CONFUSION Verified 11/12/17 15:16 Review of Systems Review of Systems All systems reviewed & are unremarkable except as noted in HPI and below Constitutional Denies chills, Denies fever(s), Denies lethargy and Denies weakness Eyes Denies change in vision, Denies eye discharge, Denies irritation and Denies loss of vision ENT Ears, Nose, Mouth, and Throat: Denies change in voice, Reports neck pain and Denies sore throat Cardiovascular Reports chest pain (Herpetic neuralgia comes around to the left side as well this remains unchanged today), Denies irregular heart rhythm, Denies lightheadedness, Denies palpitations, Denies dyspnea, Denies dyspnea on exertion and Denies orthopnea Respiratory Denies cough, Denies dyspnea, Denies dyspnea on exertion and Denies wheezing Gastrointestinal Gastrointestinal: Denies abdominal pain, Denies change in bowel habits, Denies diarrhea, Denies nausea and Denies vomiting Genitourinary Denies hematuria, Denies flank pain, Denies urinary incontinence and Denies urinary urgency Musculoskeletal Reports as per HPI, Reports neck pain and Reports numbness Integumentary/Breasts Denies pruritus, Denies erythema, Denies rash and Denies wounds Neurologic Denies confusion, Denies loss of vision, Reports numbness and Denies weakness Psychiatric Denies anxiety, Denies confusion, Denies depression, Denies homicidal ideation and Denies suicidal ideation Endocrine Denies palpitations Allergic/Immunologic Denies wheezing [facility] Social History household members: spouse Smoking Status: Never smoker alcohol intake: never Exam Initial Vital Signs Initial Vital Signs: Vital Signs Temperature 97.8 F 02/28/18 21:50 Pulse Rate 91 H 02/28/18 21:50 Respiratory Rate 18 02/28/18 21:50 Blood Pressure 192/126 H 02/28/18 21:50 Pulse Oximetry 95 02/28/18 21:50 Const General: cooperative and in distress (In pain) Nutritional Appearance: average body habitus [facility] Head: normal to inspection and normocephalic Ears: hearing grossly normal bilaterally Eyes General: appearance normal, both eyes and all related structures Neck Neck: normal visual inspection Chest Chest: normal inspection of the chest Resp Effort & Inspection: normal respiratory effort Auscultation: clear to auscultation bilaterally and no rhonchi Cardio Rate: regular rate Rhythm: regular rhythm Heart Sounds: S1 normal and S2 normal Back/Spine/Pelvis Cervical Spine: collar present (Soft), cervical muscular tenderness and pain with cervical ROM Neuro General: alert, awake and oriented x3 Cognition: normal cognition Speech: speech normal Course Orders Ordered: ED Orders 02/28/18 22:39 Basic Metabolic Panel Stat Complete Blood Count AUTO DIFF Stat Discontinued Medications Acetaminophen (Tylenol) 650 mg PO NOW ONE Stop: 03/01/18 04:27 Last Admin: 03/01/18 04:28 Dose: 650 mg Gabapentin (Neurontin) 1,200 mg PO NOW ONE Stop: 03/01/18 01:26 Last Admin: 03/01/18 01:51 Dose: 1,200 mg Hydromorphone HCl (Dilaudid) 1 mg IV NOW ONE Stop: 02/28/18 22:06 Last Admin: 02/28/18 22:42 Dose: 1 mg Hydromorphone HCl (Dilaudid) 1 mg IV NOW ONE Stop: 02/28/18 23:28 Last Admin: 02/28/18 23:45 Dose: 1 mg Hydromorphone HCl (Dilaudid) 2 mg IV NOW ONE Stop: 03/01/18 00:24 Last Admin: 03/01/18 00:36 Dose: 2 mg Ketamine HCl (Ketalar) 15 mg IV NOW ONE Stop: 03/01/18 02:08 Last Admin: 03/01/18 02:29 Dose: 15 mg Lorazepam (Ativan) 0.5 mg IV NOW ONE Stop: 03/01/18 01:54 Last Admin: 03/01/18 02:36 Dose: Not Given Vital Signs - 8 hr 03/01/18 00:27 03/01/18 02:36 03/01/18 04:30 Temperature Pulse Rate 78 74 76 Respiratory Rate 22 22 18 Blood Pressure [Right Arm] 174/104 H 170/106 H 158/101 H Pulse Oximetry 93 100 96 03/01/18 05:00 Temperature 98.8 F Pulse Rate 76 Respiratory Rate 15 Blood Pressure [Right Arm] 126/87 Pulse Oximetry 95 MDM - Back Pain/Injury Lab Data Attestation: I reviewed the patient's lab results. Result diagrams: 02/28/18 22:39 02/28/18 22:39 Lab Results 02/28/18 02/28/18 Range/Units 22:39 22:39 WBC 3.4 L (4.5-11.0) X10^3/uL RBC 3.21 L (4.5-5.9) X10^6/uL Hgb 11.0 L (13.5-17.5) g/dL Hct 32.3 L (41-53) % MCV 100.4 H (80-100) fL MCH 34.1 H (26-34) PG MCHC 33.9 (30-36) % RDW 21.4 H (11.6-14.8) % Plt Count 35 L* (150-400) X10^3/uL Neut % (Auto) Not Reportable Lymph % (Auto) Not Reportable [place] % (Auto) Not Reportable Eos % (Auto) Not Reportable Baso % (Auto) Not Reportable Seg Neutrophils % 50.0 (38-70) % Band Neutrophils % 3.0 (3-7) % Lymphocytes % (Manual) 22.0 L (25-45) % Atypical Lymphs % 7.0 H ( - 0) % Monocytes % (Manual) 18.0 H (2-11) % Differential Comment See below Platelet Estimate Decreased on smear RBC Morphology See below Polychromasia 1+ H Anisocytosis 3+ H D Macrocytosis 1+ H Schistocytes 1+ H Sodium 140 (137-145) mmol/L Potassium 4.0 (3.4-5.1) mmol/L Chloride 100 (98-107) mmol/L Carbon Dioxide 32 (22-32) mmol/L BUN 21 H (9-20) mg/dL Creatinine 0.70 (0.66-1.25) mg/dL Estimated GFR > 60.0 (>60) mL/min BUN/Creatinine Ratio 30.0 H (6-22) Glucose 132 H (80-110) mg/dL Calcium 9.0 (8.4-10.2) mg/dL MDM Narrative Medical decision making narrative: Patient is in significant amount of pain mostly in his left arm and. This seems to be his continuous radiculopathy of C6 and C7. He does not respond well to Dilaudid he has been given multiple doses is minimally controlled. Offered Ativan, he says that has the opposite effect causing him to be more agitated, he does not want that. I have given him ketamine which does seem to help. He also wanted his nightly dose of gabapentin. His pain continues to be out of control. I called [facility] updated him on the situation. Patient's pain is not controlled. I have reviewed records from [facility] she had an MRI of his neck on the February 20. At this time I do not think there is any need for further imaging. As he has multiple reasons to have pain this seems to be neuropathic pain. Patient is transferred to [facility] her [facility] doctor Mariella is the accepting physician 730AM Patient still having pain, 2nd dose of ketamine is given Discharge Plan Departure Patient Disposition: [facility] Clinical Impression: Cervical radiculopathy at C6, Intractable neuropathic pain of upper extremity Prescriptions: No Action venlafaxine 150 MG capsule,extended release 24hr 150 mg PO QDAY Qty: 90 RF: 3 atorvastatin [Lipitor] 10 MG tablet 10 mg PO HS Qty: 90 RF: 3 fludrocortisone 0.1 mg tablet 0.3 mg PO ONCE RF: 0 aspirin 325 mg tablet,delayed release (DR/EC) 325 mg PO DAILY RF: 0 dexamethasone 4 mg tablet See Label Instructions .ROUTE .COMPLEX RF: 0 docusate sodium 100 mg capsule 100 mg PO BID RF: 0 hydrocortisone [Cortef] 10 mg tablet 10 mg PO QAM RF: 0 magnesium L-lactate 84 mg tablet extended release 84 mg PO BID RF: 0 pomalidomide 4 mg Capsule 2 mg PO DAILY RF: 0 carfilzomib 1 dose Continuous IV Infusion 2XW RF: 0 sennosides [senna] 8.6 MG tablet 2 tab PO HS RF: 0 multivitamin Tablet 1 tab PO DAILY RF: 0 hydrocortisone 5 mg Tablet 5 mg PO QNOON RF: 0 acetaminophen 325 mg Tablet 1 - 2 tab PO PRN PRN (Reason: pain) RF: 0 valacyclovir 1 gram Tablet 1,000 mg PO DAILY RF: 0 prochlorperazine maleate 10 mg Tablet 10 mg PO Q8H PRN (Reason: Nausea And Vomiting) RF: 0 ondansetron 8 mg Tablet,Disintegrating 8 mg PO Q8H PRN (Reason: Nausea And Vomiting) RF: 0 fentanyl 100 mcg/hr Patch 72 Hour 1 patch TRANSDERMAL Q72H RF: 0 hydromorphone 4 mg Tablet 4 - 8 mg PO Q4H MDD 24 mg PRN (Reason: Breakthrough Pain) RF: 0 fentanyl 12 mcg/hr Patch 72 Hour 1 patch TRANSDERMAL Q72H RF: 0 calcium citrate-vitamin D3 [Calcitrate-Vitamin D] 315-250 mg-unit Tablet 2 tab PO BID RF: 0 cyclophosphamide 50 mg Capsule See Label Instructions .ROUTE .COMPLEX RF: 0 naloxone 4 mg/actuation [place],Non-Aerosol 2 spray INTRANASAL PRN PRN (Reason: oversedation) RF: 0 gabapentin [Neurontin] 400 mg capsule 1,200 mg PO TID RF: 0 potassium chloride [Klor-Con M20] 20 MEQ tablet,ER particles/crystals 20 meq PO .ONCE RF: 0 omeprazole 20 MG capsule,delayed release(DR/EC) 20 mg PO DAILY RF: 0 prednisone 10 mg tablet See Label Instructions .ROUTE .COMPLEX Qty: 30 RF: 0
[2018-02-28] MEDS: HYDROMORPHONE 2 MG INJ 1 MG IV ×2 (22:42→23:45)
[2018-02-28 22:47] LABS: Hematocrit 32.3 % (41-53); Mean Corpuscular HGB Conc 33.9 % (30-36); Mean Corpuscular Hemoglobin 34.1 PG (26-34); Mean Corpuscular Volume 100.4 fL (80-100); Red Blood Cell Count 3.21 X10^6/uL (4.5-5.9); Red Cell Distribution Width 21.4 % (11.6-14.8); White Blood Cell Count 3.4 X10^3/uL (4.5-11.0)
[2018-02-28 22:53] LABS: Blood Urea Nitrogen 21 mg/dL (9-20); Carbon Dioxide 32 mmol/L (22-32); Chloride 100 mmol/L (98-107); Estimated Glomerular Filt Rate > 60.0 mL/min (>60); Glucose 132 mg/dL (80-110); HEMOLYSIS < 15 (0-50); Sodium 140 mmol/L (137-145)
[2018-02-28 23:00] LABS: Add Manual Diff / Slide Review YES; Platelet Count 35 X10^3/uL (150-400)
[2018-02-28 23:41] LABS: Platelet Estimate Decreased on smear
[2018-02-28 23:42] LABS: Anisocytosis 3+; Macrocytosis 1+; Polychromasia 1+
[2018-02-28 23:43] LABS: Schistocytes 1+
[2018-03-01 00:27] VITALS: BP 174/104; PULSE 78; RESP 22; O2SAT 93
[2018-03-01] MEDS: HYDROMORPHONE 2 MG INJ IV (00:36)
[2018-03-01] MEDS: GABAPENTIN 600 MG TABLET 1200 MG PO (01:51)
[2018-03-01] MEDS: KETAMINE 500 MG/5 ML INJ 15 MG IV ×2 (02:29→07:46)
[2018-03-01 02:36] VITALS: BP 170/106; PULSE 74; RESP 22; O2SAT 100
[2018-03-01] MEDS: ACETAMINOPHEN 325 MG TABLET 650 MG PO (04:28)
[2018-03-01 04:30] VITALS: BP 158/101; PULSE 76; RESP 18; O2SAT 96
[2018-03-01 05:00] VITALS: BP 126/87; PULSE 76; RESP 15; TEMP 37.1; O2SAT 95
[2018-03-01 08:00] VITALS: BP 187/97; PULSE 92; RESP 18; O2SAT 95
== END 2018-03-01 08:15 | disposition short-term general hospital (02) ==
PROVIDERS: Emergency Provider Emergency Medicine; Family Provider Internal Medicine; PCP Internal Medicine
DX: M54.12 Radiculopathy, cervical region (principal)
CPT/HCPCS: 36591; 80048; 85025; 96374; 96375; 96376; 99283; 99284; J1170

== ENCOUNTER 2018-03-25 21:48 | Emergency (ER) | payer OTHER, SELFPAY ==
[2017-11-21 01:15] VITALS: BMI 28.7
--- NOTE | 2018-03-25 22:07 | DI.CT.S_ITS ---
PROCEDURE: CT CERVICAL SPINE WO CON INDICATIONS: weakness left arm, recent cervical surgery TECHNIQUE: Noncontrast 3 mm thick sections acquired from the skull base to the T4 level. Sagittal and coronal reformats were then constructed. For radiation dose reduction, the following was used: automated exposure control, adjustment of mA and/or kV according to patient size. COMPARISON: [facility], CT, CT CERVICAL SPINE WO CON, 09/24/2017, 19:25. FINDINGS: Image quality: Excellent. Bones: No fractures or dislocations. There is loss of normal cervical lordosis. There is a surgical defect related to left hemilaminectomy at C5. There is soft tissue edema and ill-defined fluid collection adjacent to the surgical site. Degenerative disc disease is present at C5-C6 and C6-C7. Visualized superior ribs are intact. Soft tissues: Prevertebral soft tissues are normal in thickness. No paravertebral hematomas. No apical pneumothoraces. Bilateral dependent atelectasis. IMPRESSION: 1. Post surgical changes at C5 with laminectomy. There is soft tissue edema and ill defined fluid density in the post surgical site. If there is clinical suspicion for postoperative infection, MRI with and without contrast is suggested for further evaluation. 2. Degenerative disc disease at C5-C6 and C6-C7. No significant discrepancy with the security shift supervisor radiology preliminary report. Dictated by: Riddhi Engel M.D. on 03/26/2018 at 8:05 Approved by: Riddhi Engel M.D. on 03/26/2018 at 9:56
--- NOTE | 2018-03-25 22:07 | DI.CT.S_ITS ---
PROCEDURE: CT HEAD/BRAIN WO CON INDICATIONS: left arm weakness, pain s/p cervical surgery, s/s x 1 week TECHNIQUE: Noncontrast 4.5 mm thick angled axial sections acquired from the foramen magnum to the vertex, with coronal and sagittal reformats. For radiation dose reduction, the following was used: automated exposure control, adjustment of mA and/or kV according to patient size. COMPARISON: [facility], CT, CT HEAD/BRAIN WO CON, 09/24/2017, 19:25. FINDINGS: Image quality: Excellent. CSF spaces: Basal cisterns are patent. No extra-axial fluid collections. The ventricles are symmetric in size and shape. Brain: No intracranial bleeds or masses. There is mild cerebral volume loss for age, with resultant ventricular and sulcal prominence. There are mild periventricular and deep white matter chronic small vessel ischemic changes. There is intracranial internal carotid artery atherosclerosis. Skull and face: Calvarium and visualized facial bones appear intact, without suspicious lesions. Sinuses: Mild ethmoid sinus because of thickening. Mastoids are clear. IMPRESSION: 1. No acute intracranial abnormalities. No significant discrepancy with the line producer radiology preliminary report. Dictated by: Riddhi Engel M.D. on 03/26/2018 at 7:46 Approved by: Riddhi Engel M.D. on 03/26/2018 at 7:47
[2018-03-25 22:08] VITALS: BP 152/91; PULSE 91; RESP 18; TEMP 37; O2SAT 96
[2018-03-25 23:30] VITALS: BP 119/65; PULSE 89; RESP 17; O2SAT 95
[2018-03-25 23:32] LABS: Basophils Percent Auto 0.6 % (0-2); Eosinophils Percent Auto 0.9 % (2-4); Hematocrit 27.5 % (41-53); Hemoglobin 9.2 g/dL (13.5-17.5); Lymphocytes Percent Auto 15.5 % (25-40); Mean Corpuscular HGB Conc 33.5 % (30-36); Mean Corpuscular Hemoglobin 35.5 PG (26-34); Mean Corpuscular Volume 105.9 fL (80-100); Monocytes Percent Auto 20.5 % (3-14); Neutrophils Absolute Auto 2400 /uL (3000-5900); Neutrophils Percent Auto 62.5 % (50-75); Red Blood Cell Count 2.59 X10^6/uL (4.5-5.9); Red Cell Distribution Width 22.7 % (11.6-14.8); White Blood Cell Count 3.8 X10^3/uL (4.5-11.0)
--- NOTE | 2018-03-25 23:32 | ED_ITS ---
HPI - Extremity Problem <Jenn Bazan, - Last Filed: 03/28/18 21:30> General Chief complaint: Extremity Injury, Upper Stated complaint: LT ARM PAIN Time Seen by Provider: 03/25/18 22:05 Source: patient and family Limitations: no limitations History of Present Illness HPI Narrative: This is a 68-year-old male who comes to the emergency department with complaint of weakness and increasing pain in his left arm and neck. Patient has known multiple myeloma. He had surgery on his cervical spine for complications with nerve compression secondary to the multiple myeloma. Patient states this was last Thursday. Patient states that his pain had improved , he had weakness and numbness on the right side that also had improved after the surgery. He was doing well and was discharged home. He started to have increasing weakness for the last week of the left arm and is unable to lift the shoulder, he is able to move the forearm and hand. His pain had also been increasing and his and him have been increasing his pain medications. He has not had any fevers. He has not any difficulty with speech or swallowing, he is not having any swelling at the surgical site or signs of infection. He states that the pain radiates from his neck down towards his elbow touch to the skin is also quite tender and painful. Movement makes it worse. He has not seen the surgeon since he was discharged. They have a follow-up appointment on the 08 of April. Patient has also had issues with low platelets and saw his primary care in the last 24 hr. They were recommended to come to the ER of initially went home to try to control pain there. Related Data Home Medications Medication Instructions Recorded Confirmed sennosides [senna] 2 tab PO HS 09/24/17 02/26/18 pomalidomide 2 mg PO DAILY 10/20/17 02/26/18 aspirin 325 mg tablet,delayed 325 mg PO DAILY 11/12/17 02/26/18 release dexamethasone 4 mg tablet See Label Instructions .ROUTE 11/12/17 02/26/18 .COMPLEX docusate sodium 100 mg capsule 100 mg PO BID tab 11/12/17 02/26/18 fludrocortisone 0.1 mg tablet 0.3 mg PO ONCE tab 11/12/17 02/26/18 hydrocortisone 10 mg tablet 10 mg PO QAM tab 11/12/17 02/26/18 magnesium L-lactate ER 84 mg 84 mg PO BID tab 11/12/17 02/26/18 tablet,extended release carfilzomib 1 dose CONTINUOUS IV INFUSION 2XW 01/04/18 02/26/18 acetaminophen 1 - 2 tab PO PRN PRN 02/26/18 02/26/18 calcium citrate-vitamin D3 2 tab PO BID 02/26/18 02/26/18 [Calcitrate-Vitamin D] cyclophosphamide See Label Instructions .ROUTE 02/26/18 02/26/18 .COMPLEX fentanyl 1 patch TRANSDERMAL Q72H 02/26/18 02/26/18 fentanyl 1 patch TRANSDERMAL Q72H 02/26/18 02/26/18 gabapentin [Neurontin] 1,200 mg PO TID 02/26/18 02/26/18 hydrocortisone 5 mg PO QNOON 02/26/18 02/26/18 multivitamin 1 tab PO DAILY 02/26/18 02/26/18 naloxone 2 spray INTRANASAL PRN PRN 02/26/18 02/26/18 omeprazole 20 mg PO DAILY 02/26/18 02/26/18 ondansetron 8 mg PO Q8H PRN 02/26/18 02/26/18 potassium chloride [Klor-Con M20] 20 meq PO .ONCE 02/26/18 02/26/18 prochlorperazine maleate 10 mg PO Q8H PRN 02/26/18 02/26/18 valacyclovir 1,000 mg PO DAILY 02/26/18 02/26/18 Previous Rx's Medication Instructions Recorded venlafaxine 150 mg PO QDAY #90 cap 04/07/17 atorvastatin [Lipitor] 10 mg PO HS #90 tab 08/24/17 prednisone See Label Instructions .ROUTE 02/26/18 .COMPLEX #30 tab hydromorphone 4 mg tablet 4 - 8 mg PO Q4H PRN #90 tab MDD 32 03/25/18 mg Allergies Allergy/AdvReac Type Severity Reaction Status Date / Time paroxetine [PAROXETINE] Allergy Severe SUICIDE Verified 03/25/18 22:16 THOUGHTS, REVED UP buspirone [BUSPIRONE] Allergy Mild NO Verified 03/25/18 22:16 FEELINGS, BONE carbamazepine [CARBAMAZEPINE] Allergy Mild RASH Verified 03/25/18 22:16 aripiprazole [ARIPIPRAZOLE] AdvReac Severe BLACKED Verified 03/25/18 22:16 OUT, FLAT, COULDN'T THINK lorazepam [From ATIVAN] AdvReac Severe SHAKING, Verified 03/25/18 22:16 AGITATION, CONFUSED Monoamine Oxidase Inhibitors AdvReac Severe Depression Verified 03/25/18 22:16 [MONOAMINE OXIDASE INHIBITORS] pregabalin [From LYRICA] AdvReac Unknown CONFUSION Verified 03/25/18 22:16 Review of Systems <Jenn Bazan DO - Last Filed: 03/28/18 21:30> Review of Systems All systems reviewed & are unremarkable except as noted in HPI and below Constitutional Denies fever(s) ENT Ears, Nose, Mouth, and Throat: Denies dysphagia, Denies hoarseness, Reports neck pain and Denies other (dysarthria) Cardiovascular Denies chest pain, Denies lightheadedness, Denies dyspnea and Denies dyspnea on exertion Respiratory Denies cough, Denies dyspnea, Denies dyspnea on exertion and Denies wheezing Gastrointestinal Gastrointestinal: Denies abdominal pain, Denies dysphagia, Denies fecal incontinence, Denies nausea and Denies vomiting Genitourinary Denies urinary incontinence Musculoskeletal Reports as per HPI, Reports muscle weakness (left upper arm), Reports neck pain , Reports numbness and Reports radiating pain into limb (left arm) Neurologic Reports numbness Allergic/Immunologic Denies wheezing Exam <Jenn Bazan DO - Last Filed: 03/28/18 21:30> Narrative Exam Narrative: GEN: well nourished male, alert and oriented x , patient appears to be in moderate distress. HEENT: Atraumatic, pupils are equal round reactive to light, extraocular movements are intact, nares are clear, no hoarseness. Patient's incision and is over the C 6 C7 region, appears clean dry and intact without any erythema, no discharge or signs of infection. HEART: Regular rate and rhythm without murmur, clicks, rubs. Pulses are equal in upper extremities LUNGS:Lungs clear to auscultation, no wheezes, rales, crackles, chest moves symmetrically ABD:bowel sounds normal, soft, non-tender, no guarding, rebound, rigidity, no masses noted, no hepatosplenomegaly MSCL: Non-tender although patient has some increased tenderness over the deltoid region with deep palpation, no muscle atrophy, patient has full range of motion of the right upper extremity, he is unable to lift the left upper extremity but is able to move from the elbow with no issue. Rn Neonatal Icu seems slightly decreased left versus right. NEURO:CN 2-12 intact, sensation normal, reflexes are difficult to obtain bilaterally Initial Vital Signs Initial Vital Signs: Vital Signs Temperature 98.6 F 03/25/18 22:08 Pulse Rate 91 H 03/25/18 22:08 Respiratory Rate 18 03/25/18 22:08 Blood Pressure 152/91 H 03/25/18 22:08 Pulse Oximetry 96 03/25/18 22:08 <Yung Deras DO - Last Filed: 03/26/18 14:59> Initial Vital Signs Initial Vital Signs: Vital Signs Temperature 98.6 F 03/25/18 22:08 Pulse Rate 91 H 03/25/18 22:08 Respiratory Rate 18 03/25/18 22:08 Blood Pressure 152/91 H 03/25/18 22:08 Pulse Oximetry 96 03/25/18 22:08 Course <Jenn Bazan DO - Last Filed: 03/28/18 21:30> Orders Ordered: Discontinued Medications Baclofen (Lioresal) 10 mg PO NOW ONE Stop: 03/26/18 00:21 Last Admin: 03/26/18 00:36 Dose: 10 mg Hydromorphone HCl (Dilaudid) 2 mg IV NOW ONE Stop: 03/25/18 22:36 Last Admin: 03/25/18 23:34 Dose: 2 mg Hydromorphone HCl (Dilaudid) 2 mg IV NOW ONE Stop: 03/26/18 00:18 Last Admin: 03/26/18 00:23 Dose: 2 mg Hydromorphone HCl (Dilaudid) 2 mg IV NOW ONE Stop: 03/26/18 00:54 Last Admin: 03/26/18 00:56 Dose: 2 mg Hydromorphone HCl (Dilaudid) 1 mg IV NOW ONE Stop: 03/26/18 02:31 Last Admin: 03/26/18 02:31 Dose: 1 mg Hydromorphone HCl (Dilaudid) 1 mg IV NOW ONE Stop: 03/26/18 02:38 Last Admin: 03/26/18 02:30 Dose: 1 mg Hydromorphone HCl (Dilaudid) 2 mg IV NOW ONE Stop: 03/26/18 03:31 Last Admin: 03/26/18 03:41 Dose: 2 mg Ketorolac Tromethamine (Toradol) 15 mg IV NOW ONE Stop: 03/26/18 01:14 Last Admin: 03/26/18 01:21 Dose: 15 mg Vital Signs - 8 hr 03/26/18 08:35 03/26/18 08:56 03/26/18 09:09 Pulse Rate 74 87 Respiratory Rate 10 L 14 14 Blood Pressure [Right Arm] 109/60 111/67 Pulse Oximetry 97 98 <Yung Deras, - Last Filed: 03/26/18 14:59> Orders Ordered: Discontinued Medications Baclofen (Lioresal) 10 mg PO NOW ONE Stop: 03/26/18 00:21 Last Admin: 03/26/18 00:36 Dose: 10 mg Hydromorphone HCl (Dilaudid) 2 mg IV NOW ONE Stop: 03/25/18 22:36 Last Admin: 03/25/18 23:34 Dose: 2 mg Hydromorphone HCl (Dilaudid) 2 mg IV NOW ONE Stop: 03/26/18 00:18 Last Admin: 03/26/18 00:23 Dose: 2 mg Hydromorphone HCl (Dilaudid) 2 mg IV NOW ONE Stop: 03/26/18 00:54 Last Admin: 03/26/18 00:56 Dose: 2 mg Hydromorphone HCl (Dilaudid) 1 mg IV NOW ONE Stop: 03/26/18 02:31 Last Admin: 03/26/18 02:31 Dose: 1 mg Hydromorphone HCl (Dilaudid) 1 mg IV NOW ONE Stop: 03/26/18 02:38 Last Admin: 03/26/18 02:30 Dose: 1 mg Hydromorphone HCl (Dilaudid) 2 mg IV NOW ONE Stop: 03/26/18 03:31 Last Admin: 03/26/18 03:41 Dose: 2 mg Ketorolac Tromethamine (Toradol) 15 mg IV NOW ONE Stop: 03/26/18 01:14 Last Admin: 03/26/18 01:21 Dose: 15 mg Reevaluation(s) Reevaluation #1: patient signed out from Dr. Bazan. Patient PCP became involved and helped orchestrate transfer and spoke directly with admitting physician at [facility] Vital Signs - 8 hr 03/26/18 08:35 03/26/18 08:56 03/26/18 09:09 Pulse Rate 74 87 Respiratory Rate 10 L 14 14 Blood Pressure [Right Arm] 109/60 111/67 Pulse Oximetry 97 98 MDM - Extremity (Nontraumatic) <Jennerin Bazan, - Last Filed: 03/28/18 21:30> Lab Data Result diagrams: 03/25/18 23:15 03/25/18 23:15 Lab Results 03/25/18 03/25/18 03/25/18 Range/Units 23:15 23:15 23:15 WBC 3.8 L (4.5-11.0) X10^3/uL RBC 2.59 L (4.5-5.9) X10^6/uL Hgb 9.2 L (13.5-17.5) g/dL Hct 27.5 L (41-53) % MCV 105.9 H (80-100) fL MCH 35.5 H (26-34) PG MCHC 33.5 (30-36) % RDW 22.7 H (11.6-14.8) % Plt Count 32 L* (150-400) X10^3/uL Neut % (Auto) 62.5 (50-75) % Lymph % (Auto) 15.5 L (25-40) % [place] % (Auto) 20.5 H (3-14) % Eos % (Auto) 0.9 L (2-4) % Baso % (Auto) 0.6 (0-2) % Neut # (Auto) 2400 L (0920-4469) /uL Platelet Estimate Decreased on smear RBC Morphology See below Polychromasia 1+ H Hypochromasia 1+ H Anisocytosis 3+ H Macrocytosis 1+ H PT 11.8 (10.1-12.7) SECONDS INR 1.1 (0.9-1.3) APTT 30 D (26.4-36.2) SECONDS Sodium 141 (137-145) mmol/L Potassium 3.6 (3.4-5.1) mmol/L Chloride 99 (98-107) mmol/L Carbon Dioxide 32 (22-32) mmol/L BUN 22 H (9-20) mg/dL Creatinine 0.70 (0.66-1.25) mg/dL Estimated GFR > 60.0 (>60) mL/min BUN/Creatinine Ratio 31.4 H (6-22) Glucose 127 H (80-110) mg/dL Calcium 8.4 (8.4-10.2) mg/dL Total Bilirubin 0.3 (0.2-1.3) mg/dL AST 30 (17-59) IU/L ALT 50 (21-72) IU/L Alkaline Phosphatase 132 H (38-126) U/L Total Protein 5.9 L (6.3-8.2) g/dL Albumin 3.7 (3.5-5.0) g/dL Globulin 2.2 (1.7-4.1) g/dL Albumin/Globulin Ratio 1.7 (1.0-2.8) Imaging Data CT scan - head: Radiologist's impression: Negative CT of brain parenchyma without IV contrast, mild mucosal thickening both ethmoid sinuses. Mild air-fluid levels inferior right mastoid but no bony erosion or fracture. Ct Cspine: Radiologist's impression: No fracture, left hemilaminectomy at C5. No other laminectomy site seen. Mild subcutaneous fluid density located posterior to C4 through 5 through C6 level compatible with the recent surgery. Right central venous catheter is seen extending into the superior vena cava in completely included. Patient also has an old deformity posterior left 4th rib. Marked disc space narrowing C6 through 7. Moderate disc space narrowing C5 through 6 and C7-T1. Mild disc space narrowing C4 through 5. Mild posterior osteophytes at C6 through 7. C4-5 has mild bony narrowing right neural foramen. C5-6 has posterior bony spurring centrally into the left causes mild left asymmetric spinal stenosis. Market bony narrowing right neural foramen. Mild narrowing left neural foramen. C6-7 posterior bony spurring at C6-7 with overlying posterior disc bulge causes mild spinal stenosis. Moderate to marked bilateral neural foraminal narrowing. MDM Narrative Medical decision making narrative: Low suspect this is more associated with his recent cervical surgery head CT was also obtained with his multiple myeloma and low platelet levels historically. Patient labs were also obtained. Patient's pain is improving he took several doses of medication at home was also given some additional medication here. He had his surgery done at [facility] with Dr. Atkins, they were contacted after imaging was reviewed. Dr. Atkins and I discussed recent changes and exam findings, patient Ct findings and lab findings. He is not able to view images although they have been pushed. Recontacted rads to see if they can push another way. After several hours while waiting transfer patient had been accepted by Dr. Reddy hospitalist at [facility]. Dr. Guzmán was able to view the images he feels that these are normal changes in that patient does not need a neurosurgical intervention at this time. Discussed with Dr. Daigle as patient likely needs pain control at this time is his main treatment. He feels that this is not appropriate location and patient needs to be with Oncology L of his other treatment modalities. Re-contacted [place] and they state that will have to discuss with a new hospitalist as it has been change of shift Um and this is not the original reason the patient was being transferred. Dr. Daigle discussed with [facility] Hospitalist and patient accepted for transfer. Dr. Sharma is the accepting physician. Dr. Deras accepts patient care until patient is transferred. <Yung Deras, DO - Last Filed: 03/26/18 14:59> Lab Data Lab Results 03/25/18 03/25/18 03/25/18 Range/Units 23:15 23:15 23:15 WBC 3.8 L (4.5-11.0) X10^3/uL RBC 2.59 L (4.5-5.9) X10^6/uL Hgb 9.2 L (13.5-17.5) g/dL Hct 27.5 L (41-53) % MCV 105.9 H (80-100) fL MCH 35.5 H (26-34) PG MCHC 33.5 (30-36) % RDW 22.7 H (11.6-14.8) % Plt Count 32 L* (150-400) X10^3/uL Neut % (Auto) 62.5 (50-75) % Lymph % (Auto) 15.5 L (25-40) % Bollinger % (Auto) 20.5 H (3-14) % Eos % (Auto) 0.9 L (2-4) % Baso % (Auto) 0.6 (0-2) % Neut # (Auto) 2400 L (3925-4276) /uL Platelet Estimate Decreased on smear RBC Morphology See below Polychromasia 1+ H Hypochromasia 1+ H Anisocytosis 3+ H Macrocytosis 1+ H PT 11.8 (10.1-12.7) SECONDS INR 1.1 (0.9-1.3) APTT 30 D (26.4-36.2) SECONDS Sodium 141 (137-145) mmol/L Potassium 3.6 (3.4-5.1) mmol/L Chloride 99 (98-107) mmol/L Carbon Dioxide 32 (22-32) mmol/L BUN 22 H (9-20) mg/dL Creatinine 0.70 (0.66-1.25) mg/dL Estimated GFR > 60.0 (>60) mL/min BUN/Creatinine Ratio 31.4 H (6-22) Glucose 127 H (80-110) mg/dL Calcium 8.4 (8.4-10.2) mg/dL Total Bilirubin 0.3 (0.2-1.3) mg/dL AST 30 (17-59) IU/L ALT 50 (21-72) IU/L Alkaline Phosphatase 132 H (38-126) U/L Total Protein 5.9 L (6.3-8.2) g/dL Albumin 3.7 (3.5-5.0) g/dL Globulin 2.2 (1.7-4.1) g/dL Albumin/Globulin Ratio 1.7 (1.0-2.8) Critical Care Time <Jenn Bazan, DO - Last Filed: 03/28/18 21:30> Critical Care Time: Yes Total Critical Care Time: 100 Attestation: The high probability of a clinically significant, sudden or life threatening deterioration of the neurologic system(s) required my full and direct attention , intervention and personal management. The aggregate critical care time was [ 100] minutes. This time is in addition to time spent performing reported procedures but includes the following: [x] Data Review and interpretation [x] Patient assessment and monitoring of vital signs [x] Documentation [x] Medication orders and management Discharge Plan Departure Patient Disposition: [facility] Clinical Impression: Intractable neuropathic pain of upper extremity Discharge Date/Time: 03/26/18 09:30 Interventions: ED Discharge Assessment Last Done: 03/26/18 09:25 Prescriptions: No Action venlafaxine 150 MG capsule,extended release 24hr 150 mg PO QDAY Qty: 90 RF: 3 atorvastatin [Lipitor] 10 MG tablet 10 mg PO HS Qty: 90 RF: 3 fludrocortisone 0.1 mg tablet 0.3 mg PO ONCE RF: 0 aspirin 325 mg tablet,delayed release (DR/EC) 325 mg PO DAILY RF: 0 dexamethasone 4 mg tablet See Label Instructions .ROUTE .COMPLEX RF: 0 docusate sodium 100 mg capsule 100 mg PO BID RF: 0 hydrocortisone [Cortef] 10 mg tablet 10 mg PO QAM RF: 0 magnesium L-lactate 84 mg tablet extended release 84 mg PO BID RF: 0 hydromorphone 4 mg tablet 4 - 8 mg PO Q4H MDD 32 mg PRN (Reason: Breakthrough Pain) Qty: 90 RF: 0 pomalidomide 4 mg Capsule 2 mg PO DAILY RF: 0 carfilzomib 1 dose Continuous IV Infusion 2XW RF: 0 sennosides [senna] 8.6 MG tablet 2 tab PO HS RF: 0 multivitamin Tablet 1 tab PO DAILY RF: 0 hydrocortisone 5 mg Tablet 5 mg PO QNOON RF: 0 acetaminophen 325 mg Tablet 1 - 2 tab PO PRN PRN (Reason: pain) RF: 0 valacyclovir 1 gram Tablet 1,000 mg PO DAILY RF: 0 prochlorperazine maleate 10 mg Tablet 10 mg PO Q8H PRN (Reason: Nausea And Vomiting) RF: 0 ondansetron 8 mg Tablet,Disintegrating 8 mg PO Q8H PRN (Reason: Nausea And Vomiting) RF: 0 fentanyl 100 mcg/hr Patch 72 Hour 1 patch TRANSDERMAL Q72H RF: 0 fentanyl 12 mcg/hr Patch 72 Hour 1 patch TRANSDERMAL Q72H RF: 0 calcium citrate-vitamin D3 [Calcitrate-Vitamin D] 315-250 mg-unit Tablet 2 tab PO BID RF: 0 cyclophosphamide 50 mg Capsule See Label Instructions .ROUTE .COMPLEX RF: 0 naloxone 4 mg/actuation [place],Non-Aerosol 2 spray INTRANASAL PRN PRN (Reason: oversedation) RF: 0 gabapentin [Neurontin] 400 mg capsule 1,200 mg PO TID RF: 0 potassium chloride [Klor-Con M20] 20 MEQ tablet,ER particles/crystals 20 meq PO .ONCE RF: 0 omeprazole 20 MG capsule,delayed release(DR/EC) 20 mg PO DAILY RF: 0 prednisone 10 mg tablet See Label Instructions .ROUTE .COMPLEX Qty: 30 RF: 0
[2018-03-25 23:34] LABS: INR 1.1 (0.9-1.3); Prothrombin Time 11.8 SECONDS (10.1-12.7)
[2018-03-25] MEDS: HYDROMORPHONE 1 MG INJ 2 MG IV (23:34)
[2018-03-25 23:37] LABS: PTT Partial Thromboplastin Tim 30 SECONDS (26.4-36.2)
[2018-03-25 23:39] LABS: Alanine Aminotransferase 50 IU/L (21-72); Albumin 3.7 g/dL (3.5-5.0); Albumin Globulin Ratio 1.7 (1.0-2.8); Alkaline Phosphatase 132 U/L (38-126); Aspartate Aminotransferase 30 IU/L (17-59); BUN Creatinine Ratio 31.4 (6-22); Bilirubin Total 0.3 mg/dL (0.2-1.3); Blood Urea Nitrogen 22 mg/dL (9-20); Calcium 8.4 mg/dL (8.4-10.2); Carbon Dioxide 32 mmol/L (22-32); Chloride 99 mmol/L (98-107); Estimated Glomerular Filt Rate > 60.0 mL/min (>60); Globulin 2.2 g/dL (1.7-4.1); Glucose 127 mg/dL (80-110); HEMOLYSIS < 15 (0-50); Potassium 3.6 mmol/L (3.4-5.1); Sodium 141 mmol/L (137-145); Total Protein 5.9 g/dL (6.3-8.2)
[2018-03-25 23:44] LABS: Add Manual Diff / Slide Review SLIDE REVIEW; Platelet Count 32 X10^3/uL (150-400)
[2018-03-26] VITALS (11 sets, daily range): BP systolic 105–133; BP diastolic 59–80; PULSE 72–87; RESP 10–18; O2SAT 93–100
[2018-03-26] MEDS: HYDROMORPHONE 1 MG INJ 2 MG IV ×3 (00:23→03:41)
[2018-03-26] MEDS: BACLOFEN 10 MG TABLET PO (00:36)
[2018-03-26 00:47] LABS: Platelet Estimate Decreased on smear
[2018-03-26 00:48] LABS: Anisocytosis 3+; Hypochromasia 1+; Macrocytosis 1+; Polychromasia 1+
--- NOTE | 2018-03-26 01:15 | PC.NURSE ---
03/25/18 2526 3 attempts at Port insertion failed. Used lidocaine prior to 2nd and 3rd insertion.
--- NOTE | 2018-03-26 01:18 | PC.NURSE ---
Patient complains that pain in left arm is returning and increasing. Will talk to [facility] about more medications.
--- NOTE | 2018-03-26 01:20 | PC.NURSE ---
Patient yelling in pain, Dr. Bazan aware, pain meds order.
--- NOTE | 2018-03-26 01:20 | PC.NURSE ---
Patient reports pain is returning in left arm. Ice applied to base of neck per request. Another pillow given for comfort.
[2018-03-26] MEDS: KETOROLAC 60 MG/2 ML VIAL 15 MG IV (01:21)
--- NOTE | 2018-03-26 01:32 | PC.NURSE ---
Patient having periods of sleep apnea leading to O2 Saturation dropping to 80's while sleeping. Placed on 2L O2 NC.
[2018-03-26] MEDS: HYDROMORPHONE 1 MG INJ IV ×2 (02:30→02:31)
== END 2018-03-26 09:30 | disposition short-term general hospital (02) ==
PROVIDERS: Emergency Medicine; Emergency Provider Emergency Medicine; Family Provider Internal Medicine; PCP Internal Medicine
DX: M79.2 Neuralgia and neuritis, unspecified (principal)
CPT/HCPCS: 36591; 70450; 72125; 80053; 85025; 85610; 85730; 96374; 96375; 96376; 99285; J1170; J1885